=== PATIENT | female | born 1990 | race Caucasian/White ===

== ENCOUNTER 2019-08-29 15:32 | Outpatient (RCR) | payer OTHER, SELFPAY ==
[2019-08-26 15:21] VITALS: BP 113/64; PULSE 91
--- NOTE | ~2019-08-29 | US_ITS ---
US OB BPP wo non-stress DATE: 08/26/2019 15:59 INDICATION: Intrauterine growth retardation TECHNIQUE: Real time imaging and doppler analysis COMPARISON: None FINDINGS: Live diaz intrauterine gestation, fetus in longitudinal lie, vertex presentation. Feta l heart rate of 144 bpm. The placenta is fundal. Subjectively normal amount of amniotic fluid with on e pocket measuring up to 3.4 cm depth. BIOPHYSICAL PROFILE reported by crown and bridge dental lab technician: breathin out of 2 movement: 2 out of 2 tone: 2 out of 2 Amniotic fluid pocket: 2 out of 2 Total score: 8 out of 8 IMPRESSION: Normal biophysical profile of 8 out of 8 Reviewed, dictated and finalized at [facility]. Reviewed, dictated and finalized at location [facility].
[2019-08-29 15:53] VITALS: BP 111/69; PULSE 91
== END 2019-09-07 08:16 | disposition home or self-care (01) ==
LOC: ANHOBOP 15:32
PROVIDERS: Visit Provider Obstetrics & Gynecology
DX: O36.5930 Maternal care for other known or suspected poor fetal growth, third trimester, not applicable or unspecified (principal); Z3A.38 38 weeks gestation of pregnancy
CPT/HCPCS: 59025; 76819

== ENCOUNTER 2019-09-02 05:20 | Inpatient (IN) | payer OTHER, SELFPAY ==
--- NOTE | 2019-08-10 14:56 | PC.NURSE ---
VERIFIED WITH OR SCHEDULE AND PATIENT--09/04/19 AT 0730 PATIENT GIVEN REQUISITION FOR LAB DRAW ON 09/03/19
[2019-09-02] VITALS (57 sets, daily range): BP systolic 82–131; BP diastolic 41–102; PULSE 59–116; RESP 16–18; TEMP 36.2–37.3; O2SAT 99–100; BMI 22.4
[2019-09-02 06:07] LABS: Basophils Percent Auto 0.3 % (0.2-1.2); Eosinophils Percent Auto 0.6 % (0-4.4); Hemoglobin 11.9 g/dL (12.0-15.0); Immature Granulocyte Absolute 0.05 K/mm3 (0.00-0.031); Immature Granulocyte Percent A 0.8 % (0-0.5); Lymphocytes Absolute Auto 1.84 K/mm3 (0.9-3.2); Lymphocytes Percent Auto 27.9 % (18.3-44.2); Mean Corpuscular Hemoglobin 31.2 pg (26-34); Mean Corpuscular Volume 91.6 fl (80-100); Mean Platelet Volume 9.8 fl (7.4-10.4); Monocytes Absolute Auto 0.6 K/mm3 (0.1-0.6); Monocytes Percent Auto 9.7 % (2.6-8.5); Neutrophils Percent Auto 60.7 % (45.5-73.1); Platelet Count Result 186 k/mm3 (150-375); Red Blood Count 3.82 M/mm3 (4.2-5.4); Red Cell Distribution Width 12.9 % (11.5-14.5); White Blood Count 6.6 K/mm3 (4.5-10.0)
[2019-09-02] MEDS: CLINDAMYCIN 900 MG/NS 50 ML 900 MG/50 ML PIGGYBACK 50 MG IVPB (06:31)
[2019-09-02] MEDS: LACTATED RINGERS 1,000 ML 999 ML IV CONT (06:31)
--- NOTE | 2019-09-02 06:43 | LDADM ---
This patient, Janene Bishop, was admitted to Labor/Delivery/Recovery 120 on 09/02/19 at 05:20. Plans for labor, pain management and were discussed with patient. Patient/family oriented to hospital policies and general routines including ID bracelet, bed and alarms, visiting hours, pain management, procedures, bathroom and other care routines, personal items, smoking policy, room service/diet and guest tray routines, security routines, and visiting hours. Patient/Family are encouraged to report perceived risks to care and to ask questions if they do not understand what they are told or what they should do. See OBIX for further documentation.
--- NOTE | 2019-09-02 06:59 | PM.IMHP ---
H&P: HPI History of Present Illness Chief complaint: c/s Narrative: Janene Bishop is a 28 year old female presents for repeat section. She is at 39 weeks with intrauterine growth restriction. testing throughout the last month has been reassuring. records are on the chart and no significant complications or issues other than that noted above. Review of Systems Review of Systems: All systems reviewed & are unremarkable except as noted in HPI and below PMFSH Family History Family History Other Unknown family medical history Social History Social History Substance use: never Spiritual care concerns: No Meds Home Medications and Allergies Home Medications Medication Instructions Recorded Confirmed Type PNV cmb#95-ferrous fumarate-FA 1 tablet PO DAILY 08/10/19 08/10/19 History [] ferrous sulfate 325 mg PO DAILY 08/10/19 08/10/19 History Allergies Allergy/AdvReac Type Severity Reaction Status Date / Time amoxicillin Allergy Severe Respiratory Verified 08/10/19 14:37 Distress Penicillins Allergy Severe Respiratory Verified 08/10/19 14:37 Distress Exam Const: General: no acute distress Resp: Auscultation: clear to auscultation bilaterally Cardio: Rate: regular rate Rhythm: regular rhythm GI: GI Palp: Yes Soft to palpation Auscultation: normal bowel sounds Other: FH 37cm FHT 130 Extrem: General: normal exam except as noted (minimal edema) H&P: Results Labs Labs: Short CBC 09/02/19 Range/Units 05:53 WBC 6.6 (4.5-10.0) K/mm3 Hgb 11.9 L (12.0-15.0) g/dL Hct 35.0 L (37.0-47.0) % Plt Count 186 (150-375) k/mm3 Assessment and Plan Assessment and plan (1) Previous section: Code(s): Z98.891 - History of uterine scar from previous surgery Status: Acute (2) Foetal growth restriction: Status: Acute Additional Plan Repeat delivery. Have discussed tubal ligation and patient declines.
--- NOTE | 2019-09-02 07:15 | P.PNAN_ITS ---
Anes - Initial Pre Proc Eval Procedure: Operation Date: 09/02/19 07:30 Proposed Procedures p Repeat Section - Jarrett Lu MD Date/Time: 09/02/19 07:15 Surgeon: Jarrett Lu MD Pre Op Diagnosis: c/s Patient Data Age: 28 Gender: F Height: 5 ft 1 in Weight: 54 kg Allergies Allergy/AdvReac Type Severity Reaction Status Date / Time amoxicillin Allergy Severe Respiratory Verified 08/10/19 14:37 Distress Penicillins Allergy Severe Respiratory Verified 08/10/19 14:37 Distress Home Medications Medication Instructions Recorded Confirmed Type PNV cmb#95-ferrous fumarate-FA 1 tablet PO DAILY 08/10/19 08/10/19 History [] ferrous sulfate 325 mg PO DAILY 08/10/19 08/10/19 History Laboratory Tests 09/02/19 09/02/19 05:53 05:53 WBC 6.6 K/mm3 K/mm3 (4.5-10.0) RBC 3.82 M/mm3 L M/mm3 (4.2-5.4) Hgb 11.9 g/dL L g/dL (12.0-15.0) Hct 35.0 % L % (37.0-47.0) MCV 91.6 fl fl (80-100) MCH 31.2 pg pg (26-34) MCHC 34.0 g/dl g/dl (32-36) RDW 12.9 % % (11.5-14.5) Plt Count 186 k/mm3 k/mm3 (150-375) MPV 9.8 fl fl (7.4-10.4) Immature Gran % (Auto) 0.8 % H % (0-0.5) Neut % (Auto) 60.7 % % (45.5-73.1) Lymph % (Auto) 27.9 % % (18.3-44.2) [place] % (Auto) 9.7 % H % (2.6-8.5) Eos % (Auto) 0.6 % % (0-4.4) Baso % (Auto) 0.3 % % (0.2-1.2) Lymph # (Auto) 1.84 K/mm3 K/mm3 (0.9-3.2) [place] # (Auto) 0.6 K/mm3 K/mm3 (0.1-0.6) Eos # (Auto) 0.0 K/mm3 K/mm3 (0-0.3) Baso # (Auto) 0.0 K/mm3 K/mm3 (0.0-0.1) Abs Immat Gran (auto) 0.05 K/mm3 H K/mm3 (0.00-0.031) Absolute Neuts (auto) 4.0 K/mm3 K/mm3 (1.3-6.7) Absolute Nucleated RBC 0.0 K/mm3 K/mm3 (0.0-0.012) Nucleated RBC % 0.0 % % (0.0-0.2) RPR Pending Patient hx anesthesia problems: none Family hx anesthesia problems: none PMFSH Family History Family History Other Unknown family medical history Social History Social History Smoking status: Never smoker Substance use: never Spiritual care concerns: No Anes - Eval Final PreProcedure Day of Procedure 09/02/19 07:15 Patient weight: normal Heart: regular rate and rhythm Lungs: clear to auscultation Airway: Mallampati scale class 1 Neurological: alert and oriented Last oral intake: >/= 8 hours ASA classification: II Emergent: no Anesthetic plan: proceed Anesthesia type and monitoring: regional spinal and standard monitoring Informed Consent: The patient's anesthetic plan and its attendant risks and benefits were discussed with the patient/family/POA. Questions were solicited and answers provided to the satisfaction of the patient/family/POA.
--- NOTE | 2019-09-02 08:18 | P.PCNOB_ITS ---
OB - Delivery Note Procedure Delivery date: 09/02/19 Procedure: Procedures LTCS Operation Date: 09/02/19 07:30 <No data on this case meets the specified criteria> Route of delivery: Specimen: Yes (placenta) Estimated blood loss (mL): 400 Anesthesia type: Spinal Disposition: PACU Narrative: Patient was prepped and draped in the usual sterile manner for this procedure. Pfannenstiel incision was made through the prior skin incision. This was then carried down to the fascia which was also incised and extended bilaterally the length of the skin incision. Fascia was then from muscle sharply and bluntly. Midline was entered and the peritoneum was entered without difficulty. Protractor was placed. Uterine incision was then made with clear fluid noted. Vertex was delivered and the rest of the baby followed without difficulty. Placenta was manually expressed and passed off the operative field after blood specimen and blood gases were obtained. Uterus was cleared of clots and then closed using 0 Vicryl suture in a running interlocking manner with good approximation and hemostasis noted. Uterus was turned to the abdomen gutters clear serous and fluids and clots all subfascial tissue was noted be hemostatic. Fascia was approximated using Vicryl suture from left an gle midline Mic low midline with good approximation hemostasis noted. Subcuticular 4 Monocryl was then used to approximate the skin edges. Patient was sent to recovery room in stable condition. [place] Baby Weeks of gestation at delivery: 39 Infant gender: Male Weight (pounds): 7 Weight (ounces): 1 presentation: vertex Placenta delivery description: Expressed score one minute: 8 score five minutes: 9
--- NOTE | 2019-09-02 08:24 | PM.OBPRVD ---
OB - Delivery Note Procedure Delivery date: 09/02/19 Procedure: Procedures Operation Date: 09/02/19 07:30 <No data on this case meets the specified criteria> Route of delivery: Specimen: Yes (placenta) Estimated blood loss (mL): 400 Anesthesia type: Spinal Disposition: PACU Narrative: Patient was prepped and draped in usual sterile manner for this procedure. Pfannenstiel incision was made which was then carried down to the fascia which also was extended bilaterally with the skin incision. Fascia was then dissected away from rectus muscles. Muscles were and the peritoneum was readily entered. Retractor was placed. Pfannenstiel incision was made uterus clear fluid was noted baby was delivered without difficulty in vertex position cord was clamped cut samples were obtained for cord gases blood work. Placenta was then manually expressed from the uterus and the uterus was cleared of membranes and clots. Vicryl was used to approximate incision running interlocking manner with good approximation hemostasis noted retractor was then all subfascial was tissue was noted be hemostatic. Fascia was approximated Vicryl suture right to midline left eyelid good approximation hemostasis noted. Subcuticular layer was then closed using 4 Monocryl running suture. This point CO2 was considered terminated media postop condition mother labor with excellent [place] Baby Weeks of gestation at delivery: 39 Infant gender: Male Weight (pounds): 7 Weight (ounces): 1 presentation: vertex Placenta delivery description: Expressed score one minute: 8 score five minutes: 9
--- NOTE | 2019-09-02 09:03 | PC.NURSE ---
0855 BABY INTO ROOM WITH Keri NGUYEN RN. HELPED WITH LATCH FOR . PT COMFORTABLE.
[2019-09-02 09:32] LABS: Rapid Plasma Reagin Non-Reactive (NonReactive)
--- NOTE | 2019-09-02 10:06 | SUR.PHASEI ---
0835 INTO OBR VIA STRETCHER. MONITORS APPLIED. REPORT FROM Nohemi HENSLEY COUNTER ROLLER
[2019-09-02] MEDS: MEPERIDINE HCL INJ 50 MG/ML AMPUL 25 MG IV PUSH (10:55)
[2019-09-02] MEDS: DEXTROSE 5%/0.45% SOD CHL 1,000 ML 125 ML IV CONT (11:00)
--- NOTE | 2019-09-02 13:38 | SUR.PHASEI ---
1230 RECOVERY COMPLETE AT 1100, BABY IN THE NURSERY BREATHING FAST AND EVALUATED BY DR ORTIZ SOLDER LEVELER PRINTED [employer] BOARDS AND WANTED MOM TO STAY AND TRY TO BREASTFEED ONE MORE TIME BEFORE TRANSFER TO [facility].
[2019-09-02] MEDS: IBUPROFEN 600 MG TABLET PO ×2 (14:13→22:26)
--- NOTE | 2019-09-02 17:44 | OBPPTRN ---
Patient transferred to post room #277 per stretcher. Support person present. Oriented to unit, room, information board, rooming in, admission packet and security measures. Patient verbalizes understanding.
[2019-09-03 05:00] VITALS: BP 96/57; PULSE 83; RESP 16; TEMP 36.3; O2SAT 99
[2019-09-03] MEDS: SIMETHICONE 80 MG TAB.CHEW PO ×5 (05:11→19:28)
[2019-09-03] MEDS: IBUPROFEN 600 MG TABLET PO ×3 (05:11→17:10)
[2019-09-03 06:32] LABS: Basophils Percent Auto 0.3 % (0.2-1.2); Eosinophils Percent Auto 0.5 % (0-4.4); Hematocrit 28.2 % (37.0-47.0); Hemoglobin 8.9 g/dL (12.0-15.0); Immature Granulocyte Absolute 0.04 K/mm3 (0.00-0.031); Immature Granulocyte Percent A 0.5 % (0-0.5); Lymphocytes Absolute Auto 1.24 K/mm3 (0.9-3.2); Lymphocytes Percent Auto 14.2 % (18.3-44.2); Mean Corpuscular HGB Conc 31.6 g/dl (32-36); Mean Corpuscular Hemoglobin 31.1 pg (26-34); Mean Corpuscular Volume 98.6 fl (80-100); Mean Platelet Volume 10.1 fl (7.4-10.4); Monocytes Absolute Auto 0.7 K/mm3 (0.1-0.6); Monocytes Percent Auto 8.5 % (2.6-8.5); Neutrophils Absolute Auto 6.6 K/mm3 (1.3-6.7); Platelet Count Result 147 k/mm3 (150-375); Red Blood Count 2.86 M/mm3 (4.2-5.4); Red Cell Distribution Width 13.3 % (11.5-14.5); White Blood Count 8.7 K/mm3 (4.5-10.0)
[2019-09-03 07:35] VITALS: BP 92/54; PULSE 82; RESP 16; TEMP 37.2; O2SAT 99
[2019-09-03] MEDS: POLYSACCHARIDE IRON COMPLEX 150 MG CAPSULE PO ×2 (08:32→17:10)
[2019-09-03] MEDS: MULTIVIT/MIN/PREN/FOL AC/IRON TABLET 1 TAB PO (08:32)
[2019-09-03] MEDS: DOCUSATE SODIUM 100 MG CAPSULE PO ×2 (08:32→17:10)
--- NOTE | 2019-09-03 09:39 | PM.OBDSVD ---
DS: Diagnosis Admitting Diagnosis Admitting Diagnosis: History of uterine scar from previous surgery OB - DS: Summary OB Procedures : None OB Procedures Intrapartum: OB Procedures: : None Peripartum Data Procedures: Procedures Operation Date: 09/02/19 07:30 Actual Procedures Side Surgeon p Section Not Applicable Lion Acevedo DO Time Spent with Patient Time attestation: Total time spent providing and/or coordinating discharge services: DS: Data Data Completed and Pending Pending studies at discharge: Pending at discharge 09/02/19 08:02 Surgical [PTH] Routine Labs on day of discharge: Labs from last 24 hours 09/03/19 09/03/19 09/02/19 04:55 04:55 05:53 WBC 8.7 RBC 2.86 L Hgb 8.9 L D Hct 28.2 L MCV 98.6 D MCH 31.1 MCHC 31.6 L RDW 13.3 Plt Count 147 L MPV 10.1 Immature Gran % (Auto) 0.5 Neut % (Auto) 76.0 H Lymph % (Auto) 14.2 L [place] % (Auto) 8.5 Eos % (Auto) 0.5 Baso % (Auto) 0.3 Lymph # (Auto) 1.24 [place] # (Auto) 0.7 H Eos # (Auto) 0.0 Baso # (Auto) 0.0 Abs Immat Gran (auto) 0.04 H Absolute Neuts (auto) 6.6 Absolute Nucleated RBC 0.0 Nucleated RBC % 0.0 Blood Type O Negative Antibody Screen Positive Antibody Identification Passive Due to RH Imm Glob Passive Due to RH Imm Glob Antigen Identification Cancelled Cancelled AYESHA, IgG Interpret Not Performed Negative AYESHA, Poly Interpret Negative Negative AYESHA, Complement Interp Not Performed Not Performed Screen Negative Baby's Blood Type A pos Baby's AYESHA Negative Doses of RhIg Required 1 Discharge Plan Discharge Discharging Clinician: Jarrett Lu Patient Disposition: Home, Self-Care Activity: no shower Diet: as tolerated Wound Care Instructions: incision open to air Patient Instructions: Antibiotic Form Stand Alone Forms: General Discharge Information Follow-up/Referrals: Jarrett Lu MD [Physician] - 3 Weeks Discharge Medications: New hydrocodone-acetaminophen 5-325 mg Tablet 1 tab PO Q3H PRN (Reason: Moderate Pain (4-6)) Qty: 30 RF: 0 ibuprofen 600 mg Tablet 600 mg PO Q6H PRN (Reason: Cramping) Qty: 30 RF: 0 Continued ferrous sulfate 325 mg (65 mg iron) Tablet 325 mg PO DAILY RF: 0 PNV cmb#95-ferrous fumarate-FA [] 28 mg iron- 800 mcg Tablet 1 tablet PO DAILY RF: 0 Date of admission: 09/02/19 05:20 Primary Care Provider: UNKNOWN,DOCTOR Admitting Provider: Jarrett Lu Attending physician on admission: Jarrett Lu
--- NOTE | 2019-09-03 11:30 | PC.NURSE ---
Mother called out for assist with feeding. Mother reports tenderness to nipples with feeding. Both nipples are reddened with possible incorrect latch. Reviewed infant feeding cues, frequencies, duration of feedings, feeding elimination flow sheet, and signs of adequate intake. Demonstrated stimulation techniques to wake infant for feeding. Assisted with to breast. Reviewed positioning/alignment in cross cradle, holding breast in U hold and guided asymmetrical latch on. Discussed rational for each. was able to latch correctly. Mother reports she can feel infant is latched more deeply than previous. nursed eagerly, with steady draws and frequent swallowing noted. Reviewed signs of a correct latch, effective nursing and suck swallow ratio. was able to maintain latch without discomfort to mother. Suggested to stimulate to keep infant nursing effectively for increased intake and assist maintaining deep latch. Demonstrated how to adjust latch more deeply while feeding. Nipple care reviewed. Instructed mother to call out for RN assistance if she is unable to latch infant for feeding or she has discomfort with nursing. Instructed feeding should be initiated three hours from start of last feeding or if feeding cues are noted before. Mother voiced understanding of information shared.
[2019-09-03] MEDS: RHO(D) IMMUNE GLOBULIN 300 MCG SYRINGE IM (15:20)
[2019-09-03 21:00] VITALS: BP 104/61; PULSE 88; RESP 16; TEMP 36.9; O2SAT 100
[2019-09-04] MEDS: SIMETHICONE 80 MG TAB.CHEW PO ×2 (00:55→10:09)
[2019-09-04] MEDS: IBUPROFEN 600 MG TABLET PO ×2 (00:55→10:10)
[2019-09-04 08:55] VITALS: BP 96/58; PULSE 77; RESP 16; TEMP 36.6; O2SAT 99
[2019-09-04] MEDS: DOCUSATE SODIUM 100 MG CAPSULE PO (10:09)
[2019-09-04] MEDS: POLYSACCHARIDE IRON COMPLEX 150 MG CAPSULE PO (10:09)
[2019-09-04] MEDS: MULTIVIT/MIN/PREN/FOL AC/IRON TABLET 1 TAB PO (10:09)
[2019-09-04] MEDS: TETANUS,DIPHTHERIA,AC PERTUSSIS ADULT (0.5 ML) BOOSTRIX (10:10)
[2019-09-05 10:06] VITALS: BP 108/65; PULSE 93; RESP 16; TEMP 36.8
--- NOTE | 2019-09-07 20:23 | PM.OBDSVD ---
DS: Diagnosis Admitting Diagnosis Admitting Diagnosis: History of uterine scar from previous surgery OB - DS: Summary OB Procedures : None OB Procedures Intrapartum: OB Procedures: : None Peripartum Data Procedures: Procedures Operation Date: 09/02/19 07:30 Actual Procedures Side Surgeon p Section Not Applicable Lion Acevedo DO Time Spent with Patient Time attestation: Total time spent providing and/or coordinating discharge services: DS: Data Data Completed and Pending Completed studies during hospitalization: Pending at discharge 09/02/19 08:02 Surgical [PTH] Routine Discharge Plan Discharge Discharging Clinician: Jarrett Lu Patient Disposition: Home, Self-Care Activity: no shower Diet: as tolerated Wound Care Instructions: incision open to air Discharge Instructions: Education: Mom and Baby Guide Given to: Mother Follow-Up: Call your delivering provider's office for an appointment to be seen in: 1 Week Mom and baby should come to the [facility] for the follow-up appointment. Appointment Date/Time: September 05, 2019 at 10:00 am What to expect at your follow-up visit: Physical Assessment Call [phone] if you are unable to keep your appointment time. BREAST CARE: 1. Wear a snug supportive bra. 2. For engorgement discomfort: Breast Feeding: A. Apply warm moist washcloths B. Express milk as needed to relieve engorgement C. Wear loose clothing 3. For sore nipples: A. Identify correct latch-on B. Apply warm moist washcloths before and after nursing C. Air dry nipples after nursing D. May apply Lansinoh cream to nipples ABDOMINAL INCISION: 1. Allow incision to air dry 2. Do NOT use lotions for powders on your incision 3. When showering, allow soap and water to run over the incision, but do not wash incision PERINEAL CARE: 1. Until bleeding stops, use your zackery bottle after urinating 2. Change your pad frequently throughout the day 3. No tub baths until seen by your physician - You may shower ACTIVITY: 1. Rest as much as possible. 2. Do not exercise or lift anything heavier than your baby (such as laundry or other children.) 3. Avoid stairs or driving as much as possible. 4. Do not put anything into the vagina. No douching, tampons, or sexual activity until seen by physician. NOTIFY PHYSICIAN IF YOU HAVE ANY QUESTIONS OR IF ANY OF THE FOLLOWING SYMPTOMS OCCUR: 1. If your incision becomes red, swollen, or more painful than what you have experienced in the hospital. 2. If your vaginal bleeding becomes foul smelling. 3. If your vaginal bleeding becomes more heavy than a period or if your bleeding changes from pink to bright red. However, you may pass an occasional walnut-sized clot once or twice for the first week . 4. If you experience a sharp, shooting pain in you calves. 5. If you discover a hard, reddened area on your breast or if you experience flu-like symptoms. DIET: 1. Eat regular, well-balanced meals. 2. Drink plenty of fluids daily. If , drink to thirst. Patient Instructions: Antibiotic Form Stand Alone Forms: General Discharge Information Follow-up/Referrals: Jarrett Lu MD [Physician] - 3 Weeks Discharge Medications: New hydrocodone-acetaminophen 5-325 mg Tablet 1 tab PO Q3H PRN (Reason: Moderate Pain (4-6)) Qty: 30 RF: 0 ibuprofen 600 mg Tablet 600 mg PO Q6H PRN (Reason: Cramping) Qty: 30 RF: 0 Continued ferrous sulfate 325 mg (65 mg iron) Tablet 325 mg PO DAILY RF: 0 PNV cmb#95-ferrous fumarate-FA [] 28 mg iron- 800 mcg Tablet 1 tablet PO DAILY RF: 0 Date of admission: 09/02/19 05:20 Primary Care Provider: UNKNOWN,DOCTOR Admitting Provider: Jarrett Lu Discharge Date/Time: 09/04/19 11:50 Attending physician on admission: Jarrett Lu
== END 2019-09-04 11:50 | disposition home or self-care (01) | DRG 540 ==
LOC: ANHLDR 05:23 → ANHOB2 12:41
PROVIDERS: Obstetrics & Gynecology; Admitting Provider Obstetrics & Gynecology; Visit Provider Obstetrics & Gynecology
PROC: (CPT 59514; principal; 2019-09-02 07:30)
DX: O36.5930 Maternal care for other known or suspected poor fetal growth, third trimester, not applicable or unspecified (principal); Z37.0 Single live birth; Z3A.39 39 weeks gestation of pregnancy
CPT/HCPCS: 36415; 85025; 86592; 86850; 86880; 86900; 86901; 86902; 88307; 90384; 90715; A9270; J0131; J1200; J1580; J2175; J2274; J2405; J2590; J2790; J7120

== ENCOUNTER 2021-01-28 21:42 | Emergency (ER) | payer OTHER, SELFPAY ==
--- NOTE | ~2021-01-28 | XR_ITS ---
XR chest 2V DATE: 01/28/2021 22:18 INDICATION: Cough. Left-sided chest pain. TECHNIQUE: PA and lateral views COMPARISON: None FINDINGS: There are bilateral cervical ribs. Mild thoracic dextroscoliosis. Bilateral hyperinflation. No pulmonary infiltrate or consolidation, pleural effusion or pulmonary vas cular congestion or pneumothorax. Normal heart size. No hilar or mediastinal enlargement. IMPRESSION: Bilateral hyperinflation; no active cardiac pulmonary disease Reviewed, dictated and finalized at location [facility].
--- NOTE | ~2021-01-28 | CT_ITS ---
EXAMINATION: CTA chest PE protocol DATE: 01/29/2021 02:15 INDICATION: Chest pain, shortness of breath TECHNIQUE: Computed tomography angiography (CTA) of the chest was performed with 100 mL Omnipaque-350 intravenous contrast timed to evaluate the pulmonary arteries. Coronal maximum intensity projection 3D-reconstructions were created by the technologist. Automated exposure control and iterative reconst ruction technique were employed. Exam dose: 144.10 mGy-cm total exam DLP. COMPARISON: PA and lateral chest FINDINGS: No CT evidence of pulmonary embolism. Normal heart size. No pericardial or pleural effusion. No thoracic aortic aneurysm or dissection. Normal size and homogeneous enhancement of the thyroid gland. No hilar or mediastinal mass lesion or lymphadenopathy No pulmonary infiltrate or consolidation or pulmonary mass lesion.. The adrenal glands and included upper abdominal structures are unremarkable. The skeletal structures are unremarkable. IMPRESSION: No evidence of pulmonary embolism Reviewed, dictated and finalized at [facility]. Reviewed, dictated and finalized at location A.
[2021-01-28 21:49] VITALS: BP 137/89; PULSE 123; RESP 20; TEMP 36.8; O2SAT 100
[2021-01-28 21:55] VITALS: BP 137/89; PULSE 106; RESP 11
[2021-01-28 22:01] VITALS: BP 137/85; PULSE 99; RESP 20
[2021-01-28] MEDS: KETOROLAC 30 MG/ML VIAL (*BKC) IV PUSH (22:31)
[2021-01-28 23:01] LABS: Basophils Absolute Auto 0.1 K/mm3 (0.0-0.1); Basophils Percent Auto 0.7 % (0.2-1.2); Eosinophils Absolute Auto 0.1 K/mm3 (0-0.3); Eosinophils Percent Auto 1.9 % (0-4.4); Hematocrit 37.5 % (37.0-47.0); Hemoglobin 12.4 g/dL (12.0-15.0); Immature Granulocyte Absolute 0.01 K/mm3 (0.00-0.031); Immature Granulocyte Percent A 0.1 % (0-0.5); Lymphocytes Absolute Auto 2.73 K/mm3 (0.9-3.2); Lymphocytes Percent Auto 37.8 % (18.3-44.2); Mean Corpuscular HGB Conc 33.1 g/dl (32-36); Mean Corpuscular Hemoglobin 30.2 pg (26-34); Mean Corpuscular Volume 91.2 fl (80-100); Mean Platelet Volume 9.5 fl (7.4-10.4); Monocytes Absolute Auto 0.6 K/mm3 (0.1-0.6); Monocytes Percent Auto 8.7 % (2.6-8.5); Neutrophils Absolute Auto 3.7 K/mm3 (1.3-6.7); Neutrophils Percent Auto 50.8 % (45.5-73.1); Platelet Count Result 273 k/mm3 (150-375); Red Blood Count 4.11 M/mm3 (4.2-5.4); Red Cell Distribution Width 12.2 % (11.5-14.5); White Blood Count 7.2 K/mm3 (4.5-10.0)
[2021-01-28 23:26] LABS: Anion Gap 13 mmol/L (8-16); Blood Urea Nitrogen 12 mg/dL (7-17); Calcium 9.8 mg/dL (8.4-10.2); Carbon Dioxide 21 mmol/L (22-30); Chloride 102 mmol/L (98-107); Estimated CRCL calculation 89 ml/min; Estimated Glomerular Filt Rate > 60; Glucose 102 mg/dL (65-110); Potassium 3.4 mmol/L (3.4-5.0); Sodium 136 mmol/L (137-145)
[2021-01-28 23:38] LABS: Troponin I < 0.012 ng/mL (0.000-0.034)
[2021-01-29 00:09] VITALS: BP 134/84; PULSE 108; RESP 15; O2SAT 96
--- NOTE | 2021-01-29 00:34 | ED.GENADULT ---
HPI - General Adult General Chief complaint: Chest Pain Stated complaint: chest pain x 2 days, dry cough, headache Time Seen by Provider: 01/28/21 21:45 History of Present Illness HPI narrative: Patient is a 30-year-old female who presents ER with chest tightness. Ongoing for 2 days. Center of her chest. Cannot describe any aggravating or alleviating factors. Occasionally will go away. Reports some chest wall tenderness left lateral chest near the axilla and above the breast. No known trauma. Also had recent URI was swabbed for Covid which was negative. Reports her entire family had a cold. She denies productive cough of the time but does have a dry cough. No exertional component to the chest pain. Patient also reports mild headache that occasionally improves with [id number] pain medication. Patient does reports mild anxiety regarding this. Additionally patient reports that she recently passed a tonsil stone over the last couple days. No sore throat. Related Data Allergies Allergy/AdvReac Type Severity Reaction Status Date / Time amoxicillin Allergy Severe Respiratory Verified 01/28/21 21:57 Distress Penicillins Allergy Severe Respiratory Verified 01/28/21 21:57 Distress Review of Systems Review of Systems: All systems reviewed & are unremarkable except as noted in HPI and below Constitutional: Constitutional: Denies chills, Denies fever(s) and Denies weakness ENT: Denies nasal congestion and Denies sore throat Cardiovascular: Cardiovascular: Reports chest pain, Denies rapid heart rate and Denies radiating jaw, neck or arm pain Respiratory: Respiratory: Reports cough, Denies dyspnea and Denies wheezing Gastrointestinal: Gastrointestinal: Denies abdominal pain, Denies nausea and Denies vomiting Musculoskeletal: Musculoskeletal: Denies back pain and Denies muscle cramps Psychiatric: Psychiatric: Reports anxiety PMFSH Past Medical History Medical History (Updated 01/29/21 @ 03:01 by Marcio Iraheta MD) Healthy female adult Surgical History Surgical History (Updated 01/29/21 @ 00:47 by Marcio Iraheta MD) History of section Family History Family History Other Unknown family medical history Social History Social History Smoking status: Never smoker Substance use: never Spiritual care concerns: No Exam Narrative: GENERAL: Well-appearing, well-nourished, and in no acute distress. HEAD: Normocephalic, atraumatic. ENT: Mucous membranes moist. Normal posterior oropharynx without tonsillar hypertrophy or exudate. Uvula midline nonedematous. NECK: Supple. CHEST: Clear to auscultation. No respiratory distress. HEART: Regular rate and rhythm. Normal peripheral pulses. ABDOMEN: Soft, nontender, nondistended. EXTREMITIES: Normal range of motion. No edema. SKIN: Warm, dry, no rash. NEURO: Alert and oriented x3. PSYCH: Normal mood and affect. Course Course Emergency Course: Patient with occasional tachycardia. She reports that she is anxious. S1Q3T3, negative CTA. Informed results and gave reassurance. She does not have a PCP so we will give her the name of the on-call primary. Discussed return precautions and patient verbalized understanding. Vital Signs Vital signs: Vital Signs Temperature 98.3 F 01/28/21 21:49 Pulse Rate 123 H 01/28/21 21:49 Respiratory Rate 20 01/28/21 21:49 Blood Pressure 137/89 01/28/21 21:49 Pulse Oximetry 100 01/28/21 21:49 Temperature 98.3 F 01/28/21 21:49 Pulse Rate 95 01/29/21 01:51 Respiratory Rate 18 01/29/21 01:51 Blood Pressure 124/75 01/29/21 01:51 Pulse Oximetry 98 01/29/21 01:51 Medical Decision Making Vital Signs Vital Signs: Vital Signs Temperature 98.3 F 01/28/21 21:49 Pulse Rate 123 H 01/28/21 21:49 Respiratory Rate 20 01/28/21 21:49 Blood Pressure
--- NOTE | 2021-01-29 00:48 | ECG_ITS ---
Measurements Intervals [place] Rate: 97 P: 56 AL: 137 QRS: 83 QRSD: 88 T: 14 QT: 323 QTc: 412 Interpretive Statements SINUS RHYTHM BASELINE ARTIFACT- II, V3-V6 NORMAL ECG Electronically Signed On 01-29-2021 6:39:41 CDT by Floyd Diehl D.O.
[2021-01-29 01:51] VITALS: BP 124/75; PULSE 95; RESP 18; O2SAT 98
[2021-01-29 03:15] VITALS: BP 128/76; PULSE 88; RESP 16; O2SAT 100
== END 2021-01-29 03:35 | disposition home or self-care (01) ==
PROVIDERS: Emergency Provider Emergency Medicine
DX: R07.89 Other chest pain (principal)
CPT/HCPCS: 36415; 71046; 71275; 80048; 84484; 85025; 93005; 96374; 99284; J1885; Q9967

== ENCOUNTER 2021-02-06 12:37 | Emergency (ER) | payer OTHER, SELFPAY ==
[2021-02-06 12:59] VITALS: BP 153/94; PULSE 108; RESP 18; TEMP 37.1; O2SAT 100
[2021-02-06 15:09] VITALS: BP 131/79; PULSE 92; RESP 16; TEMP 36.9; O2SAT 100
[2021-02-06 16:08] VITALS: BP 138/99; PULSE 98; RESP 18; O2SAT 100
--- NOTE | 2021-02-06 16:22 | ED.GENADULT ---
HPI - General Adult General Chief complaint: Unspecified Stated complaint: WEAK Time Seen by Provider: 02/06/21 16:10 Source: patient Mode of arrival: ambulatory Limitations: no limitations History of Present Illness HPI narrative: Patient is a 30-year-old female complaining of fatigue, generalized weakness, cough nonproductive and body aches that started 1 week ago. Patient wants to be tested for Covid. Patient states that she has not been vaccinated. Patient denies any chest pain, shortness of breath, abdominal pain, nausea, vomiting, diarrhea, fever or chills. Related Data Home Medications Medication Instructions Recorded Confirmed No Home Medications 02/06/21 02/06/21 Allergies Allergy/AdvReac Type Severity Reaction Status Date / Time amoxicillin Allergy Severe Respiratory Verified 02/06/21 16:11 Distress Penicillins Allergy Severe Respiratory Verified 02/06/21 16:11 Distress Review of Systems Review of Systems: All systems reviewed & are unremarkable except as noted in HPI and below Constitutional: Constitutional: Denies chills, Denies excessive sweating, Denies fever(s), Denies headache(s), Denies lethargy, Denies malaise and Denies weight loss Eyes: Eyes: Denies blurry vision, Denies change in vision and Denies loss of vision ENT: Denies dizziness, Denies ear discharge, Denies headache(s), Denies lip swelling, Denies epistaxis, Denies nasal congestion, Denies neck pain, Denies throat swelling and Denies tongue swelling Cardiovascular: Cardiovascular: Denies chest pain, Denies chest pain at rest, Denies chest pain with activity, Denies diaphoresis, Denies rapid heart rate, Denies edema, Denies irregular heart rhythm, Denies lightheadedness, Denies palpitations, Denies dyspnea and Denies dyspnea on exertion Respiratory: Respiratory: Denies chest congestion, Denies hemoptysis, Denies dyspnea and Denies dyspnea on exertion Gastrointestinal: Gastrointestinal: Denies abdominal pain, Denies melena, Denies hematochezia, Denies diarrhea, Denies nausea, Denies vomiting and Denies hematemesis Musculoskeletal: Musculoskeletal: Denies abnormal gait, Denies deformity, Denies joint swelling, Denies limited range of motion, Denies neck pain and Denies numbness Neurologic: Denies Abnormal speech present, Denies abnormal gait, Denies confusion, Denies dizziness, Denies headache(s), Denies focal weakness, Denies loss of vision, Denies numbness, Denies Other visual disturbances, Denies Sensory deficit (Neuro) and Denies weakness Psychiatric: Psychiatric: Denies confusion, Denies depression, Denies auditory hallucinations, Denies homicidal ideation and Denies suicidal ideation Endocrine: Endocrine: Denies cold intolerance, Denies excessive sweating, Denies fatigue, Denies heat intolerance and Denies palpitations Hematologic/Lymphatic: Hematologic/Lymphatic: Denies easy bleeding and Denies easy bruising Allergic/Immunologic: Allergic/Immunologic: Denies lip swelling, Denies throat swelling and Denies tongue swelling PMFSH Past Medical History Medical History (Updated 02/06/21 @ 18:09 by Nomi aJnsen MD) Healthy female adult Surgical History Surgical History (Updated 01/29/21 @ 00:47 by Marcio Iraheta MD) History of section Family History Family History Other Unknown family medical history Social History Social History Smoking status: Never smoker Substance use: never Spiritual care concerns: No Comments Past medical history: None Family history: None Social history: Non-smoker no EtOH or drug use Exam Const: General: cooperative, healthy appearing, comfortable, no acute distress, well developed, alert and awake; No confusion Orientation/consciousness: oriented to person, oriented to place, oriented to time, patient oriented x3 and No confusion Limitations: n
[2021-02-06 18:45] VITALS: BP 129/85; PULSE 79; RESP 16; TEMP 36.4; O2SAT 97
[2021-02-07 19:54] LABS: SARS-CoV-2 RNA PCR Negative
== END 2021-02-06 18:47 | disposition home or self-care (01) ==
PROVIDERS: Emergency Provider Emergency Medicine; PCP Nurse Practitioner Family
DX: B34.9 Viral infection, unspecified (principal); Z20.822 Contact with and (suspected) exposure to COVID-19
CPT/HCPCS: 99283; C9803; U0003; U0005

== ENCOUNTER 2022-04-22 19:00 | Emergency (ER) | payer OTHER, SELFPAY ==
--- NOTE | ~2022-04-22 | XR_ITS ---
XR ankle RT min 3V DATE: 04/22/2022 19:20 INDICATION: Right ankle swelling and pain after missing a step TECHNIQUE: 3 views of right ankle COMPARISON: None FINDINGS: There is a transverse fracture at the lateral malleolus inferiorly with up to 3 mm inferior separation of the distal fracture fragment laterally but otherwise no significant displacement.. The re is overlying lateral soft tissue swelling. The medial malleolus and posterior malleolus are intact. The ankle mortise is preserved. IMPRESSION: Mildly inferiorly displaced lateral malleolar fracture with overlying soft tissue swellin g Reviewed, dictated and finalized at location A. NDER WIND UP TENDER IMPRESSION: Mildly inferiorly displaced lateral malleolar fracture with overlyi ng soft tissue swelling
[2022-04-22 19:23] VITALS: BP 132/72; PULSE 111; RESP 18; TEMP 37.7; O2SAT 100
--- NOTE | 2022-04-22 20:15 | ED.LOWEXIN ---
HPI - Extremity Injury (Lower) General Chief Complaint: Extremity Injury, Lower Stated Complaint: right ankle injury, missed step Time Seen by Provider: 04/22/22 20:12 History of Present Illness HPI Narrative: Patient is a 31-year-old female who presents ER with right ankle pain. Patient was stepping down a step when she twisted her ankle and felt a pop. She had sudden onset pain. She has swelling over lateral malleolus. No numbness or tingling. No additional injury. Related Data Allergies Allergy/AdvReac Type Severity Reaction Status Date / Time amoxicillin Allergy Severe Respiratory Verified 02/06/21 16:11 Distress Penicillins Allergy Severe Respiratory Verified 02/06/21 16:11 Distress Review of Systems Review of Systems: All systems reviewed & are unremarkable except as noted in HPI and below Musculoskeletal: Musculoskeletal: Reports arthralgias, Reports joint swelling and Denies muscle cramps Neurologic: Denies syncope, Denies focal weakness and Denies numbness PMFSH Past Medical History Medical History (Updated 04/22/22 @ 20:16 by Marcio Iraheta MD) Healthy female adult Surgical History Surgical History (Updated 01/29/21 @ 00:47 by Marcio Iraheta MD) History of section Family History Family History Other Unknown family medical history Social History Social History Smoking status: Never smoker Substance use: never Spiritual care concerns: No Exam Narrative: GENERAL: Well-appearing, well-nourished, and in no acute distress. HEAD: Normocephalic, atraumatic. HEART: Regular rate and rhythm. Normal peripheral pulses. ABDOMEN: Soft, nontender, nondistended. EXTREMITIES: Swelling and tenderness over the lateral malleolus of the right ankle. Limited range of motion due to pain. Neurovascular intact. SKIN: Warm, dry, no rash. NEURO: Alert and oriented x3. PSYCH: Normal mood and affect. Course Vital Signs Vital signs: Vital Signs Temperature 99.8 F H 04/22/22 19:23 Pulse Rate 111 H 04/22/22 19:23 Respiratory Rate 18 04/22/22 19:23 Blood Pressure 132/72 04/22/22 19:23 Pulse Oximetry 100 04/22/22 19:23 Oxygen Delivery Room Air 04/22/22 19:23 Temperature 99.8 F H 04/22/22 19:23 Pulse Rate 111 H 04/22/22 19:23 Respiratory Rate 18 04/22/22 19:23 Blood Pressure 132/72 04/22/22 19:23 Pulse Oximetry 100 04/22/22 19:23 Oxygen Delivery Room Air 04/22/22 19:23 Procedures Orthopedic Splinting/Casting Injury #1: Splinting/Casting Date: 04/22/22 Splinting/Casting Time: 20:28 Side: right Lower Extremity Injury Location: ankle Lower Extremity Immobilizer: stirrup splint Splint: customized in ED OCL: stirrup Pre-Procedure Neuro Vascular Exam: normal Post-Procedure Neuro Vascular Exam: normal Other Orthopedic Equipment: crutches MDM - Extremity Injury (Lower) Imaging Data Radiologist's impression: ITS Impressions Ankle X-Ray 04/22/22 19:21 IMPRESSION: Mildly inferiorly displaced lateral malleolar fracture with overlying soft tissue swelling Discharge Plan Discharge Clinical Impression: Ankle fracture Patient Disposition: Home, Self-Care Condition: Stable Instructions: Ankle Fracture (ED), Crutch Instructions (ED) Additional Instructions: Return the ER if you suffer recurrent injury, you have cold blue foot, you have chest pain or shortness of breath, you have additional concerns. Do not bear weight on the affected extremity. Follow-up with orthopedic surgery. Prescriptions: New hydrocodone-acetaminophen 5-325 mg tablet 1 tablet PO Q6H PRN (Reason: pain) Qty: 14 0RF Follow-up/Referrals: Mecca,Jen Iverson APRN [Primary Care Provider] - Hany Dias MD [Physician] - 1 Week
[2022-04-22] MEDS: HYDROcodone/acetaminophen (*CRX) 5-325 MG TABLET 1 TAB PO (20:44)
--- NOTE | 2022-04-22 20:48 | PC.NURSE ---
Pt refused [place] after scanning. Unable to undo administration in AUG. Wasted per protocol.
[2022-04-22] MEDS: ACETAMINOPHEN 325 MG TABLET 650 MG PO (20:54)
== END 2022-04-22 21:03 | disposition home or self-care (01) ==
LOC: ANHED 20:38
PROVIDERS: Emergency Provider Emergency Medicine; PCP Nurse Practitioner Family
DX: S82.61XA Displaced fracture of lateral malleolus of right fibula, initial encounter for closed fracture (principal); X50.9XXA Other and unspecified overexertion or strenuous movements or postures, initial encounter
CPT/HCPCS: 29515; 73610; 99284; A9270

== ENCOUNTER 2022-05-09 15:39 | Observation (INO) | payer OTHER, SELFPAY ==
[2022-05-09] VITALS (11 sets, daily range): BP systolic 114–138; BP diastolic 61–86; PULSE 116–145; RESP 12–21; TEMP 36.8; O2SAT 98–100
--- NOTE | ~2022-05-09 | US_ITS ---
EXAMINATION: US thyroid DATE: 05/10/2022 16:21 INDICATION: Hyperthyroidism. TECHNIQUE: Multiple ultrasound images of the thyroid were obtained. COMPARISON: None. FINDINGS: The right thyroid lobe measures 5.1 x 1.3 x 1.8 cm. The left thyroid lobe measures 4.2 x 1.2 x 1.4 c m. The thyroid is diffusely heterogeneous and hypoechoic with increased vascularity. No discrete nod ule. IMPRESSION: 1. Heterogeneous, hypervascular thyroid, consistent with chronic lymphocytic (Alex) thyroiditis versus Graves' disease. Reviewed, dictated and finalized at location A. SCAPE DRAFTER IMPRESSION: 1. Heterogeneous, hypervascular thyroid, consistent with chronic lymphocytic (H ashimoto) thyroiditis versus Graves' disease.
--- NOTE | ~2022-05-09 | XR_ITS ---
EXAMINATION: XR chest 1V portable Exam Date/Time: 05/09/2022 16:15 ONSITE CASE MANAGER HISTORY: sob x 2 days; tachycardia Comparison: 01/28/2021. RESULT: Lines, tubes, and devices: None. Lungs and pleura: Clear. Cardiomediastinal silhouette: Stable. Other: No acute osseous or upper abdominal finding. IMPRESSION: No acute cardiopulmonary process. Reviewed, dictated and finalized at location K. TE CASE MANAGER
--- NOTE | 2022-05-09 15:45 | ECG_ITS ---
Measurements Intervals [place] Rate: 140 P: 75 NV: 134 QRS: 86 QRSD: 79 T: 27 QT: 294 QTc: 449 Interpretive Statements SINUS TACHYCARDIA MINIMAL Q WAVES- INFERIOR LEADS NONSPECIFIC ST & T-WAVE ABNORMALITY- INFERIOR LEADS ABNORMAL ECG COMPARED TO ECG 01/29/2021 00:58:44 [address]ARDIA NOW PRESENT ST-T-WAVE ABNORMALITY NOW PRESENT Electronically Signed On 05-09-2022 16:13:24 MULTIGRAPHER by Floyd Diehl D.O.
[2022-05-09 15:57] LABS: Basophils Percent Auto 0.2 % (0.2-1.2); Eosinophils Percent Auto 0.1 % (0-4.4); Hematocrit 38.1 % (37.0-47.0); Hemoglobin 12.8 g/dL (12.0-15.0); Immature Granulocyte Absolute 0.05 K/mm3 (0.00-0.031); Immature Granulocyte Percent A 0.4 % (0-0.5); Lymphocytes Absolute Auto 1.44 K/mm3 (0.9-3.2); Lymphocytes Percent Auto 11.4 % (18.3-44.2); Mean Corpuscular HGB Conc 33.6 g/dl (32-36); Mean Corpuscular Hemoglobin 29.8 pg (26-34); Mean Corpuscular Volume 88.6 fl (80-100); Mean Platelet Volume 9.2 fl (7.4-10.4); Monocytes Absolute Auto 0.6 K/mm3 (0.1-0.6); Neutrophils Absolute Auto 10.5 K/mm3 (1.3-6.7); Neutrophils Percent Auto 82.9 % (45.5-73.1); Platelet Count Result 316 k/mm3 (150-375); Red Cell Distribution Width 11.4 % (11.5-14.5); White Blood Count 12.7 K/mm3 (4.5-10.0)
[2022-05-09 16:08] LABS: Alanine Aminotransferase 18 U/L (6-35); Albumin Level 4.7 g/dL (3.5-5.1); Alkaline Phosphatase 58 U/L (38-126); Anion Gap 11 mmol/L (8-16); Aspartate Amino Transferase 21 U/L (14-36); Bilirubin,Total 0.5 mg/dL (0.2-1.3); Blood Urea Nitrogen 11 mg/dL (7-17); Calcium 9.5 mg/dL (8.4-10.2); Carbon Dioxide 18 mmol/L (22-30); Chloride 105 mmol/L (98-107); Estimated CRCL calculation 104 ml/min; Estimated Glomerular Filt Rate > 60; Glucose 111 mg/dL (65-110); Potassium 3.6 mmol/L (3.4-5.0); Sodium 134 mmol/L (137-145)
--- NOTE | 2022-05-09 16:12 | ED.ARRPALP ---
HPI - Arrhythmia/Palpitations General Chief Complaint: Arrhythmia/Palpitations Stated Complaint: tachycardic Time Seen by Provider: 05/09/22 16:00 History of Present Illness HPI narrative: Patient is a 31-year-old female presenting with tachycardia. Patient states that she first noticed her heart was racing approximately 6 days ago. States that she has an apple watch and her heart rate was in the 180s. States that she sat down and her heart rate improved but states that she remained in the 120s to 130s over the next several days. Today she went into see her PCP and was noted to be again tachycardic in the 180s to 200. Patient states that she does feel short of breath but she denies lightheadedness. States that sometimes she has pain in her chest that she attributes to musculoskeletal pain. States that her heart rate is always fast but it is usually in the 110s. She denies recent fevers, headache, cough, abdominal pain, nausea or vomiting, diarrhea, leg swelling. Patient states that she is approximately 4 weeks . Related Data Home Medications Medication Instructions Recorded Confirmed buspirone 10 mg tablet 10 mg PO BID 04/26/22 05/10/22 Allergies Allergy/AdvReac Type Severity Reaction Status Date / Time Penicillins Allergy Severe Hives Verified 05/10/22 00:43 amoxicillin Allergy Intermediate Hives Verified 05/10/22 00:44 Review of Systems Review of Systems: All systems reviewed & are unremarkable except as noted in HPI and below PMFSH Past Medical History Medical History Healthy female adult Surgical History Surgical History History of section Family History Family History Sibling Graves disease Alex's disease Grandparent Heart disease Hypertension Father Asthma Mother Hypertension Other Unknown family medical history Social History Social History Smoking status: Never smoker Second hand tobacco smoke exposure: Yes Alcohol intake: never Substance use: never Substance use type: does not use Lack of Transportation: No Lack of Food: Never True Current Housing: I Have Housing Concerned About Future Housing: No Difficulty Paying Gas/Electric Bills: No Difficulty Paying for Meds: No Currently Unemployed: No Education: Grade School Difficulty w/ Childcare or Family Care: No 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 HEAD: Normocephalic, atraumatic. EYES: PERRLA and EOMI. ENT: Nares clear, no rhinorrhea or epistaxis. Mucous membranes moist. NECK: Supple. CHEST: Clear to auscultation. No respiratory distress. HEART: Tachycardic, regular rhythm. No murmur heard. Normal peripheral pulses. ABDOMEN: Soft, nontender, nondistended, normal active bowel sounds. EXTREMITIES: Normal range of motion. No edema. SKIN: Warm, dry, no rash. NEURO: No focal deficits. Alert and oriented x3. PSYCH: Normal mood and affect. Course Vital Signs Vital signs: Vital Signs Temperature 98.2 F 05/09/22 15:43 Pulse Rate 145 H 05/09/22 15:43 Respiratory Rate 18 05/09/22 15:43 Blood Pressure 138/76 05/09/22 15:43 Pulse Oximetry 100 05/09/22 15:43 Temperature 98.7 F 05/10/22 13:48 Pulse Rate 114 H 05/10/22 16:00 Respiratory Rate 18 05/10/22 13:48 Blood Pressure 122/83 05/10/22 13:48 Pulse Oximetry 100 05/10/22 13:48 Oxygen Delivery Room Air 05/10/22 09:30 MDM - Arrhythmia/Palpitations MDM Narrative Medical decision making narrative: Patient is a 31-year-old female presenting with tachycardia. Patient is tachycardic in the 140s. Normotensive and saturating 100% on room ai
[2022-05-09] MEDS: SODIUM CHLORIDE 0.9% IV 1,000 ML 999 ML IV CONT (16:34)
[2022-05-09 16:58] LABS: Troponin I < 0.012 ng/mL (0.000-0.034)
[2022-05-09 17:02] LABS: Beta HCG Quantitative 620.65 mIU/ML
[2022-05-09 17:18] LABS: Appearance Urine Slightly Cloudy (Clear); Bilirubin Urine 1+ (Negative); Blood Urine Trace-lysed (Negative); Color Urine Yellow (Yellow); Glucose Urine UA Negative (Negative); Ketones Urine 4+ mg/dL (Negative); Leukocyte Esterase Ur Negative LEU/UL (Negative); Nitrate Urine Negative (Negative); Protein Urine Negative (Negative); Specific Grav Ur >= 1.030 (1.001-1.035); Urobilinogen Urine 0.2 mg/dL (<2.0)
[2022-05-09 17:21] LABS: Mucus Urine Heavy /lpf; RBC Urine 0-2 /hpf (0-2); Squamous Epithelial Cell Urine Few /hpf (Few); WBC Urine 0-3 /hpf
[2022-05-09 17:28] LABS: Add Urine Microscopic? YES
[2022-05-09 17:29] LABS: Thyroid Stimulating Hormone Reflex < 0.015 uIU/mL (0.465-4.68)
[2022-05-09 18:03] LABS: D Dimer 0.48 ug/mL (<0.48)
[2022-05-09 18:27] LABS: Free T4 Free Thyroxine Reflex 3.94 ng/dL (0.78-2.19)
--- NOTE | 2022-05-09 20:08 | PM.IMHP ---
H&P: HPI History of Present Illness Date/Time: 05/09/22 20:08 Chief Complaint: Palpitations Narrative: This is a 31-year-old female with no significant past medical history, patient presents to the emergency room after she was sent out from her primary care physician's office after obtaining lab work that was consistent with hyperthyroidism patient had been in to see his primary care physician due to palpitations her Apple watch showed a heart rate in the 180's. patient also has had shortness of breath with it feeling very fatigue and tired at times. patient is currently 4 weeks as well. Patient denies any leg swelling, PND, orthopnea. patient is been admitted for further evaluation management and treatment. Review of Systems Review of Systems: Palpitations, shortness of breath, fatigue. Constitutional: Constitutional: Denies chills, Reports fatigue, Denies fever(s), Denies malaise, Denies night sweats, Denies poor appetite and Denies weakness Eyes: Eyes: Denies change in vision ENT: Denies dysphagia, Denies vertigo, Denies dizziness and Denies odynophagia Cardiovascular: Cardiovascular: Denies chest pain, Denies leg edema, Reports palpitations and Reports dyspnea on exertion Respiratory: Respiratory: Denies chest congestion, Denies cough, Denies excessive phlegm production, Denies pain on inspiration and Denies wheezing Gastrointestinal: Gastrointestinal: Denies abdominal pain, Denies dyspepsia, Denies heartburn, Denies diarrhea, Denies nausea and Denies vomiting Genitourinary: Genitourinary: Denies dysuria Musculoskeletal: Musculoskeletal: Denies back pain, Denies myalgias, Denies joint swelling and Denies muscle weakness Integumentary/Breasts: Skin/Breast: Denies rash Neurologic: Denies vertigo, Denies dizziness, Denies focal weakness and Denies Sensory deficit (Neuro) Psychiatric: Psychiatric: Reports no additional psychiatric complaints and Reports as per HPI Endocrine: Endocrine: Denies cold intolerance, Reports fatigue, Denies flushing, Denies heat intolerance, Denies polyphagia, Denies polydipsia and Reports palpitations Hematologic/Lymphatic: Hematologic/Lymphatic: Reports no additional hematologic/lymphatic complaints and Reports as per HPI Allergic/Immunologic: Allergic/Immunologic: Reports no additional allergic/immunologic complaints and Reports as per HPI [facility] Past Medical History Medical History Healthy female adult Surgical History Surgical History History of section Family History Family History Sibling Graves disease Alex's disease Grandparent Heart disease Hypertension Father Asthma Mother Hypertension Other Unknown family medical history Social History Social History Smoking status: Never smoker Alcohol intake: never Substance use: never 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 Spiritual care concerns: No Meds Home Medications and Allergies Home Medications Medication Instructions Recorded Confirmed Type hydrocodone 5 mg-acetaminophen 325 1 tablet PO Q6H PRN pain #14 tabs 04/22/22 05/02/22 Rx mg tablet buspirone 10 mg tablet 10 mg PO BID 04/26/22 05/02/22 History buspirone 10 mg tablet 10 mg PO BID 05/09/22 05/09/22 History Allergies Allergy/AdvReac Type Severity Reaction Status Date / Time amoxicillin Allergy Severe Respiratory Verified 05/02/22 07:55 Distress Penicillins Allergy Severe Respiratory Verified 05/02/22 07:55 Distress Vital Signs Vital Signs - 24 hr 05/09/22 15:43 05/09/22 17:00 05/09/22 18:09 Temperature 98.2 F Pulse Rate 145 H 138 H 128 H Respiratory Rate 18 18 Blood Pressure 138/76 126/77 Pulse Oximetry 100 99 05/09/22 18:09 05/09/22 19
[2022-05-09] MEDS: methylPREDNISolone SOD SUCC 125 MG VIAL IV PUSH (20:22)
[2022-05-09 21:59] LABS: Influenza A QL RT-PCR Negative (Negative); Influenza B QL RT-PCR Negative (Negative); SARS-CoV-2 RNA PCR Negative
[2022-05-10] VITALS (12 sets, daily range): BP systolic 111–123; BP diastolic 53–83; PULSE 97–138; RESP 16–21; TEMP 35.9–37.1; O2SAT 99–100; BMI 18.8
--- NOTE | 2022-05-10 | ECHO_ITS ---
Patient Info Name: Janene Bihsop Age: 31 years : 1990 Gender: Female Ht: 61 in Wt: 105 lbs BSA: 1.43 m2 HR: 107 bpm BP: 123 / 53 mmHg Technical Quality: Good Exam Date: 05/10/2022 10:35 AM Exam Location: [facility] Exam Room: [facility] Patient Status: Inpatient Admit Date: 05/09/2022 Staff Ordering Physician: Jose Gomez MD Pot Press Operator: Shoshana Palacios RCS Attending Provider: Agustin Alas MD Referring Physician: Jason GARCÍA; Exam Type: CA echo doppler color flow Study Info Indications - tachycardia hyperthyroid Complete two-dimensional, color flow and Doppler transthoracic echocardiogram is performed. Summary 1. Complete two-dimensional, color flow and Doppler transthoracic echocardiogram is performed. 2. Left ventricular chamber dimension is normal. 3. Left ventricular systolic function is normal, estimated at 65-70%. 4. The left ventricular diastolic function is normal. 5. E/e' 7 is not elevated. 6. No pulmonary hypertension, estimated pulmonary arterial systolic pressure is 14 mmHg. Left Ventricle E/e' 7 is not elevated. Left ventricular chamber dimension is normal. Left ventricular systolic function is normal, estimated at 65-70%. The left ventricular diastolic function is normal. Right Ventricle Right ventricular chamber dimension is normal. Right ventricular systolic function is normal. Left Atria Left atrial chamber dimension is normal. Right Atria Right atrial chamber dimension is normal. Aortic Valve The aortic valve is trileaflet. There is no aortic valve stenosis. There is no aortic valve regurgitation. Pulmonic Valve There is no pulmonic regurgitation. Mitral Valve There is no mitral valve stenosis. There is no mitral valve regurgitation. Tricuspid Valve There is no tricuspid valve regurgitation. No pulmonary hypertension, estimated pulmonary arterial systolic pressure is 14 mmHg. Pericardium/Pleural There is no pericardial effusion. Inferior Vena Cava Normal inferior vena cava with >50% collapse upon inspiration consistent with normal right atrial pressure, 5 mmHg. Aorta The aortic root size at the sinus of Valsalva is normal. Left Ventricular Outflow Tract Name Value Normal LVOT 2D LVOT Diameter 2.0 cm LVOT Doppler LVOT Peak Gradient 8 mmHg LVOT Mean Gradient 5 mmHg LVOT VTI 25 cm LVOT VTI/AV VTI Ratio 1.0 LVOT Stroke Volume 75 ml LVOT CO 19.1 l/min LVOT CI 13.3 l/min/m2 Pulmonic Valve Name Value Normal PV Doppler PV Peak Gradient 5 mmHg Mitral Valve
[2022-05-10] MEDS: PROPRANOLOL HCL 40 MG TABLET PO ×3 (00:20→22:02)
--- NOTE | 2022-05-10 00:46 | ADMGEN ---
This patient, Janene Bishop, was admitted to 3 [facility] Surg Room 315-01. Patient/family oriented to hospital policies and general routines including ID bracelet, bed and alarms, visiting hours, pain management, procedures, bathroom and other care routines, personal items, smoking policy, room service/diet, and visiting hours. Information on how to activate the Rapid Response Team has been discussed. Patient/Family are encouraged to report perceived risks to care and to ask questions if they do not understand what they are told or what they should do.
[2022-05-10] MEDS: methylPREDNISolone SOD SUCC 40 MG VIAL IV PUSH ×3 (06:41→17:31)
--- NOTE | 2022-05-10 09:43 | PC.NURSE ---
Addendum entered by Angelina Singleton RN 05/10/22 10:23: stated to hold medication for now, will look into it when he arrives at the hospital. Original Note: Spoke with Dr Alas about the medication Tapazole ordered for patient and warning states to not give in .
--- NOTE | 2022-05-10 15:31 | PM.IMPN ---
Progress Note: A&P Assessment and Plan (1) Thyrotoxicosis due to Graves' disease: Code(s): E05.00 - Thyrotoxicosis with diffuse goiter without thyrotoxic crisis or storm Status: Acute Assessment and Plan: Will start on propylthiouracil. Methimazole is contraindicated in started on propranolol systemic steroids follow-up with endocrinology in outpatient setting Will get thyroid ultrasound (2) : Code(s): Z34.90 - Encounter for supervision of normal , unspecified, unspecified trimester Status: Acute Assessment and Plan: patient is currently 4 weeks Subjective Date/time seen: 05/10/22 15:31 Patient appears anxious. No other issues at this time Review of Systems Review of Systems: Palpitations, shortness of breath, fatigue. Constitutional: Constitutional: Denies chills, Reports fatigue, Denies fever(s), Denies malaise, Denies night sweats, Denies poor appetite and Denies weakness Eyes: Eyes: Denies change in vision ENT: Denies dysphagia, Denies vertigo, Denies dizziness and Denies odynophagia Cardiovascular: Cardiovascular: Denies chest pain, Denies leg edema, Reports palpitations and Reports dyspnea on exertion Respiratory: Respiratory: Denies chest congestion, Denies cough, Denies excessive phlegm production, Denies pain on inspiration and Denies wheezing Gastrointestinal: Gastrointestinal: Denies abdominal pain, Denies dyspepsia, Denies heartburn, Denies diarrhea, Denies nausea and Denies vomiting Genitourinary: Genitourinary: Denies dysuria Musculoskeletal: Musculoskeletal: Denies back pain, Denies myalgias, Denies joint swelling and Denies muscle weakness Integumentary/Breasts: Skin/Breast: Denies rash Neurologic: Denies vertigo, Denies dizziness, Denies focal weakness and Denies Sensory deficit (Neuro) Psychiatric: Psychiatric: Reports no additional psychiatric complaints and Reports as per HPI Endocrine: Endocrine: Denies cold intolerance, Reports fatigue, Denies flushing, Denies heat intolerance, Denies polyphagia, Denies polydipsia and Reports palpitations Hematologic/Lymphatic: Hematologic/Lymphatic: Reports no additional hematologic/lymphatic complaints and Reports as per HPI Allergic/Immunologic: Allergic/Immunologic: Reports no additional allergic/immunologic complaints and Reports as per HPI Exam Narrative: patient is laying in a stretcher Const: General: comfortable, no acute distress, well developed, alert, awake and average body habitus Nutritional Appearance: thin Orientation/consciousness: patient oriented x3 HENMT: Head: normal to inspection, normocephalic and atraumatic Ears: hearing grossly normal bilaterally Face/Nose/Sinus: normal facial exam Face and sinus: normal facial exam Eyes: General: appearance normal, both eyes and all related structures Pupils: Equal, round and reactive pupils present EOM: EOMs intact bilaterally Neck: Neck: full ROM, no lymphadenopathy and no JVD Thyroid: thyroid normal Lymphatic: no lymphadenopathy noted Resp: Effort & Inspection: normal respiratory effort and able to speak in complete sentences Auscultation: clear to auscultation bilaterally Cardio: Jugular venous distension: no JVD Rate: tachycardic Rhythm: regular rhythm Heart sounds: S1 normal heart sound present and S2 normal heart sound present GI: Inspection: normal to inspection GI Palp: Yes Soft to palpation and Yes No hepatosplenomegaly present : General: Yes deferred Skin: Rashes: no rashes Wounds: no wounds Neuro: General: patient oriented x3 and CN's II-XI intact bilaterally Cranial nerves: Yes CN's II-XII intact bilaterally and Yes Equal, round and reactive pupils present Cognition (Neuro): normal cognition Speech: normal speech Gait exam (Neuro): Unable to assess gait Motor exam (neuro): 5/5 motor strength present throughout Extrem: General: normal to inspection, full ROM, no joint enlargement a
[2022-05-10] MEDS: propylthiouraciL 50 MG TABLET 300 MG PO ×2 (17:31→22:02)
[2022-05-11] MEDS: methylPREDNISolone SOD SUCC 40 MG VIAL IV PUSH ×2 (00:17→06:31)
[2022-05-11] MEDS: busPIRone HCL 10 MG TABLET PO ×2 (00:18→08:14)
[2022-05-11 05:29] VITALS: BP 103/61; PULSE 85; RESP 16; TEMP 36.1; O2SAT 98
[2022-05-11] MEDS: propylthiouraciL 50 MG TABLET 300 MG PO (06:31)
[2022-05-11 08:00] VITALS: PULSE 102
[2022-05-11 08:14] VITALS: PULSE 112
[2022-05-11] MEDS: PROPRANOLOL HCL 40 MG TABLET PO (08:14)
--- NOTE | 2022-05-11 10:04 | PM.DS ---
DS: Admitting Diagnosis Discharge Date 05/11/2022 Admitting Diagnosis Hyperthyroidism DS: Discharge Diagnosis Discharge Diagnosis (1) Thyrotoxicosis: Code(s): E05.90 - Thyrotoxicosis, unspecified without thyrotoxic crisis or storm Status: Acute (2) : Code(s): Z34.90 - Encounter for supervision of normal , unspecified, unspecified trimester Status: Acute DS: Summary Hospital Course Hospital Course: This is a 31-year-old female with no significant past medical history, patient presents to the emergency room after she was sent out from her primary care physician's office after obtaining lab work that was consistent with hyperthyroidism patient had been in to see his primary care physician due to palpitations her Apple watch showed a heart rate in the 180's.? patient also has had shortness of breath with it feeling very fatigue and tired at times. patient is currently 4 weeks as well.? Patient was started on Ultmann open wound along with IV steroids. She was started on propylthiouracil. She cannot get methimazole because she is . Patient's heart rate has been well controlled here. She is currently stable. Thyroid ultrasound showed . Heterogeneous, hypervascular thyroid, consistent with chronic lymphocytic (Alex) thyroiditis versus Graves' disease. Patient is clinically stable and has been discharged home. Patient advised to follow-up with endocrinology as outpatient Time Spent with Patient Time attestation: Total time spent providing and/or coordinating discharge services: Exam Const: General: comfortable, no acute distress, well developed, alert, awake and average body habitus Nutritional Appearance: thin Orientation/consciousness: patient oriented x3 HENMT: Head: normal to inspection, normocephalic and atraumatic Ears: hearing grossly normal bilaterally Face/Nose/Sinus: normal facial exam Face and sinus: normal facial exam Eyes: General: appearance normal, both eyes and all related structures Pupils: Equal, round and reactive pupils present EOM: EOMs intact bilaterally Neck: Neck: full ROM, no lymphadenopathy and no JVD Thyroid: thyroid normal Lymphatic: no lymphadenopathy noted Resp: Effort & Inspection: normal respiratory effort and able to speak in complete sentences Auscultation: clear to auscultation bilaterally Cardio: Jugular venous distension: no JVD Rate: tachycardic Rhythm: regular rhythm Heart sounds: S1 normal heart sound present and S2 normal heart sound present GI: Inspection: normal to inspection GI Palp: Yes Soft to palpation and Yes No hepatosplenomegaly present : General: Yes deferred Skin: Rashes: no rashes Wounds: no wounds Neuro: General: patient oriented x3 and CN's II-XI intact bilaterally Cranial nerves: Yes CN's II-XII intact bilaterally and Yes Equal, round and reactive pupils present Cognition (Neuro): normal cognition Speech: normal speech Gait exam (Neuro): Unable to assess gait Motor exam (neuro): 5/5 motor strength present throughout Extrem: General: normal to inspection, full ROM, no joint enlargement and no pedal edema Other: right ankle fracture brace in place Discharge Plan Discharge Discharging Clinician: Agustin Alas Anticipated Discharge Date/Time: 05/11/22 09:38 Patient Disposition: Home, Self-Care Activity: october shower Diet: regular Patient Instructions: Antibiotic Form Stand Alone Forms: General Discharge Information Follow-up/Referrals: Mecca,Jen Iverson, [place] [Primary Care Provider] - Discharge Medications: New propranolol 40 mg Tablet 40 mg PO Q12HR Qty: 30 0RF propylthiouracil 50 mg Tablet 300 mg PO Q8HR 30 Days Qty: 540 0RF Continued buspirone 10 mg tablet 10 mg PO BID Date of admission: 05/09/22 19:41 Primary Care Provider: MeccaJen Admitting Provider: Jose Gomez V. Attending physician on admission: Agustin Alas
[2022-05-11 12:00] VITALS: PULSE 87
== END 2022-05-11 12:50 | disposition home or self-care (01) ==
LOC: ANHED 16:12 → ANH3MEDSUR 22:07
PROVIDERS: Emergency Medicine; Admitting Provider Internal Medicine; Emergency Provider Emergency Medicine; PCP Nurse Practitioner Family; Visit Provider Hospitalist
DX: O26.891 Other specified pregnancy related conditions, first trimester (principal); E05.90 Thyrotoxicosis, unspecified without thyrotoxic crisis or storm; R06.02 Shortness of breath; R94.31 Abnormal electrocardiogram [ECG] [EKG]; Z3A.01 Less than 8 weeks gestation of pregnancy; Z82.49 Family history of ischemic heart disease and other diseases of the circulatory system; Z82.5 Family history of asthma and other chronic lower respiratory diseases; Z79.891 Long term (current) use of opiate analgesic; Z79.899 Other long term (current) drug therapy; Z20.822 Contact with and (suspected) exposure to COVID-19
CPT/HCPCS: 36415; 71045; 76536; 80053; 81001; 84439; 84443; 84484; 84702; 85025; 85380; 86900; 86901; 87636; 93005; 93306; 96361; 96374; 96376; 99285; A9270; G0378; G0379; J2920; J2930; J7030

== ENCOUNTER 2022-05-20 13:14 | Emergency (ER) | payer OTHER, SELFPAY ==
[2022-05-20 13:29] VITALS: BP 124/62; PULSE 90; RESP 18; TEMP 36.9; O2SAT 100
--- NOTE | 2022-05-20 14:29 | ED.ALLEREA ---
HPI - Allergic Reaction General Chief complaint: Allergic Reaction Stated complaint: rash, Propylthiouracil new med Time Seen by Provider: 05/20/22 13:24 History of Present Illness HPI narrative: 31-year-old female recently diagnosed with hyperthyroidism/Graves' disease presents to the emergency room for evaluation of a pruritic rash body aches. Patient states she recently started taking PTU and propranolol. Noticed that she developed a rash in her chest and back yesterday and that is pruritic. Took Benadryl once. Denies any shortness of breath occultly breathing. Also complaining of generalized fatigue and body aches. Denies any shortness of breath, difficulty breathing swallowing. Denies chest pain. States that she has appointment with her biologist aide on Saturday. Related Data Home Medications Medication Instructions Recorded Confirmed buspirone 10 mg tablet 10 mg PO BID 04/26/22 05/10/22 Allergies Allergy/AdvReac Type Severity Reaction Status Date / Time Penicillins Allergy Severe Hives Verified 05/20/22 13:18 amoxicillin Allergy Intermediate Hives Verified 05/20/22 13:18 Review of Systems Review of Systems: CONSTITUTIONAL: Denies fever, chills, or sweats. EYES: Denies visual changes, redness, or discharge. ENT: Denies rhinorrhea, congestion, sore throat, or otalgia. CARDIOVASCULAR: Denies chest pain, palpitations, or edema. RESPIRATORY: Denies cough or dyspnea. GASTROINTESTINAL: Denies abdominal pain, nausea, vomiting, or diarrhea. GENITOURINARY: Denies dysuria or hematuria. SKIN: Reports rash MUSCULOSKELETAL: Reports body aches NEUROLOGIC: Denies headache, numbness, dizziness, or weakness. PSYCHIATRIC: Denies anxiety or depression. [facility] Past Medical History Medical History Healthy female adult Surgical History Surgical History History of section Family History Family History Sibling Graves disease Alex's disease Grandparent Heart disease Hypertension Father Asthma Mother Hypertension Other Unknown family medical history Social History Social History Smoking status: Never smoker Second hand tobacco smoke exposure: Yes Alcohol intake: never Substance use: never Substance use type: does not use Lack of Transportation: No Lack of Food: Never True Current Housing: I Have Housing Concerned About Future Housing: No Difficulty Paying Gas/Electric Bills: No Difficulty Paying for Meds: No Currently Unemployed: No Education: Grade School Difficulty w/ Childcare or Family Care: No 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 HEAD: Normocephalic, atraumatic. EYES: Conjunctivae normal, PERRLA and EOMI. NECK: Supple.No carotid bruits or JVD CHEST: Clear to auscultation. No respiratory distress. No wheezes rales or rhonchi. HEART: Regular rate and rhythm. No murmur heard. Normal peripheral pulses. EXTREMITIES: Normal range of motion. No edema. No clubbing or cyanosis SKIN: Fine, diffuse, pruritic erythematous maculopapular rash distributed over the anterior posterior torso and face NEURO: No focal deficits. Alert and oriented x3. MAEW. CN's II-XI intact bilaterally, normal gait PSYCH: Cooperative. Normal mood and affect. Course Vital Signs Vital signs: Vital Signs Temperature 36.9 C 05/20/22 13:29 Pulse Rate 90 05/20/22 13:29 Respiratory Rate 18 05/20/22 13:29 Blood Pressure 124/62 05/20/22 13:29 Pulse Oximetry 100 05/20/22 13:29 Oxygen Delivery Room Air 05/20/22 13:29 Temperature 36.9 C 05/20/22 13:29 Pulse Rate 90 05/20/22 13:29 Respiratory R
[2022-05-20 14:40] LABS: Basophils Percent Auto 0.2 % (0.2-1.2); Eosinophils Absolute Auto 0.2 K/mm3 (0-0.3); Eosinophils Percent Auto 4.5 % (0-4.4); Hematocrit 39.9 % (37.0-47.0); Hemoglobin 13.1 g/dL (12.0-15.0); Immature Granulocyte Absolute 0.03 K/mm3 (0.00-0.031); Immature Granulocyte Percent A 0.7 % (0-0.5); Lymphocytes Absolute Auto 0.57 K/mm3 (0.9-3.2); Lymphocytes Percent Auto 13.4 % (18.3-44.2); Mean Corpuscular HGB Conc 32.8 g/dl (32-36); Mean Corpuscular Hemoglobin 29.6 pg (26-34); Mean Corpuscular Volume 90.1 fl (80-100); Mean Platelet Volume 10.1 fl (7.4-10.4); Monocytes Absolute Auto 0.4 K/mm3 (0.1-0.6); Monocytes Percent Auto 9.6 % (2.6-8.5); Neutrophils Absolute Auto 3.1 K/mm3 (1.3-6.7); Neutrophils Percent Auto 71.6 % (45.5-73.1); Platelet Count Result 201 k/mm3 (150-375); Red Blood Count 4.43 M/mm3 (4.2-5.4); Red Cell Distribution Width 11.8 % (11.5-14.5); White Blood Count 4.3 K/mm3 (4.5-10.0)
[2022-05-20 14:53] LABS: Alanine Aminotransferase 20 U/L (6-35); Albumin Level 4.5 g/dL (3.5-5.1); Alkaline Phosphatase 44 U/L (38-126); Anion Gap 10 mmol/L (8-16); Aspartate Amino Transferase 29 U/L (14-36); Bilirubin,Total 0.8 mg/dL (0.2-1.3); Blood Urea Nitrogen 11 mg/dL (7-17); Calcium 9.3 mg/dL (8.4-10.2); Carbon Dioxide 21 mmol/L (22-30); Chloride 106 mmol/L (98-107); Estimated CRCL calculation 97 ml/min; Estimated Glomerular Filt Rate > 60; Glucose 97 mg/dL (65-110); Potassium 4.2 mmol/L (3.4-5.0); Sodium 137 mmol/L (137-145)
== END 2022-05-20 15:38 | disposition home or self-care (01) ==
PROVIDERS: Emergency Provider Nurse Practitioner Family; PCP Nurse Practitioner Family
DX: L27.0 Generalized skin eruption due to drugs and medicaments taken internally (principal); T50.905A Adverse effect of unspecified drugs, medicaments and biological substances, initial encounter; E05.00 Thyrotoxicosis with diffuse goiter without thyrotoxic crisis or storm
CPT/HCPCS: 36415; 80053; 85025; 96372; 99283; J1100

== ENCOUNTER 2022-10-27 08:59 | Outpatient (RCR) | payer OTHER, SELFPAY ==
[2022-10-24 15:26] LABS: Basophils Percent Auto 0.4 % (0.2-1.2); Eosinophils Absolute Auto 0.2 K/mm3 (0-0.3); Eosinophils Percent Auto 1.8 % (0-4.4); Hematocrit 28.4 % (37.0-47.0); Hemoglobin 9.8 g/dL (12.0-15.0); Immature Granulocyte Absolute 0.07 K/mm3 (0.00-0.031); Immature Granulocyte Percent A 0.9 % (0-0.5); Lymphocytes Absolute Auto 1.27 K/mm3 (0.9-3.2); Lymphocytes Percent Auto 15.5 % (18.3-44.2); Mean Corpuscular HGB Conc 34.5 g/dl (32-36); Mean Corpuscular Hemoglobin 33.7 pg (26-34); Mean Corpuscular Volume 97.6 fl (80-100); Mean Platelet Volume 9.5 fl (7.4-10.4); Monocytes Absolute Auto 0.6 K/mm3 (0.1-0.6); Monocytes Percent Auto 7.1 % (2.6-8.5); Neutrophils Absolute Auto 6.1 K/mm3 (1.3-6.7); Neutrophils Percent Auto 74.3 % (45.5-73.1); Platelet Count Result 193 k/mm3 (150-375); Red Blood Count 2.91 M/mm3 (4.2-5.4); Red Cell Distribution Width 13.2 % (11.5-14.5); White Blood Count 8.2 K/mm3 (4.5-10.0)
[2022-10-24 15:42] LABS: Glucose 1 Hour PP 50gm Dose 70 mg/dL
[2022-10-24 16:19] LABS: HIV 1/2 Ab P24 Ag Result Negative (Negative)
[2022-10-27] MEDS: RHO(D) IMMUNE GLOBULIN 300 MCG/2 ML SYRINGE IM (10:47)
== END 2022-10-27 09:00 | disposition home or self-care (01) ==
LOC: ANHLAB 08:59
PROVIDERS: PCP Nurse Practitioner Family; Visit Provider Obstetrics & Gynecology
DX: Z11.4 Encounter for screening for human immunodeficiency virus [HIV] (principal); Z29.13 Encounter for prophylactic Rho(D) immune globulin; O36.0190 Maternal care for anti-D [Rh] antibodies, unspecified trimester, not applicable or unspecified; Z3A.00 Weeks of gestation of pregnancy not specified
CPT/HCPCS: 36415; 82947; 85025; 85461; 86703; 86850; 86900; 86901; 90384; 96372; G0432; J2790

== ENCOUNTER 2022-11-10 14:19 | Observation (INO) | payer OTHER, SELFPAY ==
[2022-11-10 14:45] VITALS: BP 106/66; PULSE 90
[2022-11-10 15:00] VITALS: BP 112/62; PULSE 83
[2022-11-10 15:15] VITALS: BP 106/60; PULSE 84
[2022-11-10 15:31] LABS: Appearance Urine Clear (Clear); Bilirubin Urine Negative (Negative); Blood Urine Negative (Negative); Color Urine Yellow (Yellow); Glucose Urine UA Negative (Negative); Ketones Urine Trace mg/dL (Negative); Leukocyte Esterase Ur Negative LEU/UL (NEGATIVE); Nitrate Urine Negative (Negative); Protein Urine Negative (Negative); Urobilinogen Urine 0.2 mg/dL (<2.0); pH Urine 5.5 (5.0-9.0)
[2022-11-10 15:39] LABS: Add Urine Microscopic? NO
--- NOTE | 2022-11-10 16:30 | PC.NURSE ---
Patient taking PO fluids, tolerating well. States that she is feeling a little better. No vomiting noted.
--- NOTE | 2022-11-10 16:38 | PC.NURSE ---
Dr Snyder notified of adm c/o, no contractions noted or palpated and UA results. Ok to dc home and encourage PO fluids as tolerated.
--- NOTE | 2022-11-13 07:26 | PM.OBTRLD ---
OB - Triage/Final Diagnosis Visit Information Reason for evaluation: other ( nausea with vomiting; cramping) Comments/Additional reasons for admission: I have assessed the risk for this patient, Janenekristopher Bishop, and determined that she would benefit from observation care. Evaluation Laboratory results: Laboratory Tests 11/10/22 15:03 Urine Color Yellow Urine Appearance Clear Urine pH 5.5 Ur Specific Theodore 1.020 Urine Protein Negative Urine Glucose (UA) Negative Urine Ketones Trace H Ur Blood (Man) Negative Urine Nitrate Negative Urine Bilirubin Negative Urine Urobilinogen 0.2 Ur Leukocyte Esterase Negative
== END 2022-11-10 16:56 | disposition home or self-care (01) ==
PROVIDERS: Admitting Provider Obstetrics & Gynecology Gynecology; PCP Nurse Practitioner Family; Visit Provider Obstetrics & Gynecology Gynecology
DX: O21.2 Late vomiting of pregnancy (principal); O26.893 Other specified pregnancy related conditions, third trimester; R10.9 Unspecified abdominal pain; Z3A.31 31 weeks gestation of pregnancy
CPT/HCPCS: 81003; 87086; G0378; G0379

== ENCOUNTER 2022-11-12 04:05 | Observation (INO) | payer OTHER, SELFPAY ==
[2022-11-12] VITALS (82 sets, daily range): BP systolic 74–128; BP diastolic 53–72; PULSE 28–151; TEMP 36.6; O2SAT 73–100; BMI 23.3
--- NOTE | ~2022-11-12 | US_ITS ---
EXAMINATION: US OB limited w BPP DATE: 11/12/2022 09:42 INDICATION: Vaginal bleeding. Third trimester. TECHNIQUE: Real-time pelvic ultrasound was performed. COMPARISON: Ultrasound 06/22/2022 FINDINGS: There is a single living fetus in vertex presentation. The placenta is posterior and covers the inte rnal cervical os. heart rate is 135 beats per minute (bpm). Biophysical profile performed by the technologist: breathing (30 sec sustained breathing in 30 minutes): 2 out of 2 movement (3 gross body movements in 30 minutes): 2 out of 2 tone (one episode of fqegqpo-qbqjzzkbe-kglpbsi limb movement): 2 out of 2 Amniotic fluid pocket (2 cm): 2 out of 2 Total score: 8 out of 8 IMPRESSION: 1. Single living fetus in vertex presentation. 2. Biophysical profile 8 out of 8. 3. Placenta previa. Reviewed, dictated and finalized at location A.
--- NOTE | 2022-11-12 04:20 | OBADM ---
This patient, Janene Bishop, admitted to the OB room OB Post 117 for observation. Patient/family oriented to hospital policies and general routines including ID bracelet, bed and alarms, visiting hours, pain management, procedures, bathroom and other care routines, personal items, smoking policy, room service/diet, and visiting hours. Patient/Family are encouraged to report perceived risks to care and to ask questions if they do not understand what they are told or what they should do.
--- NOTE | 2022-11-12 04:46 | PM.IMHP ---
H&P: HPI History of Present Illness Date/Time: 11/12/22 04:46 Chief Complaint: Bleeding Narrative: She is a at 30 weeks with known posterior placenta previa. Presented today with bleeding at 3pm. She has been on pelvic rest. Occasional BH. On L and D uterine irritability, initially, then improved, reassuring heart rate tracing. She also has been nauseous. She has been on pelvic rest. PNC significant for the previa and graves dz and two prior sections. [facility] Past Medical History Medical History Anxiety Healthy female adult Hyperlipidemia Suppression of menses Thyroid disease Surgical History Surgical History History of section Family History Family History Sibling Graves disease Alex's disease Grandparent Heart disease Hypertension Father Asthma Mother Hypertension Other Unknown family medical history Social History Social History Smoking status: Never smoker Second hand tobacco smoke exposure: Yes Alcohol intake: never Substance use: never Substance use type: does not use Lack of Transportation: No Lack of Food: Never True Current Housing: I Have Housing Concerned About Future Housing: No Difficulty Paying Gas/Electric Bills: No Difficulty Paying for Meds: No Currently Unemployed: No Education: High School Diploma/GED Difficulty w/ Childcare or Family Care: No Living arrangements: other Additional living arrangements comments: Occupation/Education: 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 Gender identity (if verbalized by the patient): Female Sexual Orientation (if Verbalized by the Patient): Straight or Heterosexual Spiritual care concerns: No Meds Home Medications and Allergies Home Medications Medication Instructions Recorded Confirmed Type buspirone 10 mg tablet 10 mg PO BID 04/26/22 11/07/22 History labetalol 100 mg tablet 100 mg PO Q12H 05/29/22 11/07/22 History propylthiouracil 50 mg tablet 50 mg PO Q8HR 07/24/22 11/07/22 History Allergies Allergy/AdvReac Type Severity Reaction Status Date / Time Penicillins Allergy Severe Hives Verified 11/07/22 09:56 amoxicillin Allergy Intermediate Hives Verified 11/07/22 09:56 Vital Signs Vital Signs - 24 hr 11/12/22 04:14 11/12/22 04:17 11/12/22 04:22 Pulse Rate 102 H Blood Pressure 127/64 Pulse Oximetry 99 100 11/12/22 04:27 11/12/22 04:30 11/12/22 04:32 Pulse Rate 102 H Blood Pressure 112/56 L Pulse Oximetry 98 99 11/12/22 04:37 11/12/22 04:42 11/12/22 04:45 Pulse Rate 109 H Blood Pressure 128/72 Pulse Oximetry 99 99 Exam Const: General: comfortable and no acute distress Eyes: General: appearance normal, both eyes and all related structures Resp: Effort & Inspection: normal respiratory effort Auscultation: clear to auscultation bilaterally Cardio: Rate: tachycardic Rhythm: regular rhythm GI: Inspection: normal to inspection Other: gravid nontender : External Female Exam: normal external appearance Other: sterile speculum performed, large clot posterior vagina, speculum was removed and clot came out, speculum reinserted and cervix visualized no active bleeding or visual dilation of cervix Neuro: General: oriented to person, oriented to place and oriented to time Assessment and Plan Assessment and plan (1) Antepartum bleeding, third trimester: Code(s): O46.93 - Antepartum hemorrhage, unspecified, third trimester Status: Acute Assessment and Plan: Admit for observation. labs Betamethasone (2) Placenta previa: Code(s): O44.00 - Complete placenta previa NOS or without hemorrhage, unspecified trimester St
--- NOTE | 2022-11-12 04:50 | PC.NURSE ---
Dr. Aaron here. Exam done. Speculum exam done. Bleeding noted and approx 4cm clot expelled. Cervix closed per Dr. Aaron. Tolerated well.
[2022-11-12 05:20] LABS: Basophils Percent Auto 0.2 % (0.2-1.2); Eosinophils Absolute Auto 0.2 K/mm3 (0-0.3); Eosinophils Percent Auto 1.6 % (0-4.4); Hematocrit 32.6 % (37.0-47.0); Immature Granulocyte Absolute 0.09 K/mm3 (0.00-0.031); Immature Granulocyte Percent A 0.7 % (0-0.5); Lymphocytes Absolute Auto 0.97 K/mm3 (0.9-3.2); Mean Corpuscular HGB Conc 33.7 g/dl (32-36); Mean Corpuscular Hemoglobin 31.9 pg (26-34); Mean Corpuscular Volume 94.5 fl (80-100); Mean Platelet Volume 9.2 fl (7.4-10.4); Monocytes Absolute Auto 0.8 K/mm3 (0.1-0.6); Monocytes Percent Auto 6.4 % (2.6-8.5); Neutrophils Absolute Auto 10.1 K/mm3 (1.3-6.7); Neutrophils Percent Auto 83.1 % (45.5-73.1); Platelet Count Result 218 k/mm3 (150-375); Red Blood Count 3.45 M/mm3 (4.2-5.4); Red Cell Distribution Width 13.4 % (11.5-14.5); White Blood Count 12.2 K/mm3 (4.5-10.0)
[2022-11-12 05:30] LABS: Prothrombin Time 13.3 Seconds (11.1-14.7)
[2022-11-12 05:31] LABS: Partial Thromboplastin Time 26.7 SECONDS (22.3-36.8)
[2022-11-12 05:36] LABS: Alanine Aminotransferase 15 U/L (6-35); Alkaline Phosphatase 88 U/L (38-126); Anion Gap 7 mmol/L (8-16); Aspartate Amino Transferase 19 U/L (14-36); Bilirubin,Total 0.5 mg/dL (0.2-1.3); Blood Urea Nitrogen 10 mg/dL (7-17); Calcium 8.8 mg/dL (8.4-10.2); Carbon Dioxide 20 mmol/L (22-30); Chloride 108 mmol/L (98-107); Estimated Glomerular Filt Rate > 60; Glucose 100 mg/dL (65-110); Potassium 3.7 mmol/L (3.4-5.0); Sodium 135 mmol/L (137-145)
[2022-11-12] MEDS: DEXTROSE 5%/LACTATED RINGERS 1,000 ML 999 ML IV CONT (05:40)
[2022-11-12] MEDS: DEXTROSE 5%/LACTATED RINGERS 1,000 ML 999 ML (05:40)
[2022-11-12] MEDS: ONDANSETRON INJ 4 MG/2 ML VIAL IV PUSH (05:47)
[2022-11-12] MEDS: BETAMETHASONE SOD PHOS/ACETATE 30 MG/5 ML VIAL 12 MG IM (05:55)
[2022-11-12] MEDS: DEXTROSE 5%/LACTATED RINGERS 1,000 ML 125 ML IV CONT ×2 (06:20→11:03)
[2022-11-12] MEDS: FAMOTIDINE 20 MG/2 ML VIAL IV PUSH (07:52)
--- NOTE | 2022-11-12 13:35 | PC.NURSE ---
Dr Siddiqui notified of Lab results, BP and tracing. Orders for repeat labs tomorrow, 24 hour urine and monitoring q shift.
[2022-11-12] MEDS: ACETAMINOPHEN 500 MG TABLET 1000 MG PO (16:57)
--- NOTE | 2022-11-12 22:30 | PC.NURSE ---
RN noted scant amount of brown blood on pad, pad has been on for 6hrs per PT.
[2022-11-12] MEDS: LABETALOL HCL 50 MG TABLET PO (22:34)
[2022-11-12] MEDS: busPIRone HCL 10 MG TABLET PO (22:34)
[2022-11-12] MEDS: ASPIRIN 81 MG CHEWABLE TABLET PO (22:43)
[2022-11-12] MEDS: propylthiouraciL 50 MG TABLET PO (22:43)
[2022-11-13] VITALS (23 sets, daily range): BP systolic 102–120; BP diastolic 39–57; PULSE 52–179; O2SAT 80–100
--- NOTE | 2022-11-13 02:20 | PC.NURSE ---
PT reports no bleeding on pad at this time.
--- NOTE | 2022-11-13 06:30 | PC.NURSE ---
Report given to Jessica Sequeira RN
[2022-11-13] MEDS: BETAMETHASONE SOD PHOS/ACETATE 30 MG/5 ML VIAL 12 MG IM (06:38)
--- NOTE | 2022-11-13 08:33 | PM.DS ---
DS: Admitting Diagnosis Discharge Date 11/13/2022 Admitting Diagnosis 1. Thirty-one week intrauterine 2. Placenta previa with bleeding DS: Discharge Diagnosis Discharge Diagnosis Plan 1. Discharge home on bedrest 2. Keep follow-up appointments as scheduled 3. Parameters are discussed for which she should return to the hospital DS: Summary Hospital Course Reason for hospitalization: Vaginal bleeding Hospital Course: 31-year-old female at 31 weeks gestation with known placenta previa presented with vaginal bleeding. No pain or contractions. Was admitted and monitored with decreasing bleeding, ultrasound without abnormality other than placenta previa, steroids also were given empirically. Time Spent with Patient Time attestation: Total time spent providing and/or coordinating discharge services: DS: Data Data Completed and Pending Labs on day of discharge: Labs from last 24 hours 11/12/22 05:13 Antibody Identification Passive Due to RH Imm Glob Antigen Identification Not Reportable AYESHA, IgG Interpret Not Performed AYESHA, Complement Interp Not Performed Discharge Plan Discharge Discharging Clinician: Jarrett Lu Patient Disposition: Home, Self-Care Activity: may shower, no straining and pelvic rest Diet: as tolerated Patient Instructions: Antibiotic Form Stand Alone Forms: General Discharge Information Follow-up/Referrals: Jarrett Lu MD [Physician] - 1 Week Discharge Medications: Continued labetalol 100 mg tablet 100 mg PO Q12H buspirone 10 mg tablet 10 mg PO BID propylthiouracil 50 mg tablet 50 mg PO Q8HR Date of admission: 11/12/22 04:05 Primary Care Provider: Mecca,Jen Iverson Admitting Provider: Jarrett Lu Attending physician on admission: Jarrett Lu Condition: Stable
[2022-11-13] MEDS: LABETALOL HCL 50 MG TABLET PO (09:38)
[2022-11-13] MEDS: ACETAMINOPHEN 500 MG TABLET 1000 MG PO (09:39)
[2022-11-13] MEDS: busPIRone HCL 10 MG TABLET PO (09:39)
[2022-11-13] MEDS: FERROUS SULFATE 324 MG TABLET PO (09:39)
--- NOTE | 2022-11-13 10:00 | PC.NURSE ---
0700--No bleeding noted on peripad that pt has worn all night.
--- NOTE | 2022-11-13 12:26 | PC.NURSE ---
1220--IV DC'd, tip intact, IV site WNL. DC instructions reviewed with pt., pt. verbalizes understanding. She is waiting for her ride to get here, and states she will let us know when she is leaving the unit.
== END 2022-11-13 12:44 | disposition home or self-care (01) ==
PROVIDERS: Admitting Provider Obstetrics & Gynecology; PCP Nurse Practitioner Family; Visit Provider Obstetrics & Gynecology
DX: O44.13 Complete placenta previa with hemorrhage, third trimester (principal); O99.013 Anemia complicating pregnancy, third trimester; D64.9 Anemia, unspecified; O36.8330 Maternal care for abnormalities of the fetal heart rate or rhythm, third trimester, not applicable or unspecified; Z79.899 Other long term (current) drug therapy; Z3A.31 31 weeks gestation of pregnancy
CPT/HCPCS: 36415; 59025; 76815; 76819; 80053; 85025; 85610; 85730; 86850; 86880; 86900; 86901; 86902; 96361; 96372; 96374; 96375; A9270; G0378; G0379; J0702; J2405; J3105; J7121

== ENCOUNTER 2022-11-13 22:12 | Observation (INO) | payer OTHER, SELFPAY ==
[2022-11-13] VITALS (19 sets, daily range): BP systolic 110–120; BP diastolic 63–69; PULSE 80–123; O2SAT 97–100
[2022-11-13] MEDS: TERBUTALINE SULFATE 1 MG/ML VIAL 0.25 MG SUB-Q (23:06)
[2022-11-13] MEDS: NIFEdipine 30 MG TAB.ER.24 PO (23:09)
[2022-11-14] VITALS: PULSE 109; O2SAT 100
[2022-11-14 00:05] VITALS: PULSE 84; O2SAT 100
[2022-11-14 00:10] VITALS: PULSE 92; O2SAT 100
[2022-11-14 00:15] VITALS: PULSE 87; O2SAT 100
[2022-11-14 00:20] VITALS: PULSE 112; O2SAT 100
[2022-11-14 00:24] VITALS: BMI 23.4
--- NOTE | 2022-11-15 15:23 | PM.OBTRLD ---
OB - Triage/Final Diagnosis Visit Information Reason for evaluation: threatened labor Comments/Additional reasons for admission: I have assessed the risk for this patient, Janene Bishop, and determined that she would benefit from observation care.
== END 2022-11-14 00:30 | disposition home or self-care (01) ==
PROVIDERS: Admitting Provider Obstetrics & Gynecology; PCP Nurse Practitioner Family; Visit Provider Obstetrics & Gynecology
DX: O47.03 False labor before 37 completed weeks of gestation, third trimester (principal); Z3A.31 31 weeks gestation of pregnancy
CPT/HCPCS: 96372; A9270; G0378; G0379; J3105

== ENCOUNTER 2022-11-24 23:56 | Observation (INO) | payer OTHER, SELFPAY ==
[2022-11-25] VITALS (38 sets, daily range): PULSE 79–108; O2SAT 97–100; BMI 22.6
[2022-11-25] MEDS: LACTATED RINGERS 1,000 ML 999 ML IV CONT (00:54)
--- NOTE | 2022-11-25 00:57 | OBADM ---
This patient, Janene Bishop, admitted to the OB room OB Post 116 for observation. Patient/family oriented to hospital policies and general routines including ID bracelet, bed and alarms, visiting hours, pain management, procedures, bathroom and other care routines, personal items, smoking policy, room service/diet, and visiting hours. Patient/Family are encouraged to report perceived risks to care and to ask questions if they do not understand what they are told or what they should do.
--- NOTE | 2022-11-25 01:54 | PC.NURSE ---
0150- Pt denies feeling contractions at this time. Pt states I don't feel them . RN explained to pt the administration of terb, pt verbalizes that she would prefer to not take the terb as it made her feel like crap last time . RN explained benefits of terb as well as risks of not taking it. Pt still declines medication at this time.
--- NOTE | 2022-11-25 01:56 | PC.NURSE ---
Discussed terbutaline administration with patient. Patient agrees to monitor for an hour after completion of fluids and will continue with terb if contractions do not dissipate.
[2022-11-25] MEDS: TERBUTALINE SULFATE 1 MG/ML VIAL 0.25 MG SUB-Q (02:59)
--- NOTE | 2022-11-25 03:06 | PC.NURSE ---
0258- Discussed administration of terbutaline with patient. Pt consents administration of terbutaline at this time. HR of 85 at time of administration.
--- NOTE | 2022-11-25 03:37 | PC.NURSE ---
Pt states that she does not feel contractions at this time and much better since administration of terb.
--- NOTE | 2022-11-25 04:00 | PC.NURSE ---
After being on the monitor for one hour post terb administration, contractions have stopped. Pt denies feeling any contractions at this time. RN provided patient with discharge instructions and patient verbalizes understanding.
--- NOTE | 2022-11-27 13:24 | PM.OBTRLD ---
OB - Triage/Final Diagnosis Visit Information Comments/Additional reasons for admission: I have assessed the risk for this patient, Janene Bishop, and determined that she would benefit from observation care. Final Diagnosis (1) Uterine contractions: Code(s): O47.9 - False labor, unspecified Status: Acute
== END 2022-11-25 04:16 | disposition home or self-care (01) ==
PROVIDERS: Admitting Provider Obstetrics & Gynecology; PCP Nurse Practitioner Family; Visit Provider Obstetrics & Gynecology
DX: O47.9 False labor, unspecified (principal); Z3A.00 Weeks of gestation of pregnancy not specified
CPT/HCPCS: 96372; G0378; G0379; J3105; J7120

== ENCOUNTER 2022-12-02 17:25 | Observation (INO) | payer OTHER, SELFPAY ==
[2022-12-02] VITALS (11 sets, daily range): PULSE 96–111; RESP 16; TEMP 36.8; O2SAT 97–100; BMI 22.4
[2022-12-02] MEDS: TERBUTALINE SULFATE 1 MG/ML VIAL 0.25 MG SUB-Q (17:57)
[2022-12-02] MEDS: LACTATED RINGERS 1,000 ML 999 ML IV CONT (18:18)
--- NOTE | 2022-12-02 19:00 | PC.NURSE ---
Updated Dr. Lu on maternal and assessment. Patient resting comfortable without contractions. Patient denies cramping/tightening/pressure/contractions. FHT reactive. VSS. Discharge orders received.
--- NOTE | 2022-12-02 19:17 | PC.NURSE ---
Discharge instructions reviewed with patient, labor precautions reviewed. Patient instructed to maintain pelvic rest. Patient instructed to follow-up at regular OB appointment. Patient states understanding of discharge instructions and denies questions. Patient left ambulating at 1917.
== END 2022-12-02 19:17 | disposition home or self-care (01) ==
PROVIDERS: Admitting Provider Obstetrics & Gynecology; PCP Nurse Practitioner Family; Visit Provider Obstetrics & Gynecology
DX: O47.03 False labor before 37 completed weeks of gestation, third trimester (principal); Z3A.34 34 weeks gestation of pregnancy
CPT/HCPCS: 96360; 96372; G0378; G0379; J3105; J7120

== ENCOUNTER 2022-12-13 13:43 | Observation (INO) | payer OTHER, SELFPAY ==
[2022-12-13 14:00] VITALS: BP 116/65; PULSE 101
[2022-12-13 14:15] VITALS: BP 116/64; PULSE 101
[2022-12-13] MEDS: TERBUTALINE SULFATE 1 MG/ML VIAL 0.25 MG SUB-Q (14:25)
[2022-12-13 14:30] VITALS: BP 115/56; PULSE 99
[2022-12-13 15:00] VITALS: BP 102/76; PULSE 105
[2022-12-13 15:10] VITALS: BMI 23.4
--- NOTE | 2022-12-13 15:11 | OBADM ---
This patient, Janene Bishop, admitted to the OB room OB Post 116 for observation. Patient/family oriented to hospital policies and general routines including ID bracelet, bed and alarms, visiting hours, pain management, procedures, bathroom and other care routines, personal items, smoking policy, room service/diet, and visiting hours. Patient/Family are encouraged to report perceived risks to care and to ask questions if they do not understand what they are told or what they should do. Pt. presents with reports of abdominal and pelvic pain. States she has a complete previa and will has R c/s scheduled in 3 weeks. She reports good movement and denies vaginal bleeding and LOF.
[2022-12-13 15:15] VITALS: BP 114/60; PULSE 106
[2022-12-13 15:30] VITALS: BP 115/57; PULSE 107
--- NOTE | 2022-12-14 12:11 | PM.OBTRLD ---
OB - Triage/Final Diagnosis Visit Information Reason for evaluation: threatened labor Comments/Additional reasons for admission: I have assessed the risk for this patient, Janene Bishop, and determined that she would benefit from observation care. Evaluation Vital signs: Vital Signs - 24 hr 12/13/22 14:00 12/13/22 14:15 12/13/22 14:30 Pulse Rate 101 H 101 H 99 Blood Pressure 116/65 116/64 115/56 L 12/13/22 15:00 12/13/22 15:15 12/13/22 15:30 Pulse Rate 105 H 106 H 107 H Blood Pressure 102/76 114/60 115/57 L
== END 2022-12-13 15:45 | disposition home or self-care (01) ==
PROVIDERS: Admitting Provider Obstetrics & Gynecology; PCP Nurse Practitioner Family; Visit Provider Obstetrics & Gynecology
DX: O47.03 False labor before 37 completed weeks of gestation, third trimester (principal); Z3A.35 35 weeks gestation of pregnancy
CPT/HCPCS: 96372; G0379; J3105

== ENCOUNTER 2022-12-23 19:19 | Observation (INO) | payer OTHER, SELFPAY ==
--- NOTE | 2022-12-23 19:19 | OBADM ---
This patient, Janene Bishop, admitted to the OB room Labor/Delivery/Recovery 120 for observation. Patient/family oriented to hospital policies and general routines including ID bracelet, bed and alarms, visiting hours, pain management, procedures, bathroom and other care routines, personal items, smoking policy, room service/diet, and visiting hours. Patient/Family are encouraged to report perceived risks to care and to ask questions if they do not understand what they are told or what they should do.
[2022-12-23 19:30] VITALS: RESP 17; TEMP 36.8
--- NOTE | 2022-12-23 20:36 | PC.NURSE ---
2035- Updated Dr. Lu on maternal and assessments. Patient reports contractions throughout the day and states she became more uncomfortable during dinner and wanted to come be evaluated. Patient denies any LOF or vaginal bleeding. Patient abdomen palpates soft. Patient juan carlos 5-6 times per hour, patient states she is now resting comfortably and no longer feeling contractions. Patient reports active movement. VSS. Discharge orders received.
--- NOTE | 2022-12-23 21:05 | PC.NURSE ---
Discharge instructions were reviewed with patient. Labor precautions and placenta previa precautions reviewed with patient. Patient states understanding fo all discharge instructions and education. Patient instructed to follow-up as scheduled. Patient agreeable to discharge and left ambulating at 2105.
== END 2022-12-23 21:05 | disposition home or self-care (01) ==
PROVIDERS: Admitting Provider Obstetrics & Gynecology; PCP Nurse Practitioner Family; Visit Provider Obstetrics & Gynecology
DX: O47.1 False labor at or after 37 completed weeks of gestation (principal); Z3A.37 37 weeks gestation of pregnancy
CPT/HCPCS: G0378; G0379

== ENCOUNTER 2022-12-26 11:37 | Outpatient (CLI) | payer OTHER, SELFPAY ==
[2022-12-26 12:12] LABS: Hematocrit 31.1 % (37.0-47.0); Hemoglobin 10.3 g/dL (12.0-15.0); Mean Corpuscular HGB Conc 33.1 g/dl (32-36); Mean Corpuscular Hemoglobin 30.9 pg (26-34); Mean Corpuscular Volume 93.4 fl (80-100); Mean Platelet Volume 9.3 fl (7.4-10.4); Platelet Count Result 161 k/mm3 (150-375); Red Blood Count 3.33 M/mm3 (4.2-5.4); Red Cell Distribution Width 13.2 % (11.5-14.5); White Blood Count 9.1 K/mm3 (4.5-10.0)
[2022-12-26 12:45] LABS: Rapid Plasma Reagin Non-Reactive (NonReactive)
== END 2022-12-26 11:38 | disposition home or self-care (01) ==
LOC: ANHLAB 11:38
PROVIDERS: PCP Nurse Practitioner Family; Visit Provider Obstetrics & Gynecology
DX: Z34.93 Encounter for supervision of normal pregnancy, unspecified, third trimester (principal); Z3A.00 Weeks of gestation of pregnancy not specified
CPT/HCPCS: 36415; 85027; 86592; 86850; 86880; 86900; 86901; 86902

== ENCOUNTER 2022-12-27 09:28 | Inpatient (IN) | payer OTHER, SELFPAY ==
[2022-12-27] VITALS (67 sets, daily range): BP systolic 88–122; BP diastolic 43–75; PULSE 73–297; RESP 16–18; TEMP 36–37.3; O2SAT 91–100; BMI 23.3
--- NOTE | 2022-12-27 09:12 | PM.IMHP ---
H&P: HPI History of Present Illness Date/Time: 12/27/22 09:12 [age] old female at 37 weeks gestation presents for repeat delivery. also has been complicated by placenta previa though she has not had any significant bleeding episodes. records are chart for review. Chief Complaint: Review of Systems Review of Systems: All systems reviewed & are unremarkable except as noted in HPI and below PMFSH Past Medical History Medical History Anxiety Healthy female adult Hyperlipidemia Suppression of menses Thyroid disease Surgical History Surgical History History of section Family History Family History Sibling Graves disease Alex's disease Grandparent Heart disease Hypertension Father Asthma Mother Hypertension Other Unknown family medical history Social History Social History Smoking status: Never smoker Second hand tobacco smoke exposure: Yes Alcohol intake: never Substance use: never Substance use type: does not use Lack of Transportation: No Lack of Food: Never True Current Housing: I Have Housing Concerned About Future Housing: No Difficulty Paying Gas/Electric Bills: No Difficulty Paying for Meds: No Currently Unemployed: No Education: Grade School Difficulty w/ Childcare or Family Care: No Living arrangements: other Additional living arrangements comments: Occupation/Education: 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 Gender identity (if verbalized by the patient): Female Sexual Orientation (if Verbalized by the Patient): Straight or Heterosexual Spiritual care concerns: No Meds Home Medications and Allergies Home Medications Medication Instructions Recorded Confirmed Type buspirone 10 mg tablet 10 mg PO BID 04/26/22 12/19/22 History propylthiouracil 50 mg tablet 50 mg PO DAILY 07/24/22 12/19/22 History nifedipine 30 mg tablet,extended 30 mg PO DAILY #30 tabs 11/13/22 12/19/22 Rx release 24 hr (Procardia XL) Allergies Allergy/AdvReac Type Severity Reaction Status Date / Time Penicillins Allergy Severe Hives Verified 12/25/22 10:09 amoxicillin Allergy Intermediate Hives Verified 12/25/22 10:09 Exam Const: General: cooperative, healthy appearing and comfortable Resp: Effort & Inspection: normal respiratory effort Auscultation: clear to auscultation bilaterally Cardio: Rate: regular rate Rhythm: regular rhythm GI: Inspection: normal to inspection and incision Auscultation: normal bowel sounds : Bimanual exam- vagina & uterus: enlarged (Fundal height 36cm heart tones 130-140) Assessment and Plan Assessment and plan (1) 37 weeks gestation of : Code(s): Z3A.37 - 37 weeks gestation of Status: Acute (2) Previous section: Code(s): Z98.891 - History of uterine scar from previous surgery Status: Acute (3) Placenta previa affecting delivery: Code(s): O44.00 - Complete placenta previa NOS or without hemorrhage, unspecified trimester Status: Acute Plan Proceed with repeat low-transverse section
--- NOTE | 2022-12-27 09:15 | WPDHPUPDATE1 ---
History and Physical Update Update Date/Time: 12/27/22 09:15 History and Physical has been reviewed, including an updated exam of the patient. There are NO changes in the patient's condition. Risks, benefits, and alternatives have been discussed and questions answered. Patient agrees to proceed with procedure.
--- NOTE | 2022-12-27 10:30 | WPDANESEPPF ---
Anes - Initial Pre Proc Eval Procedure: Operation Date: 12/27/22 13:30 Proposed Procedures p Repeat Section - Jarrett Lu MD Date/Time: 12/27/22 10:30 Surgeon: Jarrett Lu MD Pre Op Diagnosis: R C/S Patient Data Age: 32 Gender: F Height: 1.55 m Weight: 56 kg Last Vital Signs Pulse 90 12/27/22 10:12 BP 122/62 12/27/22 10:12 Allergies Allergy/AdvReac Type Severity Reaction Status Date / Time Penicillins Allergy Severe Hives Verified 12/25/22 10:09 amoxicillin Allergy Intermediate Hives Verified 12/25/22 10:09 Home Medications Medication Instructions Recorded Confirmed Type buspirone 10 mg tablet 10 mg PO BID 04/26/22 12/19/22 History propylthiouracil 50 mg tablet 50 mg PO DAILY 07/24/22 12/19/22 History nifedipine 30 mg tablet,extended 30 mg PO DAILY #30 tabs 11/13/22 12/19/22 Rx release 24 hr (Procardia XL) Patient hx anesthesia problems: none and other (difficult 1st spinal) Family hx anesthesia problems: none Results Review: All pre-operative results and documents have been reviewed as part of the pre-operative evaluation. [facility] Past Medical History Medical History Anxiety Healthy female adult Hyperlipidemia Suppression of menses Thyroid disease Surgical History Surgical History History of section Family History Family History Sibling Graves disease Alex's disease Grandparent Heart disease Hypertension Father Asthma Mother Hypertension Other Unknown family medical history Social History Social History Smoking status: Never smoker Second hand tobacco smoke exposure: Yes Alcohol intake: never Substance use: never Substance use type: does not use Lack of Transportation: No Lack of Food: Never True Current Housing: I Have Housing Concerned About Future Housing: No Difficulty Paying Gas/Electric Bills: No Difficulty Paying for Meds: No Currently Unemployed: No Education: Grade School Difficulty w/ Childcare or Family Care: No Living arrangements: other Additional living arrangements comments: Occupation/Education: 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 Gender identity (if verbalized by the patient): Female Sexual Orientation (if Verbalized by the Patient): Straight or Heterosexual Spiritual care concerns: No Anes - Eval Final PreProcedure Day of Procedure 12/27/22 10:30 Patient weight: normal Heart: regular rate and rhythm Lungs: clear to auscultation Airway: Mallampati scale Neurological: alert and oriented Last oral intake: >/= 8 hours ASA classification: III Emergent: no Anesthetic plan: proceed Anesthesia type and monitoring: regional spinal and standard monitoring Results Review: All pre-operative results and documents have been reviewed as part of the pre-operative evaluation. Informed Consent: The patient's anesthetic plan and its attendant risks and benefits were discussed with the patient/family/POA. Questions were solicited and answers provided to the satisfaction of the patient/family/POA.
[2022-12-27] MEDS: LACTATED RINGERS 1,000 ML 125 ML IV CONT ×2 (10:35→15:00)
[2022-12-27] MEDS: CLINDAMYCIN 900 MG/D5W 50 ML 900 MG/50 ML PIGGYBACK 50 MG IVPB (10:40)
[2022-12-27] MEDS: MORPHINE SULFATE INJ (*CRX) 10 MG/ML AMP 3 MG IV PUSH ×2 (12:00→13:06)
[2022-12-27] MEDS: ONDANSETRON INJ 4 MG/2 ML VIAL IV PUSH (12:00)
[2022-12-27] MEDS: OXYTOCIN 30 UNITS/NS 500 ML 30 UNITS/500 ML BAG 125 UNITS IV CONT (12:00)
--- NOTE | 2022-12-27 12:20 | PM.OBPRVD ---
OB - Delivery Note Procedure Procedure: Procedures Operation Date: 12/27/22 13:30 <No data on this case meets the specified criteria> Events: Placenta Previa and Previous Delivery Delivery monitor: External FHT and External Uterine Route of delivery: Specimen: Yes Quantitative Blood Loss (ml): 1,325 Anesthesia type: Spinal Disposition: Floor Complications: None Narrative: Patient prepped and draped usual manner for this procedure. Pfannenstiel incision was made which was then carried down to the fascia and extended bilaterally the length of the skin incision. Superiorly and inferiorly rectus muscle was then dissected away from the fascia. Peritoneum was readily entered and bladder flap was delivered fell apart. Uterus scored in low transverse manner and lower segment incised after fluid was noted to be clear. Vertex was delivered, nuchal cord was readily reduced, and the wrist baby was delivered without difficulty. Cord clamped and cut and placenta was removed. Lower segment was bleeding and pressure was placed with ultimately hemostasis/normal amount of bleeding noted. The rest of the uterus was well contracted with minimal bleeding. Uterus was then closed using 0 Monocryl in running interlocking manner good approximation hemostasis noted with good closure of the uterine incision. There was a defect in the anterior abdominal wall which rendered hemostatic using a 0 Monocryl in a running interlocking manner. [place] term and Gelfoam were placed on the defect with good hemostasis continued to be noticed. Uterus turned to the abdomen gutters were cleared of serosanguineous fluid and clots and the fascia was then approximated 0 Vicryl from left angle midline and the right angle to midline with good approximation noted. [place] were then used to approximate the skin edges and the immediate postoperative condition of patient was excellent. Baby Weeks of gestation at delivery: 37 gender: Female Weight (pounds): 5 Weight (ounces): 10 presentation: vertex Cord Vessel Description: 3 Vessels, Nuchal Cord and Reduced score one minute: 7 score five minutes: 8 AMG Delivery Billing Delivery Delivery: Delivery Charge
[2022-12-27] MEDS: miSOPROStol 200 MCG TABLET 1000 MCG (13:05)
[2022-12-27] MEDS: TRANEXAMIC ACID 1,000MG/ISO100 1,000 MG/100 ML BAG 200 MG IVPB (13:36)
[2022-12-27] MEDS: METHYLERGONOVINE MALEATE 0.2 MG/ML VIAL (14:05)
[2022-12-27 14:22] LABS: Hematocrit 25.7 % (37.0-47.0); Hemoglobin 8.3 g/dL (12.0-15.0); Mean Corpuscular HGB Conc 32.3 g/dl (32-36); Mean Corpuscular Hemoglobin 30.4 pg (26-34); Mean Corpuscular Volume 94.1 fl (80-100); Mean Platelet Volume 9.4 fl (7.4-10.4); Platelet Count Result 195 k/mm3 (150-375); Red Blood Count 2.73 M/mm3 (4.2-5.4); Red Cell Distribution Width 13.2 % (11.5-14.5); White Blood Count 14.8 K/mm3 (4.5-10.0)
--- NOTE | 2022-12-27 15:58 | PC.NURSE ---
1303: Dr. Lu notified of excessive bleeding. Orders to give cytotec 1000 mg 1325: Per Dr. Lu if cytotec not working, give TXA 1400: Dr. Lu notified of continued excessive bleeding. Orders for methergine and CBC 1455: Dr. Lu notified of bleeding subsiding. Per Dr. Lu patient to stay on 1st floor for a couple of hours.
[2022-12-27] MEDS: KETOROLAC 30 MG/ML VIAL (*BKC) IV PUSH ×2 (16:50→22:52)
[2022-12-27] MEDS: DEXTROSE 5%/0.45% SOD CHL 1,000 ML 125 ML IV CONT (18:02)
--- NOTE | 2022-12-27 18:31 | OBPPTRN ---
1735-Patient transferred to post room #284 via sretcher. Support person present. Oriented to unit, room, information board, rooming in, admission packet and security measures. Patient verbalizes understanding.
[2022-12-27] MEDS: ACETAMINOPHEN 325 MG TABLET 650 MG PO (22:53)
[2022-12-28] VITALS (12 sets, daily range): BP systolic 94–107; BP diastolic 52–64; PULSE 92–124; RESP 16–18; TEMP 36.4–37.4; O2SAT 96–100
[2022-12-28] MEDS: DEXTROSE 5%/0.45% SOD CHL 1,000 ML 125 ML IV CONT (00:04)
[2022-12-28] MEDS: HYDROcodone/acetaminophen (*CRX) 5-325 MG TABLET 1 TAB PO ×3 (02:42→10:04)
[2022-12-28] MEDS: KETOROLAC 30 MG/ML VIAL (*BKC) IV PUSH (05:00)
[2022-12-28] MEDS: ACETAMINOPHEN 325 MG TABLET 650 MG PO (05:00)
[2022-12-28 08:47] LABS: Basophils Percent Auto 0.1 % (0.2-1.2); Eosinophils Absolute Auto 0.1 K/mm3 (0-0.3); Eosinophils Percent Auto 0.5 % (0-4.4); Immature Granulocyte Absolute 0.06 K/mm3 (0.00-0.031); Immature Granulocyte Percent A 0.6 % (0-0.5); Lymphocytes Absolute Auto 1.31 K/mm3 (0.9-3.2); Lymphocytes Percent Auto 14.1 % (18.3-44.2); Mean Corpuscular Hemoglobin 30.7 pg (26-34); Mean Corpuscular Volume 96.1 fl (80-100); Mean Platelet Volume 9.4 fl (7.4-10.4); Monocytes Absolute Auto 1.1 K/mm3 (0.1-0.6); Monocytes Percent Auto 11.6 % (2.6-8.5); Neutrophils Absolute Auto 6.8 K/mm3 (1.3-6.7); Neutrophils Percent Auto 73.1 % (45.5-73.1); Platelet Count Result 123 k/mm3 (150-375); Red Blood Count 1.79 M/mm3 (4.2-5.4); Red Cell Distribution Width 13.2 % (11.5-14.5); White Blood Count 9.3 K/mm3 (4.5-10.0)
--- NOTE | 2022-12-28 08:52 | PM.OBPNVD ---
OB - PN: Subj Subjective Date/time seen: 12/28/22 08:52 Interval history: patient resting comfortably in bed this morning. Patient states she is fatigued. She has not tried ambulating out of bed yet. She denies any pain or bleeding issues overnight. Patient states her pain is well controlled. Patient comments: no complaints, pain well controlled, tolerating diet and flatus present OB - PN: Obj Data Labs 12/27/22 14:15 Labs: Laboratory Results - last 24 hr 12/27/22 14:15 WBC 14.8 H RBC 2.73 L Hgb 8.3 L Hct 25.7 L MCV 94.1 MCH 30.4 MCHC 32.3 RDW 13.2 Plt Count 195 MPV 9.4 OB - PN A/P Plan day: 1 Plan: routine care Comments: patient doing well Hemoglobin dropped to 5.5. Patient had large volume blood loss at the time of delivery. Patient consented for blood transfusion today. Will administer 3 units PRBCs. afebrile, VSS incision C/D/I atkins removed, voiding spontaneously continue routine post op care Time Spent With Patient Time: Total time spent is greater than 50% in coordination of care (as documented) at patient's floor/unit and/or counseling patient: Time with patient: less than 15 minutes Review of Systems Constitutional: Constitutional: Reports no additional constitutional complaints Cardiovascular: Cardiovascular: Reports no additional cardiovascular complaints Respiratory: Respiratory: Reports no additional respiratory complaints Gastrointestinal: Gastrointestinal: Reports no additional gastrointestinal complaints Genitourinary: Genitourinary: Reports no additional female genitourinary complaints Exam Const: General: comfortable and no acute distress Resp: Effort & Inspection: normal respiratory effort Auscultation: clear to auscultation bilaterally Cardio: Rate: regular rate GI: GI Palp: Yes Soft to palpation, Yes Tenderness to palpation present (GI) (around incision ) and No Guarding due to palpation present (GI) Auscultation: normal bowel sounds Other: incision C/D/I, covered with Dermabond Psych: Appearance: grossly normal Mental Status: mental status grossly normal Affect: normal affect
[2022-12-28 08:58] LABS: Hematocrit 17.2 % (37.0-47.0); Hemoglobin 5.5 g/dL (12.0-15.0)
[2022-12-28] MEDS: busPIRone HCL 10 MG TABLET PO ×2 (09:06→22:51)
[2022-12-28] MEDS: SODIUM CHLORIDE 0.9% IV 250 ML 30 ML IV CONT (09:07)
[2022-12-28] MEDS: DOCUSATE SODIUM 100 MG CAPSULE PO ×2 (09:07→16:03)
[2022-12-28] MEDS: MULTIVIT/MIN/PREN/FOL AC/IRON TABLET 1 TAB PO (09:07)
[2022-12-28] MEDS: POLYSACCHARIDE IRON COMPLEX 150 MG CAPSULE PO ×2 (09:07→16:03)
[2022-12-28] MEDS: propylthiouraciL 50 MG TABLET PO (10:03)
[2022-12-28] MEDS: SIMETHICONE 80 MG TAB.CHEW PO ×4 (10:04→18:18)
[2022-12-28] MEDS: IBUPROFEN 600 MG TABLET PO ×2 (11:54→18:18)
[2022-12-28] MEDS: HYDROcodone/acetaminophen (*CRX) 10-325 MG TABLET 1 TAB PO ×4 (12:56→22:51)
--- NOTE | 2022-12-28 14:24 | WPDANLDPN2 ---
Anes-Prog Note L&D Date/Time: 12/28/22 14:24 Neuro status: Neuro function grossly intact. Vital Signs: Last Vital Signs Temp 37.1 C 12/28/22 12:57 Pulse 107 H 12/28/22 12:57 Resp 16 12/28/22 12:57 BP 94/52 L 12/28/22 12:57 Pulse Ox 96 12/28/22 12:57 O2 Del Method Room Air 12/28/22 02:42 Pain score (VAS): 0 I/O: Intake & Output 12/27/22 12/28/22 12/28/22 23:59 07:59 15:59 Intake Total 1000 653 Output Total 1513 1150 Balance -1513 1000 -497 Patient feedback: Patient satisfied with anesthetic care.
--- NOTE | 2022-12-28 14:25 | WPDANLDNPN2 ---
Anes-Prog Note L&D-Neuraxial Date/Time: 12/28/22 14:25 Patient feedback: Patient satisfied with post-operative pain management.
[2022-12-29] MEDS: IBUPROFEN 600 MG TABLET PO ×2 (00:45→14:52)
[2022-12-29] MEDS: HYDROcodone/acetaminophen (*CRX) 10-325 MG TABLET 1 TAB PO (01:38)
[2022-12-29 04:23] LABS: Basophils Percent Auto 0.2 % (0.2-1.2); Eosinophils Absolute Auto 0.2 K/mm3 (0-0.3); Eosinophils Percent Auto 1.3 % (0-4.4); Hematocrit 25.2 % (37.0-47.0); Hemoglobin 8.5 g/dL (12.0-15.0); Immature Granulocyte Absolute 0.17 K/mm3 (0.00-0.031); Immature Granulocyte Percent A 1.3 % (0-0.5); Lymphocytes Absolute Auto 1.55 K/mm3 (0.9-3.2); Lymphocytes Percent Auto 11.4 % (18.3-44.2); Mean Corpuscular HGB Conc 33.7 g/dl (32-36); Mean Corpuscular Hemoglobin 30.9 pg (26-34); Mean Corpuscular Volume 91.6 fl (80-100); Mean Platelet Volume 9.5 fl (7.4-10.4); Monocytes Absolute Auto 1.3 K/mm3 (0.1-0.6); Monocytes Percent Auto 9.2 % (2.6-8.5); Neutrophils Absolute Auto 10.4 K/mm3 (1.3-6.7); Neutrophils Percent Auto 76.6 % (45.5-73.1); Platelet Count Result 122 k/mm3 (150-375); Red Blood Count 2.75 M/mm3 (4.2-5.4); Red Cell Distribution Width 14.8 % (11.5-14.5); White Blood Count 13.5 K/mm3 (4.5-10.0)
[2022-12-29] MEDS: HYDROcodone/acetaminophen (*CRX) 5-325 MG TABLET 1 TAB PO ×6 (05:43→21:28)
[2022-12-29 08:00] VITALS: BP 98/55; PULSE 87; RESP 16; TEMP 36.6; O2SAT 99
[2022-12-29] MEDS: DOCUSATE SODIUM 100 MG CAPSULE PO ×2 (09:30→17:22)
[2022-12-29] MEDS: POLYSACCHARIDE IRON COMPLEX 150 MG CAPSULE PO ×2 (09:30→17:22)
[2022-12-29] MEDS: busPIRone HCL 10 MG TABLET PO ×2 (09:30→21:28)
[2022-12-29] MEDS: propylthiouraciL 50 MG TABLET PO (09:31)
[2022-12-29] MEDS: MULTIVIT/MIN/PREN/FOL AC/IRON TABLET 1 TAB PO (09:31)
--- NOTE | 2022-12-29 09:46 | P.PNOB_ITS ---
OB - PN: Subj Subjective Date/time seen: 12/29/22 09:46 Interval history: Patient doing well this morning. Feels much better after transfusion. pain is controlled by PO medications. Pt is ambulating. She is tolerating PO. OB - PN: Obj Data Labs 12/29/22 04:17 Labs: Laboratory Results - last 24 hr 12/28/22 12/29/22 10:17 04:17 WBC 13.5 H RBC 2.75 L Hgb 8.5 L D Hct 25.2 L MCV 91.6 MCH 30.9 MCHC 33.7 RDW 14.8 H Plt Count 122 L MPV 9.5 Immature Gran % (Auto) 1.3 H Neut % (Auto) 76.6 H Lymph % (Auto) 11.4 L [place] % (Auto) 9.2 H Eos % (Auto) 1.3 Baso % (Auto) 0.2 Lymph # (Auto) 1.55 [place] # (Auto) 1.3 H Eos # (Auto) 0.2 Baso # (Auto) 0.0 Abs Immat Gran (auto) 0.17 H Absolute Neuts (auto) 10.4 H Absolute Nucleated RBC 0.0 Nucleated RBC % 0.0 Blood Type O Negative Antibody Screen TNP Screen Negative Baby's Blood Type O pos Baby's AYESHA Positive Doses of RhIg Required 1 Crossmatch See Detail OB - PN A/P Plan day: 2 Plan: routine care Comments: patient doing well H/H increased to 8.5. pt asymptomatic. Will continue iron continue to monitor bleeding afebrile, VSS incision C/D/I Pt requesting to be discharged tomorrow morning continue routine post op care Time Spent With Patient Time: Total time spent is greater than 50% in coordination of care (as documented) at patient's floor/unit and/or counseling patient: Time with patient: less than 15 minutes
--- NOTE | 2022-12-29 09:48 | PM.OBDSVD ---
DS: Admitting Diagnosis Discharge Date 12/30/22 Admitting Diagnosis intrauterine at term placenta previa DS: Discharge Diagnosis Discharge Diagnosis (1) Placenta previa: Code(s): O44.00 - Complete placenta previa NOS or without hemorrhage, unspecified trimester Status: Acute (2) Anemia affecting : Code(s): O99.019 - Anemia complicating , unspecified trimester Status: Acute (3) 37 weeks gestation of : Code(s): Z3A.37 - 37 weeks gestation of Status: Acute OB - DS: Summary OB Procedures : None OB Procedures Intrapartum: OB Procedures: : None and Transfusion Peripartum Data Delivery Method: Section Procedures: Procedures Operation Date: 12/27/22 11:00 Actual Procedure Side Surgeon p Repeat Section Not Applicable Jarrett Lu MD complications: none and transfusion Status at Discharge Functional status at discharge: independent ambulation Overall status at discharge: patient is progressing back to baseline Time Spent with Patient Time attestation: Total time spent providing and/or coordinating discharge services: Time spent: Less than 30 minutes Exam Const: General: comfortable and no acute distress Resp: Effort & Inspection: normal respiratory effort Auscultation: clear to auscultation bilaterally Cardio: Rate: regular rate GI: Inspection: non-distended GI Palp: Yes Soft to palpation, No Firmness to palpation present (GI), Yes Tenderness to palpation present (GI) (mild tenderness over incision ) and No Guarding due to palpation present (GI) Auscultation: normal bowel sounds Psych: Appearance: grossly normal Mental Status: mental status grossly normal DS: Data Data Completed and Pending Pending studies at discharge: Pending at discharge 12/27/22 19:20 Surgical [PTH] Routine Labs on day of discharge: Labs from last 24 hours 12/29/22 12/28/22 04:17 10:17 WBC 13.5 H RBC 2.75 L Hgb 8.5 L D Hct 25.2 L MCV 91.6 MCH 30.9 MCHC 33.7 RDW 14.8 H Plt Count 122 L MPV 9.5 Immature Gran % (Auto) 1.3 H Neut % (Auto) 76.6 H Lymph % (Auto) 11.4 L [place] % (Auto) 9.2 H Eos % (Auto) 1.3 Baso % (Auto) 0.2 Lymph # (Auto) 1.55 [place] # (Auto) 1.3 H Eos # (Auto) 0.2 Baso # (Auto) 0.0 Abs Immat Gran (auto) 0.17 H Absolute Neuts (auto) 10.4 H Absolute Nucleated RBC 0.0 Nucleated RBC % 0.0 Blood Type O Negative Antibody Screen TNP Screen Negative Baby's Blood Type O pos Baby's AYESHA Positive Doses of RhIg Required 1 Crossmatch See Detail Discharge Plan Discharge Discharging Clinician: Quintin Mejias Anticipated Discharge Date/Time: 12/30/22 09:49 Patient Disposition: Home, Self-Care Activity: as tolerated and pelvic rest Diet: regular Patient Instructions: Antibiotic Form Stand Alone Forms: General Discharge Information Follow-up/Referrals: Jarrett Lu MD [Physician] - Discharge Medications: New oxycodone-acetaminophen 5-325 mg tablet 1 tablet PO Q6H PRN (Reason: pain) Qty: 28 0RF polysaccharide iron complex 150 mg iron Capsule 150 mg PO BIDWM Qty: 60 0RF ibuprofen 600 mg tablet 600 mg PO Q6H PRN (Reason: pain) Qty: 30 0RF Continued buspirone 10 mg tablet 10 mg PO BID propylthiouracil 50 mg tablet 50 mg PO DAILY Date of admission: 12/27/22 09:28 Primary Care Provider: Mecca,Jen Iverson Admitting Provider: Jarrett Lu Attending physician on admission: Jarrett Lu Condition: Stable
[2022-12-29] MEDS: RHO(D) IMMUNE GLOBULIN 300 MCG/2 ML SYRINGE IM (15:31)
[2022-12-29] MEDS: SIMETHICONE 80 MG TAB.CHEW PO ×2 (18:30→23:20)
[2022-12-29 19:06] VITALS: BP 115/65; PULSE 96; RESP 18; TEMP 36.8; O2SAT 100
[2022-12-30] MEDS: HYDROcodone/acetaminophen (*CRX) 5-325 MG TABLET 1 TAB PO ×3 (00:38→07:35)
[2022-12-30] MEDS: SIMETHICONE 80 MG TAB.CHEW PO ×2 (00:38→07:29)
[2022-12-30] MEDS: IBUPROFEN 600 MG TABLET PO ×2 (00:38→07:35)
[2022-12-30] MEDS: CALCIUM CARBONATE (TUMS) 500 MG (200 MG ELEMENTAL) PO (07:28)
[2022-12-30 07:40] VITALS: BP 127/75; PULSE 72; RESP 16; TEMP 36.6
[2022-12-30] MEDS: propylthiouraciL 50 MG TABLET PO (09:58)
[2022-12-30] MEDS: busPIRone HCL 10 MG TABLET PO (09:58)
[2022-12-30] MEDS: POLYSACCHARIDE IRON COMPLEX 150 MG CAPSULE PO (09:58)
[2022-12-30] MEDS: MULTIVIT/MIN/PREN/FOL AC/IRON TABLET 1 TAB PO (09:58)
[2022-12-30] MEDS: DOCUSATE SODIUM 100 MG CAPSULE PO (09:58)
[2022-12-31 09:12] VITALS: BP 115/76; PULSE 92; RESP 18; TEMP 36.7; O2SAT 100
== END 2022-12-30 10:19 | disposition home or self-care (01) | DRG 540 ==
LOC: ANHOB2 12-30 07:57 → ANHLDR 01-01 12:34 → ANHOB2 01-01 12:34
PROVIDERS: Absent Provider Obstetrics & Gynecology; Admitting Provider Obstetrics & Gynecology; PCP Nurse Practitioner Family; Visit Provider Student in an Organized Health Care Education/Training Program
PROC: 10D00Z1 Extraction of Products of Conception, Low, Open Approach (ICD-10-PCS; CPT 59514; principal; 2022-12-27 13:30)
DX: O34.211 Maternal care for low transverse scar from previous cesarean delivery (principal); O44.13 Complete placenta previa with hemorrhage, third trimester; Z37.0 Single live birth; Z3A.37 37 weeks gestation of pregnancy; O69.81X0 Labor and delivery complicated by cord around neck, without compression, not applicable or unspecified; O90.81 Anemia of the puerperium
CPT/HCPCS: 36415; 36430; 85025; 85027; 85461; 86850; 86900; 86901; 86920; 88307; 90384; A9270; J1580; J1885; J2210; J2250; J2270; J2274; J2405; J2590; J2790; J7050; J7120; P9016

== ENCOUNTER 2024-03-11 16:04 | Outpatient (CLI) | payer BC, SELFPAY ==
--- NOTE | ~2024-03-11 | US_ITS ---
EXAMINATION: US thyroid DATE: 03/11/2024 16:44 INDICATION: Thyrotoxicosis with diffuse goiter. TECHNIQUE: Multiple ultrasound images of the thyroid were obtained. COMPARISON: Ultrasound 05/10/2022 FINDINGS: The right thyroid lobe measures 1.6 x 1.7 x 5.5 cm. The left thyroid lobe measures 4.9 x 1.4 x 1.5 c m. In the left thyroid lobe, there is a 5 mm cystic nodule (TI-RADS TR1). IMPRESSION: 1. Small benign thyroid nodule. No follow-up is needed. Reviewed, dictated and finalized at location A.
== END 2024-03-11 16:05 | disposition home or self-care (01) ==
PROVIDERS: PCP Nurse Practitioner Family; Visit Provider Internal Medicine
DX: E05.00 Thyrotoxicosis with diffuse goiter without thyrotoxic crisis or storm (principal); E04.1 Nontoxic single thyroid nodule
CPT/HCPCS: 76536

== ENCOUNTER 2025-04-13 18:41 | Observation (INO) | payer BC, SELFPAY ==
[2025-04-13] VITALS (12 sets, daily range): BP systolic 98–113; BP diastolic 53–81; PULSE 77–104; TEMP 36.8; O2SAT 99–100; BMI 29.1
--- OUTSIDE RECORDS SUMMARY | 2025-04-13 18:50 | XMS_ITS | Clinical Summary ---
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 This disclosure is being madepursuant to the Care Everywhere program and may not contain all information available regarding this patient. Last updated 18.[facility] Allergies Active Allergy Reactions Criticality Noted Date Comments Amoxicillin Shortness of Breath,Rash High 07/03/2022 Penicillins Urticaria,Shortness of Breath High 07/03 Medications * Be aware that medications may not be up to date on this document. Alwaysverify current medications with the patient. propylthiouraci l 50 MG tablet Take 2 (two) tablets by mouth every 8 hours Active busPIRone (Buspar) 10 MG tablet Take 1 (one) tablet by mouth 2 times daily Active labetalol (Normodyne; Trandate) 100 MG tablet Take 1 (one) tablet by mouth every 12 hours Active Vit-DSS-Fe Fum-FA ( vitamin with iron) tablet Take 1 (one) tablet by mouth once daily Active aspirin EC (Ecotrin) 81 MG tabletIndicatio ns:Preeclampsia Take 1 (one) tablet by mouth once daily Reasons: Increased Blood Pressure and Edema During Active Active Problems Problem Noted Date Diagnosed Date History of delivery 07/18/2022 Graves disease 07/03/2022 Overview (08/01/2022): New Diagnosis approx 1 month ago. Well controlled on PTU and labetolol. Cardiac records: EK02/2021: sinus tachycardia, right atrial enlargement, decreasing R wave progression, may be secondary to left ventricular hypertrophy, ST depression + non-specific T abnormality, seen with left ventricular hypertrophy, abnormal Echo not received: requested again 08/01/22 Holter monitor: sinus tachycardia, no ectopics were documented, minimum heart trate 73, maximum heart rate 136, 02/20/21 Estimated Date of Delivery Comme nts Yes 06/27/2025 Based on last me nstrual period of 09/20/2024 Resolved Problems Problem Noted Date Diagnosed Date Resolved Date 14 weeks gestation of 07/18/2022 07/18/2022 Family History Medical History Relation Name Comments Diabetes - Type 2 Father Hypertension Father Hypertension Mother Thyroid Disease Sister Relation Name Status Comments Father Alive Mother Alive Sister Alive Social History Tobacco Use Types Packs/Day Years Used Date Smoking Tobacco: Never Smokeless Tobacco: Never Alcohol Use Standard Drinks/Week Comments Never 0 (1 standard drink = 0.6 oz pur e alcohol) [place] Depression Scale Answer Date Recorded [place] Depression Scale Total 9 07/18/2022 The thought of harming myself has occurred to me . Never 07/18/2022 Education Answer Date Recorded What is the highest level of school you have completed or the highest degree you have received? 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 Not on file Not on file Not on file Last Filed Vital Signs Vital Sign Reading Time Taken Comments Blood Pressure 104/60 12/30/2024 11:33 AM CDT Pulse 86 12/30/2024 11:33 AM CDT Temperature - - Respiratory Rate - - Oxygen Saturation 100% 11/26/2022 9:52 AM CDT Inhaled Oxygen Concentration - - Weight 53.1 kg (117 lb) 12/30/2024 11:33 AM CDT Height 154.9 cm (5' 1) 12/30/2024 11:33 AM CDT Body Mass Index 22.11 12/30/2024 11:33 AM CDT Plan of Treatment Health Maintenance Due Date Last Done Comments HIV SCREENING 12/18/2006 HEPATITIS C SCREENING 12/14/2009 DTAP/TDAP/TD VACCINES (1 - Tdap) 12/18/2010 HEPATITIS B VACCINE (1 of 3 - 19+ 3-dose series) 12/18/2010 PAP SMEAR 12/18/2012 HPV VACCINE (1 - 3-dose SCDM series) 12/18/2018 DEPRESSION SCREENING 06/10/2024 COVID-19 VACCINE (1 - 2023-2 5 season) 2025 INFLUENZA VACCINE (#1) 2025 04/24/2018 OB-ONE HOUR GLUCOSE 03/21/2025 OB-TDAP CURRENT 03/28/20252019, 04/08/2018 OB-RHOGAM INJECTION 04/04/2025 04/08/2018, 02/03/2018 Respiratory Syncytial Virus (RSV) Vaccine Pt: or over 60 yrs (1 - Risk 1-dose series) 05/02/2025 ZOSTER VACCINE (1 of 2) 12/18/2041 HIB VACCINE Aged Out No longer eligi ble based on patient's age to complete this topic MENINGOCOCCAL (Group B) VACCINE SHARED DECISION-MAKING Aged Out No longer eligible based on patient's age to complete this topic MENINGOCOCCAL GROUPS A/C/Y/W VACCINE Aged Out No longer eligible b ased on patient's age to complete this topic PNEUMOCOCCAL VACCINE Aged Out No long er eligible based on patient's age to complete this topic Insurance ANTH * Guarantor: [employer] Account Type Relation to Patient Date of Phone Billing Address Personal/Family Spouse
--- OUTSIDE RECORDS SUMMARY | 2025-04-13 18:50 | XMS_ITS | Clinical Summary ---
Author Organization [address] Address [address] [address] Care Team Providers Care Mend Worker Name Role Phone Cecil Dowling MD Primary Care Provider [phone] No, Physician Unavailable Allergies Active Allergy Reactions Criticality Noted Date Comments Amoxicillin Hives,Itching Medium 08/24/2019 Penicillins Hives,Itching Medium 08/24/2019 Medications labetaloL (NORMODYNE,TRA NDATE) 100 mg tablet Take 0.5 tablets (50 mg total) by mouth 2 (two) times a day Active methIMAzole (TAPAZOLE) 5 mg tablet Take 1 tablet (5 mg total) by mouth daily Active fluticasone propionate (FLONASE) 50 mcg/actuation nasal sprayIndicatio ns:Acute effusion of both middle ears Administer 2 sprays into each nostril daily 1 each 5 Active Additional Information Patient not taking.Reported on 03/15/2025 acetaminophen ER (TYLENOL) 650 mg 8 hr tablet Take 1 tablet (650 mg total) by mouth 2 (two) times a day as needed for pain 60 tablet 5 Active Additional Information Patient not taking.Reported on 03/15/2025 diphenhydrAMIN E (BENADRYL) 12.5 mg chewable tablet Take 1 tablet (12.5 mg total) by mouth every 6 (six) hours as needed for allergies 30 tablet 5 Active Additional Information Patient not taking.Reported on 03/15/2025 tobramycin (TOBREX) 0.3 % ophthalmic ointment Apply to left eye 3 (three) times a day 3.5 g 5 Active tobramycin (TOBREX) 0.3 % ophthalmic ointmentIndica tions:Abrasion of left cornea, initial encounter Apply to left eye 3 (three) times a day 3.5 g 5 03/15/20 25 Discontin ued(Error ) Active Problems Estimated Date of Delivery Comme nts Yes 06/27/2025 No known active problems Encounters Date Type Department Care Team Description 03/15/2025 8:30 AM CDT Office Visit [facility] [place] [address] [place] [address] Justine Moreno, ADEBAYO Abrasion of left cornea, initial encounter (Primary Dx) from Last 3 Months Immunizations Immunization Administration Dates Next Due Influenza, Unspecified 06/10/2020(Deferr ed: Patient Refused),06/10/2019(Deferred: Patient Refused) Surgical History Surgery Date Site/Laterality Comments SECTION 06/10/2017 - 06/09/2018 Social History Tobacco Use Types Packs/Day Years Used Date Smoking Tobacco: Never Smokeless Tobacco: Never Tobacco Cessation:Counseling Given: Not Answered Alcohol Use Standard Drinks/Week Comments Not Currently 0 (1 standard drink = 0.6 oz pur e alcohol) Estimated Date of Delivery Comme nts Yes 06/27/2025 Sex and Gender Information Value Date Recorded Sex Assigned at Not on file Legal Sex Female 4:11 PM CDT Gender Identity Not on file Sexual Orientation Not on file Obstetrics History Para Term AB IAB SAB Ectopic Multiple Livin g Live Births 1 Date Outcome GA Total Labor Labor/2nd/3rd Weight Sex Type Anes PTL Kelly A1 A5 Name Clin Current Last Filed Vital Signs Vital Sign Reading Time Taken Comments Blood Pressure 130/74 03/15/2025 8:17 AM CDT Pulse 99 03/15/2025 8:17 AM CDT Temperature 36.1 C (97 F) 03/15/2025 8:17 AM CDT Respiratory Rate 17 03/15/2025 8:17 AM CDT Oxygen Saturation 98% 03/15/2025 8:17 AM CDT Inhaled Oxygen Concentration - - Weight 56.7 kg (125 lb) 03/15/2025 8:17 AM CDT Height 154.9 cm (5' 1) 03/15/2025 8:17 AM CDT Body Mass Index 23.62 03/15/2025 8:17 AM CDT Plan of Treatment Health Maintenance Due Date Last Done Comments Cervical Cancer Screening 1991 Depression Screening 1991 Hepatitis C Screening 1991 Varicella Vaccines (1 of 2 - 13+ 2-dose series) 12/18/2004 Hepatitis B Screening 12/18/2009 Regular Well Visit/Exam 18-64 12/18/2009 HPV Vaccines (1 - 3-dose SCD M series) 12/18/2018 Influenza Vaccine (#1) 2025 04/24/2018 DTaP/Tdap/Td Vaccine (3 - Td or Tdap) 09/03/2029 09/04/2019, 04/08/2018 Pneumococcal vaccine <65 Aged Out No longer eligible based on patient's age to complete this topic Insurance [facility] [place] PPO [place] Care Teams Mend Worker Relationship Specialty Start Date End Date Cecil Dowling MD [address] [place] [address] PCP - General Family Medicine 11/23/20 No, Physician 11/23/20
[2025-04-13 19:46] LABS: Add Urine Microscopic? YES; Appearance Urine Clear (Clear); Glucose Urine UA Negative (Negative); Leukocyte Esterase Ur Trace LEU/UL (Negative); Need Manual Microscopic Reviewed; Nitrate Urine Negative (Negative); Non Pathogenic Casts 0-2; Specific Grav Ur 1.027 (1.001-1.035)
--- NOTE | 2025-04-13 19:47 | PC.NURSE ---
Patient arrives to OB unit with complaints of contractions. Patient states that she felt like she had some here and there yesterday, but today around noon, they started getting to be about one contraction an hour, and then soon after, they became very close together. Patient denies any vaginal bleeding or leaking of fluid. Patient states she is a repeat c-sectionx3 and has a placenta previa this . Patient states she was sick the past couple weeks, but is no longer sick, but still has a lingering cough that has been going on. Patient states that every time she coughs, see feels like her stomach tightens and stays tight. Patient states because she has been sick, she has not been drinking much water and that she has been trying to rest as much as possible. Patient states she has had some white creamy vaginal discharge, but that has been going on for a while. Patient is a . Patient's abdomen is soft to palpation. Patient states she has great movement.
--- NOTE | 2025-04-13 19:58 | PC.NURSE ---
RN notified Dr. Albrecht of patient arrival and patient complaints. RN notified MD of FHT tracing as well as uterine activity. RN notified MD of the two contractions in an hour that the patient has had. RN also notified MD of urine results, as well as the patient's cough. MD gave orders to d/c patient with medication (see D/C instructions), as well as recommending the patient a belly band. MD also gave instructions to discharge the patient.
--- NOTE | 2025-04-14 13:34 | P.PNOB_ITS ---
OB - Triage/Final Diagnosis Visit Information Comments/Additional reasons for admission: I have assessed the risk for this patient, Janene Bishop, and determined that she would benefit from observation care. Evaluation Laboratory results: Laboratory Tests 04/13/25 19:07 Urine Color Yellow Urine Appearance Clear Urine pH 7.0 Ur Specific [place] 1.027 Urine Protein Trace Urine Glucose (UA) Negative Urine Ketones Trace H Ur Blood (Man) Negative Urine Nitrate Negative Urine Bilirubin Negative Urine Urobilinogen 2.0 H Add Ur Microanalysis Reviewed Leukocyte Esterase Rfl Trace H Urine RBC 0-2 Urine WBC 0-5 Ur Squamous Epith Cells None seen Calcium Oxalate Crystal Present Urine Bacteria None seen Urine Casts 0-2 Vital signs: Vital Signs - 24 hr 04/13/25 18:54 04/13/25 18:55 04/13/25 19:00 Temperature 98.3 F Pulse Rate 89 Blood Pressure 100/53 L Pulse Oximetry 100 99 04/13/25 19:05 04/13/25 19:10 04/13/25 19:15 Temperature Pulse Rate 98 Blood Pressure 112/64 Pulse Oximetry 99 100 99 04/13/25 19:20 04/13/25 19:25 04/13/25 19:30 Temperature Pulse Rate 93 Blood Pressure 113/59 L Pulse Oximetry 100 99 100 04/13/25 19:35 04/13/25 20:04 04/13/25 20:05 Temperature Pulse Rate 83 Blood Pressure 98/81 L Pulse Oximetry 100 99 100 Final Diagnosis (1) Abdominal pain affecting : Code(s): O26.899 - Other specified related conditions, unspecified trimester; R10.9 - Unspecified abdominal pain Status: Acute
== END 2025-04-13 20:27 | disposition home or self-care (01) ==
PROVIDERS: Admitting Provider Obstetrics & Gynecology; Visit Provider Obstetrics & Gynecology
DX: O26.899 Other specified pregnancy related conditions, unspecified trimester (principal); Z3A.29 29 weeks gestation of pregnancy
CPT/HCPCS: 36415; 81001; 85025; 85461; 86593; 86703; 86850; 86900; 86901; G0378; G0379; G0432

== ENCOUNTER 2025-05-04 09:02 | Observation (INO) | payer BC, SELFPAY ==
[2025-05-04] VITALS (60 sets, daily range): BP systolic 99–148; BP diastolic 56–90; PULSE 78–137; RESP 18; TEMP 36.8–36.9; O2SAT 97–100; BMI 23.7
--- NOTE | ~2025-05-04 | US_ITS ---
US OB limited 05/04/2025 11:18 Indication: Cervical length Procedure: High-resolution Limited obstetrical ultrasound Comparison: No prior studies for comparison. Findings: There is a single living intrauterine in vertex presentation. heart rate 145 BPM. Placenta is posterior and covers the internal os, consistent with previa. Amniotic fluid index is normal measuring 12.4 cm. Cervical length is 4 cm. Impression: 1: Single living intrauterine in vertex presentation. 2: Posterior placenta with previa. Cervical length 4 cm. 3: ARIADNA normal measuring 12.4 cm. Reviewed, dictated and finalized at location [facility] Impression: 1: Single living intrauterine in vertex presentation. 2: Posterior placenta with previa. Cervical length 4 cm. 3: ARIADNA normal measuring 12.4 cm.
--- OUTSIDE RECORDS SUMMARY | 2025-05-04 09:38 | XMS_ITS | Clinical Summary ---
Author Organization [facility] Address [address] [place] [address] Care Team Providers Care Adult Nurse Practitioner Name Role Phone Unavailable Primary Care Provider Unavailabl e Source Comments [facility],non-owned Affiliates and Associated Physician Practices is amultiple site organization consisting of ambulatory clinics and hospital sitesin [place], [place], [place] and [place]. This disclosure is being madepursuant to the Care Everywhere program and may not contain all information available regarding this patient. Last updated 18.[facility] Allergies Active Allergy Reactions Criticality Noted Date [...] drink = 0.6 oz pur e alcohol) [place] Depression Scale Answer Date Recorded [place] Depression Scale Total 9 07/18/2022 The thought [...] of 3 - 19+ 3-dose series) 12/18/2010 Cervical Cancer Screening 12/18/2012 PAP SMEAR 12/18/2012 HPV VACCINE (1 - 3-dose SCDM series) 12/18/2018 PAP with HPV 12/18/2021 DEPRESSION SCREENING 06/10/2024 COVID-19 VACCINE (1 - 2024-2 6 season) 2025 INFLUENZA VACCINE (#1) 2025 04/24/2018 [...] patient's age to complete this topic Insurance KARLEE * Guarantor: [employer] Account Type Relation to Patient Date of Phone Billing Address Personal/Family Spouse
--- OUTSIDE RECORDS SUMMARY | 2025-05-04 09:38 | XMS_ITS | Clinical Summary ---
Author Organization [address] Address [address] [place] [address] Care Team Providers Care Derrick Worker Well Service Name Role Phone Cecil Dowling MD Primary Care Provider [phone] No, Physician Unavailable Allergies Active Allergy Reactions Criticality Noted Date Comments Amoxicillin Hives,Itching Medium 08/24/2019 Penicillins Hives,Itching Medium 08/24/2019 Medications labetaloL (NORMODYNE,HUBER DATE) 100 mg tablet Take 0.5 tablets (50 mg total) by mouth 2 (two) times a day Active methIMAzole (TAPAZOLE) 5 mg tablet Take 1 tablet (5 mg total) by mouth daily Active fluticasone propionate (FLONASE) 50 mcg/actuation nasal sprayIndication s:Acute effusion of both middle ears Administer 2 sprays into each nostril daily 1 each 5 Active Additional Information Patient not taking.Reported on 03/15/2025 acetaminophen ER (TYLENOL) 650 mg 8 hr tablet Take 1 tablet (650 mg total) by mouth 2 (two) times a day as needed for pain 60 tablet 5 Active Additional Information Patient not taking.Reported on 03/15/2025 diphenhydrAMINE (BENADRYL) 12.5 mg chewable tablet Take 1 tablet (12.5 mg total) by mouth every 6 (six) hours as needed for allergies 30 tablet 5 Active Additional Information Patient not taking.Reported on 03/15/2025 tobramycin (TOBREX) 0.3 % ophthalmic ointment Apply to left eye 3 (three) times a day 3.5 g 10/06/202 5 Active Active Problems Estimated Date of Delivery Comme nts Yes 06/27/2025 No known active problems Encounters Date Type Department Care Team Description 03/15/2025 8:30 AM CDT Office Visit [facility] [place] [address] [place] [address] Justine Moreno, ADEBAYO Abrasion of left cornea, [...] patient's age to complete this topic Insurance [facility] BL CHOICE PRF PPO [place] Care Teams Derrick Worker Well Service Relationship Specialty Start Date End Date Cecil Dowling MD [address] [place] [address] PCP - General Family Medicine 11/23/20 No, Physician 11/23/20
--- NOTE | 2025-05-04 09:50 | OBADM ---
This patient, Janene Bishop, admitted to the OB room 116 for observation. Patient/family oriented to hospital policies and general routines including ID bracelet, bed and alarms, visiting hours, pain management, procedures, bathroom and other care routines, personal items, smoking policy, room service/diet, and visiting hours. Patient/Family are encouraged to report perceived risks to care and to ask questions if they do not understand what they are told or what they should do.
--- NOTE | 2025-05-04 11:45 | PM.OBTRLD ---
OB - Triage/Final Diagnosis Visit Information Date of evaluation: 05/04/25 Reason for evaluation: other (bleeding) Comments/Additional reasons for admission: I have assessed the risk for this patient, Janene Bishop, and determined that she would benefit from observation care. Evaluation Vital signs: Vital Signs - 24 hr 05/04/25 09:20 05/04/25 09:25 05/04/25 09:30 Temperature 98.3 F Pulse Rate 82 82 Respiratory Rate 18 Blood Pressure 114/63 110/56 L Pulse Oximetry 100 100 100 Oxygen Delivery 05/04/25 09:35 05/04/25 09:36 05/04/25 09:37 Temperature Pulse Rate Respiratory Rate Blood Pressure Pulse Oximetry 100 99 98 Oxygen Delivery 05/04/25 09:42 05/04/25 09:44 05/04/25 09:47 Temperature Pulse Rate Respiratory Rate Blood Pressure Pulse Oximetry 100 100 Oxygen Delivery Room Air 05/04/25 09:52 05/04/25 09:57 05/04/25 10:00 Temperature Pulse Rate 85 Respiratory Rate Blood Pressure 112/67 Pulse Oximetry 100 100 Oxygen Delivery 05/04/25 10:02 05/04/25 10:07 05/04/25 10:10 Temperature Pulse Rate Respiratory Rate 18 Blood Pressure Pulse Oximetry 100 100 Oxygen Delivery 05/04/25 10:12 05/04/25 10:17 05/04/25 10:22 Temperature Pulse Rate Respiratory Rate Blood Pressure Pulse Oximetry 100 99 99 Oxygen Delivery 05/04/25 10:27 05/04/25 11:14 05/04/25 11:16 Temperature Pulse Rate 80 Respiratory Rate Blood Pressure 106/69 Pulse Oximetry 100 100 Oxygen Delivery 05/04/25 11:19 05/04/25 11:24 05/04/25 11:29 Temperature Pulse Rate Respiratory Rate Blood Pressure Pulse Oximetry 100 100 100 Oxygen Delivery 05/04/25 11:34 05/04/25 11:37 05/04/25 11:42 Temperature Pulse Rate Respiratory Rate Blood Pressure Pulse Oximetry 100 100 100 Oxygen Delivery
[2025-05-04] MEDS: TERBUTALINE SULFATE 1 MG/ML VIAL 0.25 MG SUB-Q (13:21)
--- NOTE | 2025-05-04 13:25 | PM.IMHP ---
H&P: HPI History of Present Illness Date/Time: 05/04/25 13:25 Chief Complaint: vaginal bleeding with placenta previa intrauterine Narrative: 34-year-old who presents at 32 weeks with complaint of vaginal bleeding. Patient has known posterior placenta previa. Patient states this morning she noticed passing a blood clot in the toilet. She has continued to have spotting. Patient was noted to have contractions on tocometer. Patient reports feeling them as mild tightening. also complicated by 3 prior C-sections. She also has history of hyperthyroidism. She is not on any medications. Thyroid studies have been monitored monthly. Review of Systems Cardiovascular: Cardiovascular: Denies chest pain, Denies leg edema, Denies palpitations, Denies dyspnea and Denies dyspnea on exertion Respiratory: Respiratory: Denies cough, Denies dyspnea and Denies dyspnea on exertion Gastrointestinal: Gastrointestinal: Denies abdominal pain, Denies constipation, Denies diarrhea, Denies nausea and Denies vomiting Genitourinary: Genitourinary: Denies hematuria, Denies urinary frequency, Denies dysuria, Denies pelvic pain, Denies urinary incontinence and Denies vaginal discharge Neurologic: Reports system reviewed and no additional complaints, except as documented Psychiatric: Psychiatric: Reports no additional psychiatric complaints Endocrine: Endocrine: Denies palpitations PMFSH Past Medical History Medical History Suppression of menses Thyroid disease Hyperlipidemia Anxiety Healthy female adult Surgical History Surgical History Delivery by section (12/27/22) Delivery by section (09/02/19) Delivery by section (04/07/18) Family History Family History Sibling Graves disease Alex's disease Grandparent Heart disease Hypertension Father Asthma Mother Hypertension Other Unknown family medical history Social History Social History Smoking status: Never smoker Second hand tobacco smoke exposure: Yes Alcohol intake: never Substance use: never Substance use type: does not use Do You Feel Safe in your Home?: Yes Lack of Transportation: No Lack of Food: Never True Current Housing: I Have Housing Concerned About Future Housing: No Difficulty Paying Gas/Electric Bills: No Difficulty Paying for Meds: No Currently Unemployed: No Education: High School Diploma/GED Difficulty w/ Childcare or Family Care: No Living arrangements: with family Additional living arrangements comments: Occupation/Education: 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 Gender identity (if verbalized by the patient): Female Sexual Orientation (if Verbalized by the Patient): Straight or Heterosexual Spiritual care concerns: No Meds Home Medications and Allergies Home Medications ?Medication ?Instructions ?Recorded ?Confirmed ?Type vits no.126-ferrous fum 1 tablet PO DAILY 01/06/25 05/04/25 History 28 mg iron-folic acid 800 mcg tablet (Classic ) ondansetron 4 mg disintegrating 4 mg PO Q6H PRN nausea and 04/09/25 05/04/25 Rx tablet vomiting #20 tabs famotidine 20 mg tablet (Acid 20 mg PO DAILY PRN heartburn 05/04/25 05/04/25 History Controller) Allergies Allergy/AdvReac Type Severity Reaction Status Date / Time Penicillins Allergy Severe Hives Verified 05/04/25 09:46 amoxicillin Allergy Intermediate Hives Verified 05/04/25 09:46 Vital Signs Vital Signs - 24 hr 05/04/25 09:20 05/04/25 09:25 05/04/25 09:30 Temperature 98.3 F Pulse Rate 82 82 Respiratory Rate 18 Blood Pressure 114/63 110/56 L Pulse Oximetry 100 100 100 Oxygen Delivery 05/04/25 09:35 05/04/25 09:36 05/04/25 09:37 Temperature Pulse Rate Respiratory Rate Blood Pressure Pulse Oximetry 100 99 98 Oxygen Delivery 05/04/25 09:42 05/04/25 09:44 05/04/25 09:47 Temperature Pulse Rate Respiratory Rate Blood Pressure Pulse Oximetry 100 100 Oxygen Delivery Room Air 05/04/25 09:52 05/04/25 09:57 05/04/25 10:00 Temperature Pulse Rate 85 Respiratory Rate Blood Pressure 112/67 Pulse Oximetry 100 100 Oxygen Delivery 05/04/25 10:02 05/04/25 10:07 05/04/25 10:10 Temperature Pulse Rate Respiratory Rate 18 Blood Pressure Pulse Oximetry 100 100 Oxygen Delivery 05/04/25 10:12 05/04/25 10:17 05/04/25 10:22 Temperature Pulse Rate Respiratory Rate Blood Pressure Pulse Oximetry 100 99 99 Oxygen Delivery 05/04/25 10:27 05/04/25 11:14 05/04/25 11:16 Temperature Pulse Rate 80 Respiratory Rate Blood Pressure 106/69 Pulse Oximetry 100 100 Oxygen Delivery 05/04/25 11:19 05/04/25 11:24 05/04/25 11:29 Temperature Pulse Rate Respiratory Rate Blood Pressure Pulse Oximetry 100 100 100 Oxygen Delivery 05/04/25 11:34 05/04/25 11:37 05/04/25 11:42 Temperature Pulse Rate Respiratory Rate Blood Pressure Pulse Oximetry 100 100 100 Oxygen Delivery 05/04/25 11:46 05/04/25 11:48 05/04/25 11:53 Temperature Pulse Rate Respiratory Rate Blood Pressure Pulse Oximetry 100 100 100 Oxygen Delivery 05/04/25 11:55 05/04/25 12:00 05/04/25 12:05 Temperature Pulse Rate Respiratory Rate Blood Pressure Pulse Oximetry 100 100 100 Oxygen Delivery 05/04/25 12:10 05/04/25 12:15 05/04/25 12:16 Temperature Pulse Rate Respiratory Rate Blood Pressure Pulse Oximetry 100 98 98 Oxygen Delivery 05/04/25 12:21 05/04/25 12:24 05/04/25 12:26 Temperature Pulse Rate 96 Respiratory Rate Blood Pressure 148/86 H Pulse Oximetry 99 100 Oxygen Delivery 05/04/25 13:18 05/04/25 13:23 Temperature Pulse Rate 129 H Respiratory Rate Blood Pressure 128/90 Pulse Oximetry 100 100 Oxygen Delivery Exam Const: General: no acute distress Eyes: EOM: EOMs intact bilaterally Neck: Neck: supple Thyroid: thyroid normal Chest: Breast/axilla inspection: normal inspection of the breasts Breast/axilla palpation: normal palpation of the breasts, normal palpation of the axillae and no axillary lymphadenopathy Resp: Effort & Inspection: normal respiratory effort Auscultation: clear to auscultation bilaterally Cardio: Rate: regular rate Rhythm: regular rhythm GI: Inspection: non-distended and other (Gravid) GI Palp: Yes Soft to palpation, No Tenderness to palpation present (GI) and No Guarding due to palpation present (GI) Auscultation: normal bowel sounds : Speculum Exam - Vagina: No vaginal bleeding OB/external & speculum: external exam normal; No vaginal bleeding Skin: General skin exam: normal color and no rashes or lesions noted Neuro: Cognition (Neuro): normal cognition Speech: normal speech Extrem: General: normal to inspection Psych: Mental Status: mental status grossly normal Affect: normal affect Assessment and Plan Assessment and plan (1) Placenta previa affecting delivery: Code(s): O44.00 - Complete placenta previa NOS or without hemorrhage, unspecified trimester Status: Acute Assessment and Plan: 34-year-old who presents at 32 weeks with vaginal bleeding Presented with complaints of vaginal bleeding starting this morning Patient has had light spotting while on Labor and delivery Ultrasound confirmed posterior placenta previa Cervical length measured 4 cm heart tones reassuring Patient received terbutaline for contractions Given vaginal bleeding in the setting of placenta previa at 32 weeks, recommended transfer to [facility] for observation Discussed plan of care with [facility] who accepts the transfer (2) Previous section: Code(s): Z98.891 - History of uterine scar from previous surgery Status: Acute Assessment and Plan: Prior x3 (3) Supervision of high risk , unspecified, third trimester: Code(s): O09.93 - Supervision of high risk , unspecified, third trimester Status: Acute (4) Uterine contractions: Code(s): O47.9 - False labor, unspecified Status: Acute
[2025-05-04] MEDS: BETAMETHASONE SOD PHOS/ACETATE 30 MG/5 ML VIAL 12 MG IM (13:30)
--- NOTE | 2025-05-05 09:55 | PM.TDS ---
Transfer Discharge Sum: Prov Provider Date of admission: 05/04/25 09:02 Primary care physician: [facility] Admitting clinician: Quintin Mejias MD Attending physician on admission: Quintin Mejias Consults: [facility] Discharging clinician: Quintin Mejias Anticipated date of transfer: 05/04/25 DS: Admitting Diagnosis Discharge Date 05/04/25 Admitting Diagnosis vaginal bleeding placenta previa DS: Discharge Diagnosis Discharge Diagnosis (1) Uterine contractions: Code(s): O47.9 - False labor, unspecified Status: Acute (2) Placenta previa: Code(s): O44.00 - Complete placenta previa NOS or without hemorrhage, unspecified trimester Status: Acute (3) Supervision of high risk , unspecified, third trimester: Code(s): O09.93 - Supervision of high risk , unspecified, third trimester Status: Acute Transfer Discharge Sum: Med Medications Active and Home Medications: Home Medications vits no.126-ferrous fum 28 mg iron-folic acid 800 mcg tablet (Classic ) 1 tablet PO DAILY 01/06/25 [History Confirmed 05/04/25] ondansetron 4 mg disintegrating tablet 4 mg PO Q6H PRN nausea and vomiting #20 tabs 04/09/25 [Rx Confirmed 05/04/25] famotidine 20 mg tablet (Acid Controller) 20 mg PO DAILY PRN heartburn 05/04/25 [History Confirmed 05/04/25] Transfer Discharge Sum: Hosp Hospital Course Hospital course: Janene Bishop is a 34 year old female who presented with vaginal bleeding in the setting of placenta previa at 32 weeks. She developed contractions while on Labor and delivery. She was transferred to [facility] for observation at a higher acuity hospital. Patient Condition: Stable Time Spent with Patient Time attestation: Total time spent providing and/or coordinating transfer services: Total time spent: Greater than 30 minutes Exam Const: General: comfortable and no acute distress Resp: Effort & Inspection: normal respiratory effort Cardio: Rate: regular rate GI: GI Palp: Yes Soft to palpation and No Tenderness to palpation present (GI) Psych: Mental Status: mental status grossly normal
== END 2025-05-04 15:46 | disposition short-term general hospital (02) ==
LOC: ANHOBPP 05-05 07:48
PROVIDERS: Admitting Provider Student in an Organized Health Care Education/Training Program; Visit Provider Student in an Organized Health Care Education/Training Program
DX: O44.13 Complete placenta previa with hemorrhage, third trimester (principal); O47.03 False labor before 37 completed weeks of gestation, third trimester; Z3A.32 32 weeks gestation of pregnancy; Z98.891 History of uterine scar from previous surgery
CPT/HCPCS: 76815; 96372; G0378; G0379; J0702; J3105

== ENCOUNTER 2025-06-04 11:40 | Observation (INO) | payer BC, SELFPAY ==
[2025-06-04] VITALS (31 sets, daily range): BP systolic 99–150; BP diastolic 54–85; PULSE 54–92; RESP 14–19; TEMP 36.3–36.6; O2SAT 97–100
--- NOTE | ~2025-06-04 | US_ITS ---
EXAMINATION: US pelvic complete INDICATION: Bleeding. 4 weeks post . Placenta previa. Comparison:No prior studies for comparison. TECHNIQUE: Multiple transabdominal sonographic images of the pelvis performed. FINDINGS: The uterus measures 10.6 x 4.9 x 6.4 cm. The endometrial complex is thickened and heterogeneous measuring up to 3.4 cm with internal vascularity, consistent with retained products of conception. The right ovary measures 2.2 x 2.7 x 1.8 cm and the left ovary measures 2.7 cm. There are small follicles in each ovary. Normal doppler signal in both ovaries. There is no free fluid in the pelvis. There are no abnormal masses seen on either side. IMPRESSION: 1. Thickened heterogeneous endometrium with increased vascularity, consistent with retained products of conception. Reviewed, dictated and finalized at location O. [employer] IMPRESSION: 1. Thickened heterogeneous endometrium with increased vascularity, consistent w ith retained products of conception.
--- OUTSIDE RECORDS SUMMARY | 2025-06-04 11:43 | XMS_ITS | Clinical Summary ---
Author Organization [facility] Address [address] [place] [address] Care Team Providers Care Legislative Director Name Role Phone Unavailable Primary Care Provider Unavailabl e Source Comments [facility],non-owned Affiliates and Associated Physician Practices is amultiple site organization consisting of ambulatory clinics and hospital sitesin [place], [place], [place] and [place]. This disclosure is being madepursuant to the Care Everywhere program and may not contain all information available regarding this patient. Last updated 18.[facility] Allergies Active Allergy Reactions Criticality Noted Date Comments Amoxicillin Shortness of Breath,Rash High 07/03/2022 Penicillins Urticaria,Shortness of Breath High 07/03 Medications * Be aware that medications may not be up to date on this document. Alwaysverify current medications with the patient. Vit-DSS-Fe Fum-FA ( vitamin with iron) tablet Take 1 (one) tablet by mouth once daily Active ferrous sulfate 325 (65 FE) MG tablet Take 1 (one) tablet by mouth once daily 60 tablet 2 5 Active polyethylene glycol 3350 (Miralax) 17 GM/SCOOP powder Take 17 (seventeen) g by mouth once daily 119 g 5 Active ibuprofen (Motrin) 600 MG tablet Take 1 (one) tablet by mouth every 6 hours as needed for pain 56 tablet 1 5 Active naloxone HCl (Narcan) 4 MG/0.1ML nasal spray [place] 1 (one) spray into the nose as needed (May repeat every 2 min in alternating nostrils until emergency medical help arrives for overdose) 2 Each 5 Active plus iron (Natatab) 29-1 MG tablet Take 1 (one) tablet by mouth once daily 100 tablet 1 5 Active oxyCODONE, immediate release, (Roxicodone) 5 MG tabletIndicati ons:Post-opera tive state Take 1 (one) tablet by mouth every 4 hours as needed for pain 12 tablet 5 Active Additional Information Patient not taking.Reported on 05/17/2025 acetaminophen (Tylenol) 500 MG capsule Take 2 (two) capsules by mouth every 6 hours as needed for fever or pain 60 capsule 1 5 Active propylthiourac il 50 MG tablet Take 2 (two) tablets by mouth every 8 hours 05/09/20 25 Discontin ued(Tx Complete) busPIRone (Buspar) 10 MG tablet Take 1 (one) tablet by mouth 2 times daily 05/09/20 25 Discontin ued(List Clean-Up) labetalol (Normodyne; Trandate) 100 MG tablet Take 1 (one) tablet by mouth every 12 hours 05/09/20 25 Discontin ued(Tx Complete) aspirin EC (Ecotrin) 81 MG tabletIndicati ons:Preeclamps ia Take 1 (one) tablet by mouth once daily Reasons: Increased Blood Pressure and Edema During 05/09/20 25 Discontin ued(List Clean-Up) Active Problems Problem Noted Date Diagnosed Date Vaginal bleeding in 05/04/2025 History of delivery 07/18/2022 Graves disease 07/03/2022 [...] trate 73, maximum heart rate 136, 02/20/21 Resolved Problems Problem Noted Date Diagnosed Date Resolved Date 14 weeks gestation of 07/18/2022 07/18/2022 Encounters Date Type Department Care Team Description 05/17/2025 9:03 AM TEMPORARY OFFICE ASSISTANT - 05/17/2025 11:59 PM TEMPORARY OFFICE ASSISTANT Hospital Encounter [facility]/ EVALUATION UNIT [address] [place] [address] Lora Reece APRN-PORTFOLIO ANALYST Discharge Disposition: Home or Self Care 05/17/2025 Travel 05/10/2025 Telephone [facility]ATION UNIT [address] [facility] [place] [id number] Codie Amezquita RN Hospitalization; Hospital Follow-up 05/05/2025 4:46 PM TEMPORARY OFFICE ASSISTANT Anesthesia Event [facility] [address] [place], [place] [id number] Russell Mejias MD McGee, Daniel, APRN-UNDERPRESSER HAND 05/05/2025 Parent/Baby Shared Documentation [facility] - NICU [address] [place] [address] 05/05/2025 Surgery [facility] [address] [place] [id number] Samina Glasgow MD SECTION (EMERGENCY) 05/04/2025 4:33 PM TEMPORARY OFFICE ASSISTANT - 05/09/2025 1:30 PM TEMPORARY OFFICE ASSISTANT Hospital Encounter [facility] 6W MOTHER/BABY [address] [place] [id number] Samina Glasgow MD Maternal Medicine Discharge Disposition: Home or Self Care 05/04/2025 Travel from Last 3 Months Immunizations Immunization Administration Dates Next Due MMR 05/07/2025() Rho D Immune Globulin 05/08/2025(Deferre d: Patient Refused - pt educated, residents aware),05/04/2025 TDAP (7yrs+) 05/07/2025(Deferred: Patient Ref used) Family History Medical History Relation Name Comments Diabetes - Type 2 Father Hypertension Father Hypertension Mother Thyroid Disease Sister Relation Name Status Comments Father Alive Mother Alive Sister Alive Social History Tobacco Use Types Packs/Day Years Used Date Smoking Tobacco: Never Passive Smoke Exposure: Never Smokeless Tobacco: Never Tobacco Cessation:Counseling Given: Not Answered Alcohol Use Standard Drinks/Week Comments Never 0 (1 standard drink = 0.6 oz pur e alcohol) Tippo Depression Scale Answer Date Recorded Tippo Depression Scale Total 7 05/17/2025 The thought of harming myself has occurred to me . Never 05/17/2025 Overall Financial Resource Strain (CARDIA) Answe r Date Recorded How hard is it for you to pa y for the very basics like food, housing, medical care, and heating? Not very hard 05/04/2025 [facility] Occupational Stress Questionnaire Answer Date Recorded Do you feel stress - tense, restless, nervous, or anxious, or unable to sleep at night because your mind is troubled all the time - these days? Not at all 05/04/2025 Hunger Vital Sign Answer Date Recorded Within the past 12 months, y ou worried that your food would run out before you got the money to buy more. Never true 05/04/20 25 Within the past 12 months, t he food you bought just didn't last and you didn't have money to get more. Never true 05/04/2025 PRAPARE - Transportation Answer Date Re corded In the past 12 months, has l ack of transportation kept you from medical appointments or from getting medications? No 04/11 In the past 12 months, has l ack of transportation kept you from meetings, work, or from getting things needed for daily living? No 05/04/2025 Housing Stability Vital Sign Answer Lauro e Recorded In the last 12 months, was t here a time when you were not able to pay the mortgage or rent on time? No 05/04/2025 In the past 12 months, how m any times have you moved where you were living? 1 05/04/2025 At any time in the past 12 m [facility], were you homeless or living in a retirement (including now)? No 05/04/2025 Education Answer Date Recorded What is the highest level of school you have completed or the highest degree you have received? 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 Not on file Not on file Not on file Last Filed Vital Signs Vital Sign Reading Time Taken Comments Blood Pressure 126/71 05/17/2025 9:10 AM TEMPORARY OFFICE ASSISTANT Pulse 88 05/17/2025 9:10 AM TEMPORARY OFFICE ASSISTANT Temperature 36.8 C (98.2 F) 05/09/2025 8:25 AM TEMPORARY OFFICE ASSISTANT Respiratory Rate 16 05/09/2025 8:25 AM TEMPORARY OFFICE ASSISTANT Oxygen Saturation 100% 05/09/2025 8:25 AM TEMPORARY OFFICE ASSISTANT Inhaled Oxygen Concentration - - Weight 52 kg (114 lb 9.6 oz) 05/17/2025 9:05 AM TEMPORARY OFFICE ASSISTANT Height 154.9 cm (5' 1) 05/04/2025 4:51 PM TEMPORARY OFFICE ASSISTANT Body Mass Index 21.65 05/04/2025 4:51 PM TEMPORARY OFFICE ASSISTANT Plan of Treatment Health Maintenance Due Date Last Done Comments HIV SCREENING 12/18/2006 HEPATITIS C SCREENING 12/14/2009 DTAP/TDAP/TD VACCINES (1 - Tdap) 12/18/2010 HEPATITIS B VACCINE (1 of 3 - 19+ 3-dose series) 12/18/2010 PAP SMEAR 12/18/2012 HPV VACCINE (1 - 3-dose SCDM series) 12/18/2018 DEPRESSION SCREENING 06/10/2024 COVID-19 VACCINE (1 - 2024-2 6 season) 2025 INFLUENZA VACCINE (#1) 2025 04/24/2018 ZOSTER VACCINE (1 of 2) 12/18/2041 HIB VACCINE Aged Out No longer eligi ble based on patient's age to complete this topic MENINGOCOCCAL (Group B) VACC INE SHARED DECISION-MAKING Aged Out No longer eligibl e based on patient's age to complete this topic MENINGOCOCCAL GROUPS A/C/Y/W VACCINE Aged Out No longer eligible b ased on patient's age to complete this topic PNEUMOCOCCAL VACCINE Aged Out No long er eligible based on patient's age to complete this topic Procedures Procedure Name Priority Date/Time Associated Diagnosis Comments SLIDE SCAN HEMATOLOGY Routine 05/06/2025 4:48 PM TEMPORARY OFFICE ASSISTANT CBC W AUTO DIFFERENTIAL Routine 05/06/20 4:48 PM TEMPORARY OFFICE ASSISTANT TRANSFUSE RED BLOOD CELL LEUKOREDUCED UNIT(S) Routine 05/06/2025 10:49 AM TEMPORARY OFFICE ASSISTANT TRANSFUSE RED BLOOD CELL LEUKOREDUCED UNIT(S) Routine 05/06/2025 6:27 AM TEMPORARY OFFICE ASSISTANT SCREEN Routine 05/06/2025 4:31 AM TEMPORARY OFFICE ASSISTANT CBC W/O DIFFERENTIAL AM Draw 05/06/2025 4:31 AM TEMPORARY OFFICE ASSISTANT BLOOD GASES CORD ANA (ISTAT) Routine 05/05/2025 6:09 PM TEMPORARY OFFICE ASSISTANT BLOOD GASES CORD ART (ISTAT) Routine 05/05/2025 6:06 PM TEMPORARY OFFICE ASSISTANT ENDOTRACHEAL TUBE NOTE Routine 5:25 PM TEMPORARY OFFICE ASSISTANT COAGULATION PANEL W D-DIMER STAT 05/05/2025 5:15 PM TEMPORARY OFFICE ASSISTANT COMPREHENSIVE METABOLIC PANEL STAT 05/05/2025 5:10 PM TEMPORARY OFFICE ASSISTANT CBC W/O DIFFERENTIAL STAT 05/05/2025 5:10 PM TEMPORARY OFFICE ASSISTANT PATHOLOGY TISSUE EXAM (STL) Routine 05/05/2025 5:02 PM TEMPORARY OFFICE ASSISTANT Diagnosis unknown CBC W AUTO DIFFERENTIAL STAT 05/05/20 4:40 PM TEMPORARY OFFICE ASSISTANT COAGULATION PANEL W D-DIMER STAT 05/05/2025 4:40 PM TEMPORARY OFFICE ASSISTANT Vaginal bleeding in (HCC) CULTURE STREP B STAT 05/05/2025 1:06 PM TEMPORARY OFFICE ASSISTANT COAGULATION PANEL W D-DIMER STAT 05/05/2025 12:02 PM TEMPORARY OFFICE ASSISTANT FERRITIN STAT 05/05/2025 12:02 PM TEMPORARY OFFICE ASSISTANT CBC W/O DIFFERENTIAL STAT 05/05/2025 12:02 PM TEMPORARY OFFICE ASSISTANT SONOGRAM - COMPLETE Routine 05/05/2025 8 :01 AM TEMPORARY OFFICE ASSISTANT BLOOD TYPE VERIFICATION Routine 05/04/20 7:33 PM TEMPORARY OFFICE ASSISTANT PREPARE RBC LEUKOREDUCED UNIT Routine 05/04/2025 6:22 PM TEMPORARY OFFICE ASSISTANT ANTIBODY IDENTIFICATION Routine 05/04/20 6:22 PM TEMPORARY OFFICE ASSISTANT PREPARE RBC LEUKOREDUCED UNIT Routine 05/04/2025 6:22 PM TEMPORARY OFFICE ASSISTANT TYPE + SCREEN PANEL Routine 05/04/2025 6 :22 PM TEMPORARY OFFICE ASSISTANT TSH REFLEX FREE T4 Routine 05/04/2025 6: 22 PM TEMPORARY OFFICE ASSISTANT Vaginal bleeding in (HCC) COMPREHENSIVE METABOLIC PANEL STAT 05/04/2025 6:22 PM TEMPORARY OFFICE ASSISTANT Vaginal bleeding in (HCC) CBC W AUTO DIFFERENTIAL STAT 05/04/20 6:22 PM TEMPORARY OFFICE ASSISTANT Vaginal bleeding in (HCC) COAGULATION PANEL W D-DIMER STAT 05/04/2025 6:22 PM TEMPORARY OFFICE ASSISTANT Vaginal bleeding in (HCC) KLEIHAUER BETKE STAIN STAT 05/04/2025 6:22 PM TEMPORARY OFFICE ASSISTANT Vaginal bleeding in (HCC) SECTION (EMERGENCY) Placenta previa from Last 3 Months Results * SLIDE SCAN HEMATOLOGY (05/06/2025 4:48 PM TEMPORARY OFFICE ASSISTANT) Pathologist [facility] RBC Morphology NORMAL 05/06/2025 5:20 PM TEMPORARY OFFICE ASSISTANT [facility] Blood BLOOD SPECIMEN / Unknown Lab Venipuncture / Unknown 05/06/2025 4:48 PM TEMPORARY OFFICE ASSISTANT 05/06/2025 4:51 PM TEMPORARY OFFICE ASSISTANT us Samina Glasgow MD LAB - HEMATOLOGY ORDERABLES Fin al Result [facility] [address] [place] [id number] * (ABNORMAL) CBC W AUTO DIFFERENTIAL (05/06/2025 4:48 PM TEMPORARY OFFICE ASSISTANT) Only the most recent of3 resultswithin the time period is included. WBC 14.5(H) 4.0 - 10.7 x10E9/L 05/06/2025 5:20 PM [facility] RBC Count 2.93(L) 3.90 - 5.20 x10E12/L 05/06/2025 5:20 PM [facility] Hemoglobin 8.7(L) 11.9 - 15.8 g/dL 05/06/2025 5:20 PM [facility] Hematocrit 26.4(L) 34.8 - 46.1 % 05/06/2025 5:20 PM [facility] MCV 90.1 80.0 - 98.0 fL 05/06/2025 5:20 PM [facility] MCH 29.7 26.7 - 33.6 pg 05/06/2025 5:20 PM [facility] MCHC 33.0 31.7 - 36.3 g/dL 05/06/2025 5:20 PM [facility] RDW-CV 14.3 11.3 - 14.8 % 05/06/2025 5:20 PM [facility] Platelet Count 154 150 - 420 x10E9/L 05/06/2025 5:20 PM [facility] MPV 9.4 7.8 - 11.4 fL 05/06/2025 5:20 PM [facility] Neutrophil % 74.0 41.0 - 74.0 % 05/06/2025 5:20 PM [facility] Lymphocyte % 12.9(L) 17.0 - 47.0 % 05/06/2025 5:20 PM [facility] Monocyte % 11.0 3.0 - 11.0 % 05/06/2025 5:20 PM [facility] Eosinophil % 0.1 0.0 - 7.0 % 05/06/2025 5:20 PM [facility] Basophil % 0.1 0.0 - 1.6 % 05/06/2025 5:20 PM [facility] Immature Granulocytes % 1.9(H) 0.0 - 1.0 % 05/06/2025 5:20 PM [facility] Neutrophil Absolute 10.72(H) 1.60 - 7.50 x10E9/L 05/06/2025 5:20 PM [facility] Lymphocyte Absolute 1.87 1.00 - 4.40 x10E9/L 05/06/2025 5:20 PM TEMPORARY OFFICE ASSISTANT [facility] Monocyte Absolute 1.59(H) 0.15 - 1.00 x10E9/L 05/06/2025 5:20 PM TEMPORARY OFFICE ASSISTANT [facility] Eosinophil Absolute 0.01 0.00 - 0.60 x10E9/L 05/06/2025 5:20 PM TEMPORARY OFFICE ASSISTANT [facility] Basophil Absolute 0.02 0.00 - 0.13 x10E9/L 05/06/2025 5:20 PM TEMPORARY OFFICE ASSISTANT [facility] Blood BLOOD SPECIMEN / Unknown Lab Venipuncture / Unknown 05/06/2025 4:48 PM TEMPORARY OFFICE ASSISTANT 05/06/2025 4:51 PM TEMPORARY OFFICE ASSISTANT us Samina Glasgow MD LAB - HEMATOLOGY ORDERABLES Fin al Result Performing Organization Address [facility] Co de Phone Number [facility] [address] [place] [id number] * TRANSFUSE RED BLOOD CELL LEUKOREDUCED UNIT(S) (05/06/2025 1:21 PM TEMPORARY OFFICE ASSISTANT) us Samina Glasgow MD NURSING - BLOOD PROD TRANSFUSIO N Final Result * TRANSFUSE RED BLOOD CELL LEUKOREDUCED UNIT(S) (05/06/2025 9:09 AM TEMPORARY OFFICE ASSISTANT) us Samina Glasgow MD NURSING - BLOOD PROD TRANSFUSIO N Final Result * SCREEN (05/06/2025 4:31 AM TEMPORARY OFFICE ASSISTANT) Screen Qualitative NEG 05/06/2025 6:01 AM TEMPORARY OFFICE ASSISTANT [facility] Blood Bank BLOOD SPECIMEN / Unknown Lab Venipuncture / Unknown 05/06/2025 4:31 AM TEMPORARY OFFICE ASSISTANT 05/06/2025 4:43 AM TEMPORARY OFFICE ASSISTANT us Samina Glasgow MD LAB - BLOOD BANK ORDERABLES Fin al Result Performing Organization Address City/[facility]/ZIP Co de Phone Number [facility] [address] [place], [place] [address] [phone] * (ABNORMAL) CBC W/O DIFFERENTIAL (05/06/2025 4:31 AM TEMPORARY OFFICE ASSISTANT) Only the most recent of3 resultswithin the time period is included. WBC 14.4(H) 4.0 - 10.7 x10E9/L 05/06/2025 4:58 AM [facility] RBC Count 1.94(L) 3.90 - 5.20 x10E12/L 05/06/2025 4:58 AM [facility] Hemoglobin 5.8(LL) 11.9 - 15.8 g/dL 05/06/2025 4:58 AM [facility] Hematocrit 18.0(L) 34.8 - 46.1 % 05/06/2025 4:58 AM [facility] MCV 92.8 80.0 - 98.0 fL 05/06/2025 4:58 AM [facility] MCH 29.9 26.7 - 33.6 pg 05/06/2025 4:58 AM [facility] MCHC 32.2 31.7 - 36.3 g/dL 05/06/2025 4:58 AM [facility] RDW-CV 13.6 11.3 - 14.8 % 05/06/2025 4:58 AM [facility] Platelet Count 160 150 - 420 x10E9/L 05/06/2025 4:58 AM [facility] MPV 9.8 7.8 - 11.4 fL 05/06/2025 4:58 AM [facility] Blood BLOOD SPECIMEN / Unknown Lab Venipuncture / Unknown 05/06/2025 4:31 AM TEMPORARY OFFICE ASSISTANT 05/06/2025 4:43 AM [facility] us Samina Glasgow MD LAB - HEMATOLOGY ORDERABLES Fin al Result [facility] [address] [place] [address] * (ABNORMAL) BLOOD GASES CORD ANA (ISTAT) (05/05/2025 6:09 PM TEMPORARY OFFICE ASSISTANT) pH Cord Venous POCT 7.32 7.28 - 7.40 pH 05/05/2025 6:04 PM [facility] pCO2 Cord Venous POCT 36.9 35 - 45 mm hg 05/05/2025 6:04 PM [facility] pO2 Cord Venous POCT 29 22 - 33 mm hg 05/05/2025 6:04 PM [facility] HCO3 Cord Arterial POCT 19.2(L) 22 - 24 mmol/L 05/05/2025 6:04 PM [facility] BE Cord Venous POCT Calc -6 -6.4 - 1.6 mmol/L 05/05/2025 6:04 PM [facility] TCO2 Cord Venous POCT 20(L) 22 - 30 mmol/L 05/05/2025 6:04 PM [facility] O2 Saturation % Cord Venous Calc POCT 50 % 05/05/2025 6:04 PM [facility] Site CORD ANA 05/05/2025 6:04 PM [facility] Sample iSTAT CORD ANA 05/05/2025 6:04 PM [facility] Blood CORD BLOOD SPECIMEN / Unknown 05/05/2025 6:09 PM TEMPORARY OFFICE ASSISTANT 05/05/2025 6:04 PM [facility] Samina Glasgow MD LAB - POINT OF CARE ORDERABLES Final Result Performing Organization Address City/State/[facility] Co de Phone Number [facility] [address] [place], [place] [id number] * (ABNORMAL) BLOOD GASES CORD ART (ISTAT) (05/05/2025 6:06 PM TEMPORARY OFFICE ASSISTANT) pH Cord Arterial POCT 7.27 7.20 - 7.34 pH 05/05/2025 6:01 PM [facility] pCO2 Cord Arterial POCT 47.5 45 - 55 mm hg 05/05/2025 6:01 PM [facility] pO2 Cord Arterial POCT 17 12 - 25 mm hg 05/05/2025 6:01 PM [facility] HCO3 Cord Arterial POCT 21.7(L) 22 - 24 mmol/L 05/05/2025 6:01 PM [facility] BE Cord Arterial POCT -6(L) -2.9 - 8.3 mmol/L 05/05/2025 6:01 PM [facility] TCO2 Cord Arterial POCT 23 mmol/L 05/05/2025 6:01 PM TEMPORARY OFFICE ASSISTANT [facility] O2 Saturation Cord Art % Calc POCT 20 % 05/05/2025 6:01 PM TEMPORARY OFFICE ASSISTANT [facility] Site CORD ART 05/05/2025 6:01 PM TEMPORARY OFFICE ASSISTANT [facility] Sample iSTAT CORD ART 05/05/2025 6:01 PM TEMPORARY OFFICE ASSISTANT [facility] Blood CORD BLOOD SPECIMEN / Unknown 05/05/2025 6:06 PM TEMPORARY OFFICE ASSISTANT 05/05/2025 6:01 PM TEMPORARY OFFICE ASSISTANT us Samina Glasgow MD LAB - POINT OF CARE ORDERABLES Final Result [facility] [address] [place], [place] [id number] * ETT LINE PERFORMABLE (05/05/2025 5:25 PM TEMPORARY OFFICE ASSISTANT) Narrative Cecil Song APRN-CRNA - 05/05/2025 5:25 PM TEMPORARY OFFICE ASSISTANT Cecil Song APRN-CRNA 05/05/2025 5:26 PM Endotracheal Tube Placement: Patient Location: OR. Intubation Event Date/Time: 05/05/2025 4:52 PM Procedure: intubation (86009) Procedure Section: Sedation: under general anesthesia. Indications for Airway Management: anesthesia Procedure pretreatments used? Nursing documentation on the [facility] Procedure Pretreatments (manual): 100% O2 Induction: rapid sequence and cricoid pressure Patient Position: sniffing Mask Ventilation: not attempted. Blade Type: Video Blade Size: 3 Laryngoscopy View: grade 1 (full cords) Intubation Adjuncts: stylet, cricoid pressure and video laryngoscope Tube: endotracheal tube Placement: oral Tube type: cuff - inflated Tube Size (MM): 7 Depth of Insertion (CM): 22 Measured From: lips Cuff volume (mL): 8 Cuff Inflated With: air Number of Attempts: 1. Placement Verified By: direct visualization, bilateral breath sounds, CO2 monitor and chest auscultation Tube secured with: adhesive tape. Dentition unchanged? Yes Difficult Airway? No. Procedure Start Time: 05/05/2025 4:52 PM. Staff Section Anesthesia Provider: Cecil Song APRN-CRNA, Performed the procedure us Russell Mejias MD GENERAL ANESTHESIA ORDERABLE S Final Result * (ABNORMAL) COAGULATION PANEL W D-DIMER (05/05/2025 5:15 PM TEMPORARY OFFICE ASSISTANT) Only the most recent of4 resultswithin the time period is included. PT 15.3(H) 12.1 - 14.8 sec 05/05/2025 6:35 PM [facility] INR 1.2(H) 0.9 - 1.1 05/05/2025 6:35 PM [facility] PTT 23.9 23.0 - 38.4 sec 05/05/2025 6:35 PM [facility] Fibrinogen 333 200 - 400 mg/dL 05/05/2025 6:35 PM [facility] D-Dimer 1.22(H) 0.27 - 0.50 ug/mL FEU 05/05/2025 6:35 PM [facility] Platelet Count 233 150 - 420 x10E9/L 05/05/2025 6:35 PM [facility] Blood BLOOD SPECIMEN / Unknown Venipuncture / Unknown 05/05/2025 5:15 PM TEMPORARY OFFICE ASSISTANT 05/05/2025 5:22 PM TEMPORARY OFFICE ASSISTANT Narrative [facility] - 05/05/2025 6:35 PM TEMPORARY OFFICE ASSISTANT Conventional Warfarin Anticoagulant Therapy INR Reference Range: 2.0-3.0 Intensive Warfarin Anticoagulant Therapy INR Reference Range: 2.5-3.5 Heparin Therapeutic Range for PTT: 69.0 - 110.0 seconds. In the absence of clinical symptoms, a value less than or equal to 0.5 mcg/mL FEU significantly decreases the probability of PE/DVT (negative predictive value >95%). 1 mcg/ml FEU = 1 Fibrinogen Equivalent Unit (approximates 0.5 mcg/mL of D- dimer). ISTH DIAGNOSTIC SCORING SYSTEM FOR DIC ---- Score 0 1 2 3 Platelet Count (x10^3/uL) > 100 <100 < 50 N/A PT Prolongation above Upper limit of normal 0-3 3-6 > 6 N/A Range (seconds) Fibrinogen (mg/dL) >100 < 100 N/A N/A D-Dimer (mcg/mL FEU) < 0.50 N/A 0.50-5.0 > 5 Calculate Cumulative Score: > or = 5: compatible with overt DIC < 5: suggestive for non-overt DIC N/A = Non applicable Reference: Br. J. Haematol. 145:24-33,2009. us Samina Glasgow MD LAB - COAGULATION ORDERABLES Fi nal Result [facility] [address] [place] [address] * (ABNORMAL) COMPREHENSIVE METABOLIC PANEL (05/05/2025 5:10 PM TEMPORARY OFFICE ASSISTANT) Only the most recent of2 resultswithin the time period is included. Glucose 138(H) 70 - 99 mg/dL 05/05/2025 5:42 PM [facility] Sodium 137 136 - 145 mmol/L 05/05/2025 5:42 PM [facility] Potassium 3.7 3.5 - 5.1 mmol/L 05/05/2025 5:42 PM [facility] Chloride 113(H) 98 - 107 mmol/L 05/05/2025 5:42 PM [facility] CO2 15(L) 22 - 29 mmol/L 05/05/2025 5:42 PM [facility] Calcium 7.7(L) 8.4 - 10.4 mg/dL 05/05/2025 5:42 PM [facility] Anion Gap 9 6 - 16 mmol/L 05/05/2025 5:42 PM [facility] BUN 6 5.3 - 18.7 mg/dL 05/05/2025 5:42 PM [facility] Creatinine 0.50 0.50 - 1.00 mg/dL 05/05/2025 5:42 PM [facility] Alkaline Phosphatase 68 40 - 150 U/L 05/05/2025 5:42 PM [facility] ALT <6(L) 6 - 57 U/L 05/05/2025 5:42 PM [facility] AST 16 10 - 48 U/L 05/05/2025 5:42 PM [facility] Protein Total 5.4(L) 6.4 - 8.3 gm/dL 05/05/2025 5:42 PM [facility] Albumin 2.4(L) 3.1 - 4.5 gm/dL 05/05/2025 5:42 PM [facility] Bilirubin Total 0.4 0.2 - 1.2 mg/dL 05/05/2025 5:42 PM [facility] eGFR by CKD-EPI >90 >=90 mL/min/1.7 3 m2 05/05/2025 5:42 PM [facility] Comment:Estimated Glomerular Filtration Rate (eGFR) calculated using the CKD-EPI Creatinine Equation (2020), per the National [employer] and [place] [employer] recommendations. Blood BLOOD SPECIMEN / Unknown Venipuncture / Unknown 05/05/2025 5:10 PM TEMPORARY OFFICE ASSISTANT 05/05/2025 5:22 PM TEMPORARY OFFICE ASSISTANT us Samina Glasgow MD LAB - CHEMISTRY ORDERABLES Dilcia jay Result [facility] [address] [place] [address] * PATHOLOGY TISSUE EXAM (STL) (05/05/2025 5:02 PM TEMPORARY OFFICE ASSISTANT) Case Report Surgical Pathology Report Case: [id number] Authorizing Provider: Samina Glasgow MD Collected: 05/05/2025 05:02 PM Ordering Location: [facility] Received: 05/07/2025 09:57 AM Pathologist: Tiffanie Barr MD Specimen: Placenta 05/10/2025 10:32 AM [facility] Final Diagnosis Placenta, delivery - Small, hypermature placenta (weight <10th percentile for gestational age) - membranes with no histopathologic abnormality - Three-vessel umbilical cord with no histopathologic abnormality 05/10/2025 10:32 AM [facility] at 1032 TEMPORARY OFFICE ASSISTANT Clinical History The patient is a 34-year-old woman at 32 weeks, 3 days gestation. Procedure: section. 05/10/2025 10:32 AM [facility] Gross Description The requisition and specimen(s) are identified with the patient's name. Received fresh and subsequentially placed in formalin, specimen A, placenta is a 202 g (after membranes and cord removed), 15.0 x 13.0 x 2.0 cm diaz discoid placenta. The membranes are pink-trejo and semitranslucent with a marginal insertion. The trejo-white umbilical cord is 19.5 cm length x 1.7 cm average diameter with normal coiling and a paracentral insertion. Serial sectioning shows a trivascular and edematous cut surface. The surface is dusky blue-pink, and with prominent arborizing vasculature. The maternal surface is lobular, red-brown, and 100% complete with no missing cotyledons. Serial sectioning shows a spongy and red-pink parenchyma. No discrete masses or lesions are identified. Last Sawyer sections are submitted as follows: A1- Membrane roll and umbilical cord A2- Central parenchyma, full thickness A3- Peripheral parenchyma, full thickness./ANC 05/10/2025 10:32 AM [facility] Microscopic Description Microscopic examination substantiates the above diagnosis. 05/10/2025 10:32 AM [facility] Pathologist Location at [facility] 05/10/2025 10:32 AM [facility] Disclaimer All histochemical and/or immunohistochemical results are interpreted with controls that demonstrate appropriate staining reactions before reporting results. Note on use of immunocytochemistry reagents: This test was developed and its performance characteristic determined by [facility], Department of Laboratory Medicine. It has not been cleared or approved by the U.S. Food and Drug Administration (FDA). The FDA has determined that such clearance or approval is not necessary. The test is used for clinical purpose. It should not be regarded as investigational or for research. This laboratory is certified to perform high complexity testing. The performance characteristics of the IHC/OSCAR assays have been validated on formalin-fixed paraffin embedded tissues only. The assays have not been validated on decalcified tissues. Results should be interpreted with caution. 05/10/2025 10:32 AM [facility] Embedded Images 05/10/2025 10:32 AM [facility] Pathology/Cytolo gy ENTIRE PLACENTA / Unknown 05/05/2025 5:02 PM TEMPORARY OFFICE ASSISTANT 05/07/2025 9:57 AM TEMPORARY OFFICE ASSISTANT Comment:Pre-op diagnosis: Placenta previa Samina Glasgow MD LAB - PATHOLOGY/CYTOLOGY ORDERA BLES Final Result [facility] [address] [place] [address] * (ABNORMAL) CULTURE STREP B (05/05/2025 1:06 PM TEMPORARY OFFICE ASSISTANT) Culture Strep B Growth of Streptococcus agalactiae (Group B)(AA) RAYMOND 05/07/2025 9:15 AM [facility] Microbiology MISCELLANEOUS SAMPLES / Unknown Collection / Unknown 05/05/2025 1:06 PM TEMPORARY OFFICE ASSISTANT 05/05/2025 1:21 PM TEMPORARY OFFICE ASSISTANT Narrative [facility] - 05/07/2025 9:15 AM TEMPORARY OFFICE ASSISTANT Susceptibility testing of penicillin, other beta-lactam antibiotics, and vancomycin is not necessary for beta-hemolytic streptococci groups A,B,C and G because resistant strains have not been recognized. Organism Antibiotic Method Susceptibility Streptococcus agalactiae (Group B) Clindamycin RAYMOND <=0.25 ug/mL: Susceptible Streptococcus agalactiae (Group B) Inducible Clindamycin Resistance RAYMOND NEG ug/mL: Neg us Samina Glasgow MD LAB - MICROBIOLOGY ORDERABLES F inal Result Performing Organization Address City/[facility]/ZIP Co de Phone Number [facility] [address] [place] [address], [facility] [phone] * FERRITIN (05/05/2025 12:02 PM TEMPORARY OFFICE ASSISTANT) Ferritin 8 5 - 204 ng/mL 05/05/2025 1:49 PM TEMPORARY OFFICE ASSISTANT [facility] Blood BLOOD SPECIMEN / Unknown Lab Venipuncture / Unknown 05/05/2025 12:02 PM TEMPORARY OFFICE ASSISTANT 05/05/2025 12:21 PM TEMPORARY OFFICE ASSISTANT us Samina Glasgow MD LAB - CHEMISTRY ORDERABLES Dilcia l Result Performing Organization Address City/[facility]/ZIP Co de Phone Number [facility] [address] [place] [address] * Sonogram - Complete (05/05/2025 8:01 AM TEMPORARY OFFICE ASSISTANT) Linked Results Indication ======== Grave?s disease w/o thyroid storm Hyperthyroidism complicating Complete placenta previa with hemorrhage Vaginal bleeding started yesterday with contractions labor (PTL) < 37 weeks anatomy evaluation Vaginal bleeding, unspecified trimester History ====== OB History 5. Para 3 [id number] 1. live 2018. Gest. age 37 w + 0 d. Details: C/S, SGA, Oligohydramnios, Breech 2. miscarriage 2019. Details: 1st trimester, No D&C 3. live 2019. Gest. age 37 w + 0 d. Details: C/S 4. live 2022. Gest. age 38 w + 0 d. Details: C/S, Hyperthyroid Lab Tests Test Date Result NIPT Declined Maternal Assessment Physical Exam Height 155 cm, 5 ft 1 in. Initial weight 53 kg, 116 lb. BMI 23.62 kg/m . Initial BMI 21.92 kg/m Method ====== Transabdominal and transvaginal ultrasound examination. View: Suboptimal view: limited by late gestational age ========= Diaz . Number of fetuses: 1 Dating ====== Date Details Gest. age SHAAN LMP 09/20/2024 32 w + 3 d 06/27/2025 Stated SHAAN 32 w + 3 d 06/27/2025 Previous U/S 11/18/2024 GA, GA 9 w + 0 d 33 w + 0 d 06/23/2025 U/S 05/05/2025 based upon AC, BPD, Femur, HC 31 w + 1 d 07/06/2025 Assigned dating based on the LMP, selected on 12/30/2024 32 w + 3 d 06/27/2025 General Evaluation Cardiac activity present. FHR 153 bpm. Presentation: cephalic Placenta: Placental site: posterior with complete previa . No evidence of placenta accreta spectrum. Umbilical cord: Cord vessels: 3 vessel cord. Insertion site: normal insertion Amniotic fluid: Amount of AF: normal. MVP 5.8 cm. ARIADNA 16.5 cm. Q1 2.7 cm, Q2 4.3 cm, Q3 5.8 cm, Q4 3.8 cm Biometry BPD 69.7 mm 28w 0d <1% Hadlock HC 284.6 mm 31w 2d 3% Hadlock Cerebellum tr 41.9 mm 49% [place] AC 282.9 mm 32w 2d 46% Hadlock Femur 63.3 mm 32w 5d 46% Hadlock Humerus 54.2 mm 31w 4d 31% Estefany HC / AC 1.01 -/- Hadlock Weight Calculation: EFW 1,869 g 26% Hadlock EFW (lb,oz) 4 lb 2 oz EFW by Hadlock ([id number]) appropriate, BPD skewed by head position Growth Overview Exam date GA BPD (mm) HC (mm) AC (mm) FL (mm) HL (mm) EFW (g) 12/30/2024 14w 3d 28.9 79% 108.6 72% 89.8 80% 16.7 66% 114 79% 05/05/2025 32w 3d 69.7 <1% 284.6 3% 282.9 46% 63.3 46% 54.2 31% 1869 26% Anatomy The following structures appear normal: Head / Neck Cranium. Choroid plexus. Midline falx. Cavum septi pellucidi. Cerebellum. Thalami. Heart / Thorax Situs. Aortic arch view. Bicaval view. Ductal arch view. Diaphragm. Abdomen Stomach. Kidneys. Bladder. Bowel. Spine Cervical spine. Thoracic spine. Lumbar spine. Sacral spine. Extremities / Skeleton Right arm. Legs. Right leg. The following structures could not be adequately visualized: Head / Neck Lateral ventricles. Cisterna magna. Face Lips. Profile. Nose. Nasal bone. Orbits. Heart / Thorax 4-chamber view. RVOT view. LVOT view. 3-vessel view. 1-zyoviv-xmqyqds view. Great vessels. Right lung. Left lung. Abdomen Cord insertion. Genitals. Extremities / Skeleton Hands. Left arm. Feet. Left leg. Maternal Structures Cervix reassuring Approach - Transvaginal: Cervical length 2.90 cm Funneling absent Right Ovary Normal Left Ovary Normal Clot/debris (1.4 x 0.8 cm) in the upper cervix, vaginal bleeding observed during exam on u/s probe. Posterior placenta with complete previa. Impression ========= Single live intrauterine at 32w 3d size is within normal limits Normal amniotic fluid volume Complete placenta previa, posterior placenta, without overt sonographic features of placenta previa Debris/clot within the cervical canal, total CL 2.9 cm Several portions of the anatomy survey are suboptimally viewed, limited by late gestational age and position No major malformations are detected at this time Comment ======== ultrasound alone cannot detect all structural, genetic, or functional , placental, or maternal abnormalities. The patient was inpatient at the time of the study. Follow-up ======== Follow up as clinically indicated per the inpatient antepartum team. Dr. Glasgow and the team were present at the time of the scan. 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 Z36.3: Encounter for screening for malformations Procedures 23431: US Preg Uterus Detailed 93424: US Preg Uterus Transvaginal Tech PACS Anatomical Region Laterality Modality Other 05/05/2025 8:01 AM TEMPORARY OFFICE ASSISTANT us Samina Glasgow MD [facility] ORDERABLES Edited Result - Final * BLOOD TYPE VERIFICATION (05/04/2025 7:33 PM TEMPORARY OFFICE ASSISTANT) ABO Rh O NEG 05/04/2025 8:2 5 PM TEMPORARY OFFICE ASSISTANT [facility] Blood Bank BLOOD SPECIMEN / Unknown Lab Venipuncture / Unknown 05/04/2025 7:33 PM TEMPORARY OFFICE ASSISTANT 05/04/2025 7:44 PM TEMPORARY OFFICE ASSISTANT us Samina Glasgow MD LAB - BLOOD BANK ORDERABLES Fin al Result [facility] [address] [place] [address] * PREPARE (CROSSMATCH) RBC UNIT(S), 2 Units (05/04/2025 6:22 PM TEMPORARY OFFICE ASSISTANT) Only the most recent of2 resultswithin the time period is included. Unit Description AS1 LR PRBC [facility] Unit ABO O [facility] Unit Rh NEG [facility] Product Number R02 [facility] Unit Donor # [id number] [facility] Unit Status released [facility] Product Code [id number] [facility] Blood Type Barcode 9500 [facility] Expiration Date S [facility] Unit Description AS1 LR PRBC [facility] Unit ABO O [facility] Unit Rh NEG [facility] Product Number R02 [facility] Unit Donor # [id number] [facility] Unit Status transfused [facility] Product Code [id number] [facility] Blood Type Barcode 9500 [facility] Expiration Date S [facility] Blood Bank BLOOD SPECIMEN / Unknown 05/04/2025 6:22 PM TEMPORARY OFFICE ASSISTANT 05/04/2025 7:10 PM TEMPORARY OFFICE ASSISTANT us Samina Glasgow MD LAB - BLOOD BANK ORDERABLES Fin al Result Performing Organization Address [facility] Co de Phone Number [facility] [address] [place] [address] * TSH REFLEX FREE T4 (05/04/2025 6:22 PM TEMPORARY OFFICE ASSISTANT) Pathologist [facility] TSH 0.776 0.350 - 4.940 uIU/mL 05/04/2025 8:00 PM TEMPORARY OFFICE ASSISTANT [facility] Blood BLOOD SPECIMEN / Unknown Venipuncture / Unknown 05/04/2025 6:22 PM TEMPORARY OFFICE ASSISTANT 05/04/2025 7:10 PM TEMPORARY OFFICE ASSISTANT us Samina Glasgow MD LAB - CHEMISTRY ORDERABLES Dilcia l Result [facility] [address] [place] [address] * KLEIHAUER BETKE STAIN (05/04/2025 6:22 PM TEMPORARY OFFICE ASSISTANT) Number Cells Counted 0 05/04/2025 8:47 PM TEMPORARY OFFICE ASSISTANT [facility] Number of Maternal Cells 4,000 05/04/2025 8:47 PM TEMPORARY OFFICE ASSISTANT [facility] % Cells 0.00 % 05/04/2025 8:47 PM TEMPORARY OFFICE ASSISTANT [facility] Number of Vials 1 05/04/2025 8:47 PM TEMPORARY OFFICE ASSISTANT [facility] /Maternal Ratio 0.0000 <=0.0000 05/04/2025 8:47 PM TEMPORARY OFFICE ASSISTANT [facility] Blood BLOOD SPECIMEN / Unknown Venipuncture / Unknown 05/04/2025 6:22 PM TEMPORARY OFFICE ASSISTANT 05/04/2025 7:10 PM TEMPORARY OFFICE ASSISTANT [facility] - 05/04/2025 8:47 PM TEMPORARY OFFICE ASSISTANT RhoD Immune Globulin Dosing Chart /Adult ratio Maternal Hemorrhage Range (mL) 1500 Unit Dose 0 - 0.0029 0 - 14.9 1 0.003 - 0.0089 15.0 - 44.9 2 0.009 - 0.0149 45.0 - 74.9 3 0.015 - 0.0209 75.0 - 104.9 4 0.021 - 0.0269 105.0 - 134.9 5 0.027 - 0.0329 135.0 - 164.9 6 0.033 - 0.0389 165.0 - 194.9 7 0.039 - 0.0449 195.0 - 224.9 8 0.045 - 0.0509 225.0 - 254.9 9 0.051 - 0.0569 255.0 - 284.9 10 0.057 - 0.0629 285.0 - 314.9 11 0.063 - 0.0689 315.0 - 344.9 12 0.069 - 0.0749 345.0 - 374.9 13 0.075 - 0.0809 375.0 - 404.9 14 0.081 - 0.0869 405.0 - 434.9 15 0.087 - 0.0929 435.0 - 464.9 16 0.093 - 0.0989 465.0 - 494.5 17 0.099 - 0.100 495.0 - 500.0 18 Please note: No RhoD is recommended for mothers who are Rh positive. us Samina Glasgow MD LAB - HEMATOLOGY ORDERABLES Fin al Result Performing Organization Address [facility] Co de Phone Number [facility] [address] [place] [address] * TYPE + SCREEN PANEL (05/04/2025 6:22 PM TEMPORARY OFFICE ASSISTANT) ABO Rh O NEG 05/04/2025 8:30 PM TEMPORARY OFFICE ASSISTANT [facility] Comment:No history; collect retype. Antibody Screen NEG 8:30 PM TEMPORARY OFFICE ASSISTANT [facility] Blood Bank BLOOD SPECIMEN / Unknown Venipuncture / Unknown 05/04/2025 6:22 PM TEMPORARY OFFICE ASSISTANT 05/04/2025 7:10 PM TEMPORARY OFFICE ASSISTANT us Samina Glasgow MD LAB - BLOOD BANK ORDERABLES Fin al Result Performing Organization Address [facility] Co de Phone Number [facility] [address] [place] [address] * ANTIBODY IDENTIFICATION (05/04/2025 6:22 PM TEMPORARY OFFICE ASSISTANT) Antibody 1 POS, Anti-D Passive, RhIg Given 05/04/2025 8:31 PM TEMPORARY OFFICE ASSISTANT [facility] Blood Bank BLOOD SPECIMEN / Unknown Venipuncture / Unknown 05/04/2025 6:22 PM TEMPORARY OFFICE ASSISTANT 05/04/2025 7:10 PM TEMPORARY OFFICE ASSISTANT us Samina Glasgow MD LAB - BLOOD BANK ORDERABLES Fin al Result Performing Organization Address [facility] Co de Phone Number [facility] [address] [place] [address] from Last 3 Months Insurance ANTH * Guarantor: [employer] Account Type Relation to Patient Date of Phone Billing Address Personal/Family Spouse Advance Directives * Full Code (Latest Code Status on File) Date Activated Date Inactivated Comments 05/04/2025 6:08 PM 05/09/2025 2:41 PM
--- OUTSIDE RECORDS SUMMARY | 2025-06-04 11:43 | XMS_ITS | Data Portability ---
Author Organization [place] [facility], Main Office Address [address] [place] [address] Assessment Encounter Date Assessment Date Assessment LastModified by Organization Details LastModified Time 01/09/2023 01/09/2023 The patient gave verbal consent using TelePhonic services and the consent is documented in the medical record prior to using the service. The patient has been informed of what a TeleMedicine visit is. Patient is located at home. Provider is located at office. Names and roles of persons in addition to the patient and provider participating in telemedicine services include none. The patient had a 14 minute TeleMedicine consultation via phone call to discuss the following: EDILIAE- YVON- Tabitha LEAL- 05/30/22 Call office if worse, ER if life threatening illness RTC 4 months and PRN She voices understanding of plan and agrees [email or web address] Not available 01/09/2023 16:23:06 05/14/2023 05/14/2023 ANDREA- [employer]- Tabitha LEAL- 05/30/22 Call office if worse, ER if life threatening illness RTC 4 months and PRN- she plans transfer to Dr. Sheriff She voices understanding of plan and agrees [email or web address] Not available 05/14/2023 11:56:58 Plan of Treatment Reminders Order Date Submit Date Provider Last Modified By Organization Details Last Modified Time Details Appointments None recorded. Lab RIGOBERTO (antinucle ar antibodies ) screen, serum 2024 025 [facility], [address] [address], [place], [address], 08:32:18 C reactive protein, QN, serum or plasma 2024 025 [email or web address], [address] [facility], [facility], [place], [address], 5 08:32:18 ESR (erythrocy te sedimentat ion rate), blood 2024 025 [email or web address] [facility], [address] [facility], [facility], [place], [address], 5 08:32:19 ccp (cyclic citrullina josef peptide) iga+igg, serum 2024 025 [email or web address] [facility], [address] [place] [address], [facility], [place], [address], 5 08:32:19 rf (rheumatoi d factor), serum 2024 025 [facility], [address] [place] [address], [place], [address], 5 08:32:19 CBC w/ auto diff 2024 025 [email or web address], [address] [address], [place], [address], 5 08:32:19 CMP, serum or plasma 2024 025 [email or web address] [facility], [address] [address], [place], [address], 5 08:32:19 cortisol, serum or plasma 2024 025 CARISA [facility], [address] [facility], [facility], [place], [address], 5 10:47:17 CBC w/ auto diff 2023 024 [facility] (Lab), [address] [place], [address], 4 14:07:01 CMP, serum or plasma 2023 024 [facility] (Lab), [address] [place], [address], 4 14:07:01 lipid panel, serum [address] (Lab), [address] [place], [address], 5 09:13:25 TSH + free T4, serum 2023 024 [facility] (Lab), [address] [place], [address], 4 14:07:02 HbA1c (hemoglobi n A1c), blood 2023 024 [facility] (Lab), [address] [place], [address], 5 08:32:18 hepatitis C virus Ab, serum [address] (Lab), [address] [place], [address], 5 09:13:25 lipid panel, serum 2023 024 [facility] (Lab), [address] [place], [address], 4 07:42:30 CBC w/ auto diff 2023 024 CARISA Not available 4 21:29:58 CMP, serum or plasma 2023 024 CARISA Not available 4 21:29:58 HbA1c (hemoglobi n A1c), blood 2023 024 [email or web address] Not available 07:42:[address] referral 2023 brent Newby MD, [address] [place] [address], [place], [address], 07:29:04 Procedures None recorded. Surgeries None recorded. Imaging None recorded. Medication Orders labetalol 100 mg tablet 2024 [facility] #95083, [address], [place], [id number], 5 12:58:24 ondansetro n 4 mg disintegra ting tablet 2024 [facility] #42752, [address], [place], [id number], 12:58:19 labetalol 100 mg tablet 2023 024 [facility] #75187, [address], [place], [id number], 11:20:23 Transderm- Scop 1 mg over 3 days transderma l patch 2023 [facility] #78168, [address], [place], [id number], 4 11:20:21 ondansetro n 4 mg disintegra ting tablet 2023 [facility] #79403, [address], [place], [id number], 4 11:20:17 labetalol 100 mg tablet 2023 024 [facility] #17293, [address], [place], [id number], 4 17:11:26 buspirone 10 mg tablet 2023 024 [facility]76587, [address] [place], [place], [id number], 5 12:05:00 labetalol 100 mg tablet 2022 023 CARISA [facility]51155, [address] [place] [address], [id number], 3 10:48:19 azithromyc in 250 mg tablet 2022 023 brent [facility]03475, [address], [place], [id number], 4 11:07:54 buspirone 10 mg tablet 2022 023 [address] [facility], [address] [place] [address], [id number], 5 12:05:00 buspirone 10 mg tablet 2022 [address] [place] [address] [facility] #89234, [address] [place] [address], [id number], 5 12:05:00 Patient TargetsNo targets recorded. Patient Instructions Encounter Date Encounter Id Patient Instructions Last Modified By Organization Details Last Modified Time 01/09/2023 [id number] Due to the COVID-19 (Novel Coronavirus) pandemic, it is within this context (and with the understanding that this method of patient encounter is in the patient s best interest as well as the health and safety of other patients and the public) that [facility] is being provided for this patient encounter rather than a [id number] visit. This patient encounter is appropriate at this time. This patient has been advised of the potential risks and limitations of this mode of treatment (including, but not limited to, the absence of in-person examination) and has agreed to be treated in a remote fashion despite these risks. Any and all of the patient s /patient s family s questions on this issue have been answered, and I have made no promises or guarantees to the patient. The patient has also been advised to contact this office for worsening conditions or problems, and seek emergency medical treatment and/or call 911 if the patient deems either necessary. HPI and/or vitals, if listed, were provided by the patient. Not available 01/09/2023 16:02:35 08/20/2023 [id number] Follow up in 4 months Labs ordered Prescriptions sent to pharmacy Referral to Cardiology-Dr. Odin gagnon Not available 08/20/2023 17:11:13 03/31/2024 [id number] Follow up in 6 months Prescription sent to pharmacy Obtain labs Tests: Referral: Recommend: Not available 03/31/2024 11:20:08 08/18/2024 [id number] Follow up in 3 months Prescriptions sent to pharmacy Obtain labs Tests: Referral: Recommend: Tetanus vaccine Shingles vaccine Not available 08/18/2024 12:58:07 Reason for Referral [employer] Referral for Ta chycardia Tachycardia, pt feels heart palpitations Referring Physician: Prachi Worley, Internal Medicine, Encounter Date: 08/20/2023 Results Created Date Observation Date Name Description Value Unit Range Abnormal Flag Note LastModifiedBy Organization Detail LastModifiedTime 03/12/20 24 03/11/2024 US, thyro id No observ ation record ed. [email or web address] [address], [place], [address], 03/25/2024 10:34:13 Result Notes None recorded. Problems Name Problem SNOMED Code Status Onset Date Resolution Date Notes Provider Name and Address Organization Details Recorded Time 78415208 Completed 201704/08/2018 Not Available [facility] 3 19:45:29 07196524 Completed 201809/02/2019 Not Available [facility] 3 19:45:29 Generaliz ed anxiety disorder 09568723 Active 2021 Prachi Worley APRN [address], [place], [address] , [facility] [employer] 4 14:52:07 Chronic tonsillit is 81812961 Active 2021 Not Available [facility] 3 22:17:55 Graves' disease 995309768 Active 2021 Prachi Worley APRN [address], [place], [address] , [employer] 4 14:52:10 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 638361523 Active 2021 Prachi Worley APRN [address], [place], [address] , [employer] 4 14:52:37 Acute upper respirato ry infection 39625517 Active 2022 Not Available [facility] 3 22:17:55 Hyperthyr oidism 71963526 Active 2022 Prachi Worley APRN [address], [place], [address] , [employer] 4 14:52:14 Hyperthyr oidism in 09495351094 100 Active 2022 Not Available [facility] 3 22:17:55 Hypothyro idism 60800522 Active 2022 Not Available [facility] 3 22:17:55 Tachycard ia 1552336 Active 2022 Prachi Worley APRN [address], [place], [address] , [employer] 4 14:52:33 New daily persisten t headache 75741053485 9105 Active 2022 LEV Newsome [address], [place], [address] , [employer] 3 15:04:43 Migraine with aura 8748913 Active 2022 Prachi Worley APRN [address], [place], [address] , [place] [facility] 4 14:52:30 Migraine without aura 82580716 Active 2022 LEV Newsome [address], [place], [address] , [place] [facility] 3 15:04:59 Intermitt ent palpitati ons 775653587 Active 2022 Prachi Worley APRN [address], [place], [address] , [place] [facility] 4 14:52:26 Upper respirato ry infection 34644867 Active 2022 Brandy brownlee, [place] [facility] 3 15:15:21 Acute left otitis media 694322451 Active 2022 LEV Newsome [address], [place], [address] , [place] [facility] 3 10:48:02 Acute sinusitis 59295502 Active 2023 Prachi Worley APRN [address], [place], [address] , [place] [facility] 4 10:47:15 Motion sickness 37766202 Active 2023 Prachi Worley APRN [address], [place], [address] , [place] [facility] 4 11:16:06 Autoimmun e disease 43206860 Active 2024 Prachi Worley APRN [address], [place], [address] , [place] [facility] 5 12:50:45 Abnormal cortisol 008327346 Active 2024 Prachi Worley APRN [address], [place], [address] , [employer] 5 12:33:35 Problem Notes None recorded. Procedures Surgical History Date Name Laterality Status Provider Name and Address Organization Details Recorded Time 3 section completed Stacie Son MA [facility] 01/09/2023 16:04:30 0 Date of Last Pap Smear completed Not Available [facility] 08/08/2022 19:44:46 0 section completed Not Available [facility] 08/08/2022 19:44:47 8 section completed Not Available [facility] 08/08/2022 19:44:47 Imaging Results None recorded. Procedure Notes None recorded. Medical Equipment None Reported. Allergies Allergen ID Allergen Name Allergen Category Reaction Reaction Severity Criticality Documentation Date Start Date Code Code System Note Provider Name and Address Organization Details Recorded Time 35557 Product containin g penicilli n (product) medicatio n rash respirato ry distress Not available Not available Not available 08/08/2022 96545 8001 SNOMED Not Available [facility] 3 19:46:05 77419 amoxicill in medicatio n rash respirato ry distress Not available Not available Not available 08/08/2022 723 RxNorm Not Available [facility] 3 19:46:06 Medications Name Sig Start Date Stop Date Status Note LastModified by Organization Details LastModified Time nifedipine ER 30 mg tablet,exte nded release 24 hr TAKE 1 TABLET BY MOUTH DAILY 05/14 completed Not Available Not Available Not Available nystatin 100,000 unit/mL oral suspension TAKE 5 ML BY MOUTH FOUR TIMES DAILY. SWISH AND SWALLOW 01/09 completed Not Available Not Available Not Available doxycycline hyclate 100 mg capsule Take 1 capsule twice a day by oral route. 05/14 completed Not Available Not Available Not Available propylthiou racil 50 mg tablet active Not Available Not Available Not Available Iron (ferrous sulfate) 325 mg (65 mg iron) tablet Take 1 tablet every day by oral route. 09/22 completed Not Available Not Available Not Available azithromyci n 250 mg tablet TAKE 2 TABLETS BY MOUTH FOR 1 DAY THEN TAKE 1 TABLET BY MOUTH DAILY FOR 4 DAYS 03/31 completed Not Available Not Available Not Available hydrocodone 5 mg-acetamin ophen 325 mg tablet 05/09 completed Not Available Not Available Not Available polysacchar shannan iron complex 150 mg iron capsule TAKE 1 CAPSULE BY MOUTH TWICE DAILY WITH MEALS 08/19 completed Not Available Not Available Not Available ondansetron HCl 4 mg tablet TAKE 1 TABLET EVERY 6 HOURS NEEDED NAUSEA 05/14 completed Not Available Not Available Not Available prednisone 20 mg tablet 05/30 completed Not Available Not Available Not Available sumatriptan 50 mg tablet 07/27 completed Not Available Not Available Not Available sulfamethox azole 800 mg-trimetho prim 160 mg tablet Take 1 tablet every 12 hours by oral route for 10 days. 09/22 completed Not Available Not Available Not Available oxycodone-a cetaminophe n 5 mg-325 mg tablet TAKE 1 TABLET BY MOUTH EVERY 6 HOURS NEEDED FOR PAIN 05/14 completed Not Available Not Available Not Available propranolol 40 mg tablet 05/30 completed Not Available Not Available Not Available amitriptyli ne 10 mg tablet Take 1 tablet every day by oral route at bedtime. active Not Available Not Available No t Available buspirone 10 mg tablet TAKE 1 TABLET BY MOUTH TWICE DAILY 08/18 completed Not Available Not Available Not Available methimazole 5 mg tablet TAKE 1 TABLET BY MOUTH EVERY DAY DIRECTED active Not Available Not Available No t Available sertraline 25 mg tablet TAKE 1 TABLET BY MOUTH EVERY DAY 03/08 completed Not Available Not Available Not Available ibuprofen 600 mg tablet TAKE 1 TABLET BY MOUTH EVERY 6 HOURS NEEDED FOR PAIN 05/14 completed Not Available Not Available Not Available scopolamine 1 mg over 3 days transdermal patch APPLY 1 PATCH TOPICALLY TO THE SKIN EVERY 72 HOURS DIRECTED FOR MOTION SICKNESS active Not Available Not Available No t Available labetalol 100 mg tablet TAKE 1/2 TABLET BY MOUTH TWICE DAILY active Not Available Not Available No t Available ondansetron 4 mg disintegrat ing tablet DISSOLVE 2 TABLETS ON THE TONGUE TWICE DAILY FOR 6 DAYS DIRECTED FOR MOTION SICKNESS OR NAUSEA active Not Available Not Available No t Available fluticasone propionate 50 mcg/actuati on nasal spray,suspe nsion SHAKE LIQUID AND USE 2 SPRAYS IN EACH NOSTRIL DAILY active Not Available Not Available No t Available 01/30 completed Not Available Not Available Not Available Estarylla 0.25 mg-0.035 mg tablet TAKE 1 TABLET BY MOUTH EVERY DAY 01/30 completed Not Available Not Available Not Available Afluria Quad 4301-8502 (PF) 60 mcg (15 mcg x 4)/0.5 mL IM syringe ADM 0.5ML IM UTD active Not Available Not Available No t Available Vitals Date Recorded Body height Body mass index (BMI) Body weight Body temperature Heart rate Oxygen saturation Systolic And Diastolic Provider Name and Address Organization Details Last Updated DateTime 5 154.94 cm 21.9 kg/m2 38373.7 1 g 97.6 [degF] 96 /min 99 % 112/70 mm[Hg] Stacie Son MA [facility] [employer] [facility] 5 12:07:58 Date Recorded Body height Heart rate Oxygen saturation Body temperature Body mass index (BMI) Body weight Systolic And Diastolic Provider Name and Address Organization Details Last Updated DateTime 4 154.94 cm 89 /min 98 % 96 [degF] 19.7 kg/m2 57254.6 1 g 118/70 mm[Hg] Kristen Raman CMA [facility] [employer] [facility] 4 16:47:51 Date Recorded Body height Provider Name an d Address Organization Details Last Updated DateTime 01/09/2023 154.94 cm Stacie Son MA [facility] [employer] [facility] 01/09/2023 16:02:49 Date Recorded Body height Body mass index (BMI) Body weight Body temperature Heart rate Oxygen saturation Pain severity - 0-10 verbal numeric rating [Score] - Reported Systolic And Diastolic Provider Name and Address Organization Details Last Updated DateTime 4 154.94 cm 20.6 kg/m2 18979.5 7 g 96.8 [degF] 83 /min 99 % 0 96/70 mm[Hg] Charu Aaron MA [facility] [employer] [facility] 4 11:07:46 Date Recorded Heart rate Provider Name an d Address Organization Details Last Updated DateTime 05/14/2023 90 /min LEV Newsome, [address], [place], [address], [facility] 05/14/2023 11:56:43 Date Recorded Body height Body mass index (BMI) Body weight Body temperature Heart rate Oxygen saturation Systolic And Diastolic Provider Name and Address Organization Details Last Updated DateTime 3 154.94 cm 20.6 kg/m2 57388.5 7 g 97.8 [degF] 74 /min 99 % 114/72 mm[Hg] Stacie Son MA [facility] 3 10:23:53 Social History Question Answer Notes LastModified by Organizat ion Details LastModified Time Tobacco Smoking Status Never Smoker SHAILESH Walsh, [facility] 05/14/2023 09:58:55 What Is Your Level Of Caffeine Consumption? Occasional [id number] Information not available 08/08/2022 In The 14 Days Before Symptom Onset, Have You Had Close Contact With A Laboratory-confir med COVID-19 While That Case Was Ill? No [email or web address] Information not available 05/14/2023 In The 14 Days Before Symptom Onset, Have You Had Close Contact With A Person Who Is Under Investigation For COVID-19 While That Person Was Ill? No [email or web address] Information not available 05/14/2023 What Type Of Diet Are You Following? REGULAR [id number] Information not available 08/08/2022 What Is The Highest Grade Or Level Of School You Have Completed Or The Highest Degree You Have Received? FE40383-4 [email or web address] Information not available 05/14/2023 Have There Been Any Changes To Your Family Or Social Situation? No [email or web address] Information no t available 05/14/2023 What Is The Fluoride Status Of Your Home? Unknown Information not available 05/14/2023 Are There Any Guns Present In Your Home? No [email or web address] Information not available 05/14/2023 Do You Use Insect Repellent Routinely? No [email or web address] Information not available 05/14/2023 Where Do You Live? SingleLevelHouse [email or web address] Information not available 05/14/2023 What Was The Date Of Your Most Recent Tobacco Screening? 08/18/2024 Information not available 08/18/2024 How Many Children Do You Have? 3 Information not available 03/31/2024 Do You Have Any Pets? No [email or web address] Information not available 05/14/2023 What Is Your Relationship Status? [id number] Information not available 08/08/2022 Do You Use Your Seat Belt Or Car Seat Routinely? Yes [email or web address] Information not available 05/14/2023 Do You Have Smoke And Carbon Monoxide Detectors In Your Home? Yes [email or web address] Information not available 05/14/2023 Are You Passively Exposed To Smoke? Yes [email or web address] Information no t available 05/14/2023 Are There Any Smokers In Your House? No [email or web address] Information not available 05/14/2023 Do You Use Sunscreen Routinely? No [email or web address] Information not available 05/14/2023 Have You Recently Traveled Abroad? No [email or web address] Information not available 05/14/2023 Do You Have Any Dietary Restrictions? No Information not available 05/14/2023 Sex: Female Functional Status Question Answer Note LastModified by Organizat ion Details LastModified Time Do you use any illicit or recreational drugs? No [email or web address] Information not available 05/14/2023 Do you or have you ever used any other forms of tobacco or nicotine? No [email or web address] Information not available 05/14/2023 What is your level of alcohol consumption? None [id number] Information not available 08/08/2022 Are you currently employed? 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 None [id number] Information not available 08/08/2022 Mental Status Question Answer Note LastModified by Organization D etails LastModified Time Do you feel stressed (tense, restless, nervous, or anxious, or unable to sleep at night)? [id number] [email or web address] Information not available 05/14/2023 Family History Relationship Description Onset Age of this Age Resolved Age Notes LastModified by Organization Details LastModified Time Mother Hypertensive disorder [id number] Not available 08/08/2022 19:44:48 Maternal Uncle Diabetes mellitus [email or web address] Not available 2023 08:00:52 Sister Hyperthyroid ism [email or web address] Not available 2023 08:00:52 Sister Graves' disease [email or web address] Not available 2023 08:00:52 Father Diabetes mellitus [email or web address] Not available 2023 08:00:52 Medical History Condition Response BLINDNESS N RHEUMATIC FEVER N SLEEP APNEA N MRSA N ALLERGIES/HAYFEVER N INFECTIOUS DISEASE N LUNG DISEASE/DISORDER N HEART ARRHYTHMIA N INSOMNIA N HISTORY OF DRUG ABUSE N RADIATION / CHEMOTHERAPY N COPD N HIGH CHOLESTEROL / HYPERLIPIDEMIA Y EYE PROBLEMS N HYPERTHYROIDISM N BLOOD DISEASES N SURGERY Y EDEMA N EAR OR HEARING PROBLEMS N HYPOTHYROIDISM N SHINGLES N DEPRESSION (INCLUDING POST ) N HAVE YOU BEEN HOSPITALIZED OR SEEN IN [facility] IN THE PAST YEAR ? N STROKE/TIA N THYROID DISEASE Y ULCERS N BENIGN PROSTATIC HYPERPLASIA N OBESITY N EXCESSIVE PERSPIRATION Y GERD/NAUSEA N ANEURYSM N HISTORY WITH COMPLICATIONS WITH ANESTHES IA ? N OSTEOPOROSIS N ARTHRITIS N USE OF BLOOD THINNERS N NO SIGNIFICANT PAST MEDICAL HISTORY N SKIN PROBLEMS N DIABETES, TYPE N PARATHYROID DISEASE N ENT N SEASONAL ALLERGIES N HEARTBURN / REFLUX N BLOOD CLOTS N HEPATITIS / LIVER DISEASE N GOUT N SLEEP DISORDER N ALZHEIMER'S DISEASE N HERPES N RETINOPATHY N SEIZURES/EPILEPSY N HEADACHES/MIGRAINES N GI PROBLEMS N CHF N PACEMAKER N Low Testosterone N DIZZINESS N KIDNEY DISEASE N HEART DISEASE/HEART PROBLEMS N AIDS/HIV N FRACTURES N LIVER DISEASE N HYPERTENSION N CANCER: SPECIFY N TOURETTE'S N ANXIETY DISORDER Y BLOOD TRANSFUSION N ANEMIA/BLOOD DISORDER N ANESTHESIA COMPLICATIONS N CHRONIC EAR INFECTIONS N ATRIAL FIBRILLATION N AUTOIMMUNE DISEASE N TUBERCULOSIS N GLAUCOMA N Gynecological History Statement/Question Response How many live births 2 Date of Last Pap Smear 03/04/2020 Current Control Method None Age at Menarche 15 Date of LMP Obstetrics History GPAL:G 4 P 3 0 1 3 Type Value Multiple Births 0 Full Term 3 Induced 0 Spontaneous 1 Premature 0 Living 3 Ectopics 0 Total 4 Immunizations Vaccine Type Date Status Note Provider Nam e and Address Organization Details Recorded Time Rho(D)-IG 02/03/2018 completed Prachi Worley, [facility] [address] [facility], [facility] [address], [place], [address], [facility] 12/09/2023 08:00:37 Rho(D)-IG 04/08/2018 completed Prachi Worley APRN [address], [place], [address], [facility] [email or web address] [facility] 12/09/2023 08:00:38 Tdap 09/04/2019 completed Prachi Worley APRN [address], [place], [address], [facility] [email or web address] [facility] 12/09/2023 08:00:38 Tdap 04/08/2018 completed Prachi Worley APRN [address], [place], [address], [facility] [email or web address] [facility] [email or web address] [facility] 12/09/2023 08:00:38 Influenza, split virus, quadrivalent, PF 04/24/2018 completed Prachi Worley APRN [address] [facility], [place], [address], [facility] [email or web address] [facility] [email or web address] [facility] 12/09/2023 08:00:38 Past Encounters Encounter ID Performer Location Encounter Start Date Encounter Closed Date Diagnosis/Indication Diagnosis SNOMED-CT Code Diagnosis ICD10 Code Diagnosis IMO Codes Diagnosis Note [id number] S_[facility] _ATHENA_M IGRATION_ DEFAULT_1 _1 , 01/30/2021 00:00:00 01/30/2021 12:17:20 [id number] Erika hagen MD [facility] [address] [place] [address] 02/01/2021 00:00:00 02/01/2021 12:49:43 [id number] MD VALENTINA [facility] [address] [address] 03/08/2021 00:00:00 03/08/2021 17:09:04 [id number] Erika hagen MD Foreign_John Internal Med [facility] [address] [facility] [address] [place] [address] 03/27/2021 00:00:00 03/27/2021 16:34:48 [id number] MD VALENTINA Strange_GMJohn Internal Med [place] [address] [place] [address] [place] [address] 04/05/2021 00:00:00 04/05/2021 14:38:17 [id number] Erika hagen MD Foreign[facility] Internal Med [facility] [address] [facility] [address] [place] [address] 07/27/2021 00:00:00 07/27/2021 20:21:11 [id number] Osmin Jaffe MD Foreign_GMJohn ENT [place] [address] [place] [address] 08/17/2021 00:00:00 08/17/2021 11:22:42 [id number] Erika hagen MD [facility] [address] [place] [address] [place] [address] 08/23/2021 00:00:00 08/23/2021 13:37:24 [id number] MD VALENTINA Strange_[facility] [address] [place] [address] [place] [address] 10/04/2021 00:00:00 10/04/2021 14:50:19 [id number] Erika hagen MD [facility]_John Internal Med [place] [address] [place] [address] [place] [address] 05/09/2022 00:00:00 05/09/2022 17:03:32 [id number] S_Histor ic_Gateway S_GMG [facility] [place] [address] [place] [address] 05/24/2022 00:00:00 05/24/2022 16:42:56 [id number] MD JULISA StrangeS_GMG Internal Med [place] [address] [place] [address] [place] [address] 05/30/2022 00:00:00 05/30/2022 16:14:55 [id number] Lora Miller MD [facility] Endo [place] [address] [place] [address] 07/12/2022 00:00:00 07/12/2022 12:16:51 [id number] Lora Miller MD [facility] [place] [address] [place] [address] 08/03/2022 00:00:00 08/03/2022 15:21:13 [id number] Erika hagen MD [facility] [address] [place] [address] [place] [address] 01/09/2023 16:00:38 01/10/2023 11:02:43 Tachycardia 7557385 R00.0 now off the labetalol since thyroid is in range Migraine without aura 56 551322 G43.009 on sumatripta n prn, she is aware of side effects/ri sks/benefi tscall office if no improvemen t with medsto ER if severe headache Intermitte nt palpitations 314082764 R00.2 follows cardiology - [facility] Generalize d anxiety disorder 98316323 F41.1 she had a reaction to the sertraline scripted by OBGYN (pacing floor, worsening anxiety)on buspar, she is aware of side effects, risks, benefitsre commend counseling - names[facility]numb ers [facility] office if any change in mood or behaviorsh e declines psychiatry referral Graves' disease 92945137 4 E05.01 follows endo- Dr. Lal PTU [id number] Erika hagen MD [facility] Internal Med [place] [address] [place] [address] 05/14/2023 09:53:16 05/14/2023 10:56:12 Tachycardia 1128532 R00.0 restart labetalolc all office in 1 week with update/ keep appt with endo Migraine without aura 56 979783 G43.009 on sumatripta n prn, she is aware of side effects/ri sks/benefi tscall office if no improvemen t with medsto ER if severe headache Intermitte nt palpitations 597387763 R00.2 follows cardiology - [facility] Generalize d anxiety disorder 10233932 F41.1 she had a reaction to the sertraline scripted by OBGYN (pacing floor, worsening anxiety)on buspar, she is aware of side effects, risks, benefitsre commend counseling - names/numb ers provided ([facility], brian)ca ll office if any change in mood or behaviorsh e declines psychiatry referral Graves' disease 46421718 4 E05.01 follows endo- has appt with new endo next week (was following Dr. Miller)on PTUER precaution s Acute left otitis media 879320225 H66.92 Start Z-Morgan Call office if no improvemen t after med [id number] Erika hagen MD [facility] Internal Med [place] [address] [facility] [address] [address] 08/20/2023 16:39:21 08/20/2023 17:16:44 Graves' disease 494882878 E05.01 Follows endocrinol ogy Diabetes m ellitus screening 096815741 Z13.1 Hyperlipid emia screening 410537881 Z13.220 Tachycardia 6872520 R00. 0 Generalize d anxiety disorder 99603769 F41.1 [id number] Erika hagen MD [facility] Internal Med [place] [address] [facility] [address] [address] 03/31/2024 10:58:53 03/31/2024 11:26:05 Hepatitis C screening 934231492 Z11.59 Diabetes m ellitus screening 475226253 Z13.1 Hyperlipid emia screening 071036864 Z13.220 Screening for disorder 558185326 Z13.9 Thyroid di sorder screening 108201460 Z13.29 Tachycardia 0143971 R00. 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 0 Motion sickness 75965321 T75.3XXA Health Concerns Section Related Observation LastModified by Organization Detai ls LastModified Time None Recorded Concern Status LastModified by Organization Details LastModified Time None Recorded Advance Directives Directive None Recorded Payers Insurance Date Sequence Insurance Name Policy Number Policy Warren Covered Member ID Warren Member ID Guarantor Name 08/18/2024 1 [facility] (PP[facility] [id number] Prosper Bishop [id number] Janene Bishop 08/18/2024 1 [facility] (MEDICAID HMO) [id number] Janene Joyner [id number] Janene Bishop Notes Date Note Type Note Provider Name and Address Organization Details Recorded Time 01/09/2023 text/html This is a telehealth visit conducted via telephone audio only. Patient agrees to telehealth visit. Janene presents today via telephone audio only for follow-up. She had her daughter about 2 weeks ago. She has been adjusting to life at home with 3 kids. She reports so far she feels like she is adjusting well. She is able to care for herself and her kids. She feels like her anxiety is well controlled on her buspirone. She feels like this is a good dose for her. She denies any SI or HI today. 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 She does continue to follow with endocrinology for the Graves disease. She continues on the PTU. She reports they recently dropped her dose as her thyroid has been in range. She is overall feeling much better since her thyroid is now better controlled. She has not had any more episodes of tachycardia. JACOB Newsome-Pablito [address] [facility], [address], [place], [address], [facility] [employer] 01/09/2023 16:24:36 05/14/2023 text/html Janene presents today for follow-up. She reports she has an appointment with her new box spring maker next week. She has been out of her labetalol so she has noticed a little bit more tachycardia. She reports on her watch, her heart rate can sometimes get up to the 120s or 130s. Denies any chest pain. She reports right now she is not having any the tachycardia. It tends to happen more in the afternoons after lunch. She reports that her anxiety is well controlled on the buspirone. She feels like this is a good dose for her. She denies any SI or HI today. She complains today of some left ear pain and some left-sided throat pain which she has had for about a week. She reports her rbvyjc-yj-fsf was sick with similar. Denies any fever, difficulty swallowing, difficulty breathing, or shortness of breath. Denies any ear drainage. Denies any difficulty hearing. JACOB Newsome-Pablito [address], [address], [facility] [employer] 05/14/2023 11:58:22 08/20/2023 text/html Janene presents today to establish care and medication refills. She states that she has not had any illness or injury since visit with previous provider. She states that her tachycardia has been under control with the labetalol. She states that she sees an box spring maker for her Graves disease and he monitors her levels and medication. She would also like to have a referral for cardiology due to palpitations and tachycardia. 05/14/2023dina presents today for follow-up. She reports she has an appointment with her new box spring maker next week. She has been out of her labetalol so she has noticed a little bit more tachycardia. She reports on her watch, her heart rate can sometimes get up to the 120s or 130s. Denies any chest pain. She reports right now she is not having any the tachycardia. It tends to happen more in the afternoons after lunch. She reports that her anxiety is well controlled on the buspirone. She feels like this is a good dose for her. She denies any SI or HI today. She complains today of some left ear pain and some left-sided throat pain which she has had for about a week. She reports her aqrkya-ih-igt was sick with similar. Denies any fever, difficulty swallowing, difficulty breathing, or shortness of breath. Denies any ear drainage. Denies any difficulty hearing. Prachi Worley APRN [address], [address], [place], [address], [employer] 08/20/2023 17:11:29 03/31/2024 text/html Janene presents today for 6 month follow up. She is needing her medication refilled. She will be going on a cruise this week and would like to have something to control nausea. 08/20/2023dina presents today to establish care and medication refills. She states that she has not had any illness or injury since visit with previous provider. She states that her tachycardia has been under control with the labetalol. She states that she sees an box spring maker for her Graves disease and he monitors her levels and medication. She would also like to have a referral for cardiology due to palpitations and tachycardia. 05/14/2023dina presents today for follow-up. She reports she has an appointment with her new box spring maker next week. She has been out of her labetalol so she has noticed a little bit more tachycardia. She reports on her watch, her heart rate can sometimes get up to the 120s or 130s. Denies any chest pain. She reports right now she is not having any the tachycardia. It tends to happen more in the afternoons after lunch. She reports that her anxiety is well controlled on the buspirone. She feels like this is a good dose for her. She denies any SI or HI today. She complains today of some left ear pain and some left-sided throat pain which she has had for about a week. She reports her tlghfa-ck-wsh was sick with similar. Denies any fever, difficulty swallowing, difficulty breathing, or shortness of breath. Denies any ear drainage. Denies any difficulty hearing. Prachi GarcianerCHADN [address], [place], [address], [employer] 03/31/2024 11:20:37 08/18/2024 text/html Janene presents today today for 6 month follow up. She states that she has been having pain that will come and go, mainly in her joints. She denies a history of autoimmune disorders. She states that it is bad in the morning. She states that she has been seeing her box spring maker for her Graves disease. They states that her numbers are improving. 4Cdina presents today for 6 month follow up. She is needing her medication refilled. She will be going on a cruise this week and would like to have something to control nausea. 4Cdina presents today to establish care and medication refills. She states that she has not had any illness or injury since visit with previous provider. She states that her tachycardia has been under control with the labetalol. She states that she sees an box spring maker for her Graves disease and he monitors her levels and medication. She would also like to have a referral for cardiology due to palpitations and tachycardia. Prachi Worley, MEMORIAL COUNSELOR [address] [facility], [facility] [address], [place], [address], [facility] [employer] 08/18/2024 12:58:25 OBGyn Episode No OBEpisode recorded.
[2025-06-04 15:49] LABS: Non Pathogenic Casts 0-2
[2025-06-04 16:09] LABS: Add Urine Microscopic? YES; Appearance Urine Cloudy (Clear)
[2025-06-04 16:10] LABS: Glucose Urine UA Negative (Negative); Leukocyte Esterase Ur Negative LEU/UL (Negative); Nitrate Urine Negative (Negative); Specific Grav Ur 1.015 (1.001-1.035)
[2025-06-04 16:12] LABS: Strep Group A RT-PCR NOT DETECTED (Negative)
[2025-06-04 16:12] LABS: Hematocrit 37.3 % (37.0-47.0); Hemoglobin 12.0 g/dL (12.0-15.0); Mean Corpuscular HGB Conc 32.2 g/dl (32-36); Mean Corpuscular Hemoglobin 28.8 pg (26-34); Mean Corpuscular Volume 89.7 fl (80-100); Platelet Count Result 188 k/mm3 (150-375); Red Blood Count 4.16 M/mm3 (4.2-5.4); White Blood Count 6.0 K/mm3 (4.5-10.0)
--- OUTSIDE RECORDS SUMMARY | 2025-06-04 16:21 | XMS_ITS | Clinical Summary ---
Author Organization [facility] Address [address] [place] [address] Care Team Providers Care Med Care Manager Name Role Phone Unavailable Primary Care Provider Unavailabl e Source Comments [facility],non-owned Affiliates and Associated Physician Practices is amultiple site organization consisting of ambulatory clinics and hospital sitesin [place], [place], [place] and [place]. This disclosure is being madepursuant to the Care Everywhere program and may not contain all information available regarding this patient. Last updated 18.[facility] Allergies Active Allergy Reactions Criticality Noted Date [...] naloxone HCl (Narcan) 4 MG/0.1ML nasal spray Arnett 1 (one) spray into the nose as [...] Department Care Team Description 05/17/2025 9:03 AM CLINICAL INTERVIEWER - 05/17/2025 11:59 PM CLINICAL INTERVIEWER Hospital Encounter [facility] [address] [place] [address] Lora Reece APRN-MIGRATION AGENT Discharge Disposition: Home or Self Care 05/17/2025 Travel 05/10/2025 Telephone [facility] [address] [place] [id number] Codie Amezquita RN Hospitalization; Hospital Follow-up 05/05/2025 4:46 PM CLINICAL INTERVIEWER Anesthesia Event [facility] [address] [place], [place] [id number] Russell Mejias MD McGee, Daniel, APRN-LIQUID SUGAR FORTIFIER 05/05/2025 Parent/Baby Shared Documentation [facility] - NICU [address] [place] [address] 05/05/2025 Surgery [facility] [address] [place] [id number] Samina Glasgow MD SECTION (EMERGENCY) 05/04/2025 4:33 PM CLINICAL INTERVIEWER - 05/09/2025 1:30 PM CLINICAL INTERVIEWER Hospital Encounter [facility] MOTHER/BABY [address] [place] [id number] Samina Glasgow MD Maternal Medicine Discharge Disposition: [...] drink = 0.6 oz pur e alcohol) [place] Depression Scale Answer Date Recorded [place] Depression Scale Total 7 05/17/2025 The thought of harming myself has occurred to me . Never 05/17/2025 Overall Financial Resource Strain (CARDIA) Answe r Date Recorded How hard is it for you to pa y for the very basics like food, housing, medical care, and heating? Not very hard 05/04/2025 [facility] - Occupational Stress Questionnaire Answer Date Recorded [...] any time in the past 12 m [facility], were you homeless or living in a assisted (including now)? No 05/04/2025 Education Answer Date [...] Comments Blood Pressure 126/71 05/17/2025 9:10 AM CLINICAL INTERVIEWER Pulse 88 05/17/2025 9:10 AM CLINICAL INTERVIEWER Temperature 36.8 C (98.2 F) 05/09/2025 8:25 AM CLINICAL INTERVIEWER Respiratory Rate 16 05/09/2025 8:25 AM CLINICAL INTERVIEWER Oxygen Saturation 100% 05/09/2025 8:25 AM CLINICAL INTERVIEWER Inhaled Oxygen Concentration - - Weight 52 kg (114 lb 9.6 oz) 05/17/2025 9:05 AM CLINICAL INTERVIEWER Height 154.9 cm (5' 1) 05/04/2025 4:51 PM CLINICAL INTERVIEWER Body Mass Index 21.65 05/04/2025 4:51 PM CLINICAL INTERVIEWER Plan of Treatment Health Maintenance Due Date [...] SLIDE SCAN HEMATOLOGY Routine 05/06/2025 4:48 PM CLINICAL INTERVIEWER CBC W AUTO DIFFERENTIAL Routine 05/06/20 4:48 PM CLINICAL INTERVIEWER TRANSFUSE RED BLOOD CELL LEUKOREDUCED UNIT(S) Routine 05/06/2025 10:49 AM CLINICAL INTERVIEWER TRANSFUSE RED BLOOD CELL LEUKOREDUCED UNIT(S) Routine 05/06/2025 6:27 AM CLINICAL INTERVIEWER SCREEN Routine 05/06/2025 4:31 AM CLINICAL INTERVIEWER CBC W/O DIFFERENTIAL AM Draw 05/06/2025 4:31 AM CLINICAL INTERVIEWER BLOOD GASES CORD ANA (ISTAT) Routine 05/05/2025 6:09 PM CLINICAL INTERVIEWER BLOOD GASES CORD ART (ISTAT) Routine 05/05/2025 6:06 PM CLINICAL INTERVIEWER ENDOTRACHEAL TUBE NOTE Routine 5:25 PM CLINICAL INTERVIEWER COAGULATION PANEL W D-DIMER STAT 05/05/2025 5:15 PM CLINICAL INTERVIEWER COMPREHENSIVE METABOLIC PANEL STAT 05/05/2025 5:10 PM CLINICAL INTERVIEWER CBC W/O DIFFERENTIAL STAT 05/05/2025 5:10 PM CLINICAL INTERVIEWER PATHOLOGY TISSUE EXAM (STL) Routine 05/05/2025 5:02 PM CLINICAL INTERVIEWER Diagnosis unknown CBC W AUTO DIFFERENTIAL STAT 05/05/20 4:40 PM CLINICAL INTERVIEWER COAGULATION PANEL W D-DIMER STAT 05/05/2025 4:40 PM CLINICAL INTERVIEWER Vaginal bleeding in (HCC) CULTURE STREP B STAT 05/05/2025 1:06 PM CLINICAL INTERVIEWER COAGULATION PANEL W D-DIMER STAT 05/05/2025 12:02 PM CLINICAL INTERVIEWER FERRITIN STAT 05/05/2025 12:02 PM CLINICAL INTERVIEWER CBC W/O DIFFERENTIAL STAT 05/05/2025 12:02 PM CLINICAL INTERVIEWER SONOGRAM - COMPLETE Routine 05/05/2025 8 :01 AM CLINICAL INTERVIEWER BLOOD TYPE VERIFICATION Routine 05/04/20 7:33 PM CLINICAL INTERVIEWER PREPARE RBC LEUKOREDUCED UNIT Routine 05/04/2025 6:22 PM CLINICAL INTERVIEWER ANTIBODY IDENTIFICATION Routine 05/04/20 6:22 PM CLINICAL INTERVIEWER PREPARE RBC LEUKOREDUCED UNIT Routine 05/04/2025 6:22 PM CLINICAL INTERVIEWER TYPE + SCREEN PANEL Routine 05/04/2025 6 :22 PM CLINICAL INTERVIEWER TSH REFLEX FREE T4 Routine 05/04/2025 6: 22 PM CLINICAL INTERVIEWER Vaginal bleeding in (HCC) COMPREHENSIVE METABOLIC PANEL STAT 05/04/2025 6:22 PM CLINICAL INTERVIEWER Vaginal bleeding in (HCC) CBC W AUTO DIFFERENTIAL STAT 05/04/20 6:22 PM CLINICAL INTERVIEWER Vaginal bleeding in (HCC) COAGULATION PANEL W D-DIMER STAT 05/04/2025 6:22 PM CLINICAL INTERVIEWER Vaginal bleeding in (HCC) KLEIHAUER BETKE STAIN STAT 05/04/2025 6:22 PM CLINICAL INTERVIEWER Vaginal bleeding in (HCC) SECTION (EMERGENCY) Placenta previa from Last 3 Months Results * SLIDE SCAN HEMATOLOGY (05/06/2025 4:48 PM CLINICAL INTERVIEWER) Pathologist [facility] RBC Morphology NORMAL 05/06/2025 5:20 PM CLINICAL INTERVIEWER [facility] Blood BLOOD SPECIMEN / Unknown Lab Venipuncture / Unknown 05/06/2025 4:48 PM CLINICAL INTERVIEWER 05/06/2025 4:51 PM CLINICAL INTERVIEWER us Samina Glasgow MD LAB - HEMATOLOGY ORDERABLES Fin al Result [facility] [address] [place] [id number] * (ABNORMAL) CBC W AUTO DIFFERENTIAL (05/06/2025 4:48 PM CLINICAL INTERVIEWER) Only the most recent of3 resultswithin the time period is included. WBC 14.5(H) 4.0 - 10.7 x10E9/L 05/06/2025 5:20 PM [facility] RBC Count 2.93(L) 3.90 - 5.20 x10E12/L 05/06/2025 5:20 PM [facility] Hemoglobin 8.7(L) 11.9 - 15.8 g/dL 05/06/2025 5:20 PM [facility] Hematocrit 26.4(L) 34.8 - 46.1 % 05/06/2025 5:20 PM [facility] MCV 90.1 80.0 - 98.0 fL 05/06/2025 5:20 PM [facility] MCH 29.7 26.7 - 33.6 pg 05/06/2025 5:20 PM [facility] MCHC 33.0 31.7 - 36.3 g/dL 05/06/2025 5:20 PM [facility] RDW-CV 14.3 11.3 - 14.8 % 05/06/2025 5:20 PM [facility] Platelet Count 154 150 - 420 x10E9/L 05/06/2025 5:20 PM [facility] MPV 9.4 7.8 - 11.4 fL 05/06/2025 5:20 PM [facility] Neutrophil % 74.0 41.0 - 74.0 % 05/06/2025 5:20 PM [facility] Lymphocyte % 12.9(L) 17.0 - 47.0 % 05/06/2025 5:20 PM [facility] Monocyte % 11.0 3.0 - 11.0 % 05/06/2025 5:20 PM [facility] Eosinophil % 0.1 0.0 - 7.0 % 05/06/2025 5:20 PM [facility] Basophil % 0.1 0.0 - 1.6 % 05/06/2025 5:20 PM [facility] Immature Granulocytes % 1.9(H) 0.0 - 1.0 % 05/06/2025 5:20 PM [facility] Neutrophil Absolute 10.72(H) 1.60 - 7.50 x10E9/L 05/06/2025 5:20 PM [facility] Lymphocyte Absolute 1.87 1.00 - 4.40 x10E9/L 05/06/2025 5:20 PM CLINICAL INTERVIEWER [facility] Monocyte Absolute 1.59(H) 0.15 - 1.00 x10E9/L 05/06/2025 5:20 PM CLINICAL INTERVIEWER [facility] Eosinophil Absolute 0.01 0.00 - 0.60 x10E9/L 05/06/2025 5:20 PM CLINICAL INTERVIEWER [facility] Basophil Absolute 0.02 0.00 - 0.13 x10E9/L 05/06/2025 5:20 PM CLINICAL INTERVIEWER [facility] Blood BLOOD SPECIMEN / Unknown Lab Venipuncture / Unknown 05/06/2025 4:48 PM CLINICAL INTERVIEWER 05/06/2025 4:51 PM CLINICAL INTERVIEWER us Samina Glasgow MD LAB - HEMATOLOGY ORDERABLES Fin al Result Performing Organization Address [facility] Co de Phone Number [facility] [address] [place] [address] * TRANSFUSE RED BLOOD CELL LEUKOREDUCED UNIT(S) (05/06/2025 1:21 PM CLINICAL INTERVIEWER) us Samina Glasgow MD NURSING - BLOOD PROD TRANSFUSIO N Final Result * TRANSFUSE RED BLOOD CELL LEUKOREDUCED UNIT(S) (05/06/2025 9:09 AM CLINICAL INTERVIEWER) us Samina Glasgow MD NURSING - BLOOD PROD TRANSFUSIO N Final Result * SCREEN (05/06/2025 4:31 AM CLINICAL INTERVIEWER) Screen Qualitative NEG 05/06/2025 6:01 AM CLINICAL INTERVIEWER [facility] Blood Bank BLOOD SPECIMEN / Unknown Lab Venipuncture / Unknown 05/06/2025 4:31 AM CLINICAL INTERVIEWER 05/06/2025 4:43 AM CLINICAL INTERVIEWER us Samina Glasgow MD LAB - BLOOD BANK ORDERABLES Fin al Result Performing Organization Address City/[facility]/ZIP Co de Phone Number [facility] [address] [place], [place] [address] [phone] * (ABNORMAL) CBC W/O DIFFERENTIAL (05/06/2025 4:31 AM CLINICAL INTERVIEWER) Only the most recent of3 resultswithin the time period is included. WBC 14.4(H) 4.0 - 10.7 x10E9/L 05/06/2025 4:58 AM [facility] RBC Count 1.94(L) 3.90 - 5.20 x10E12/L 05/06/2025 4:58 AM [facility] Hemoglobin 5.8(LL) 11.9 - 15.8 g/dL 05/06/2025 4:58 AM [facility] Hematocrit 18.0(L) 34.8 - 46.1 % 05/06/2025 4:58 AM [facility] MCV 92.8 80.0 - 98.0 fL 05/06/2025 4:58 AM [facility] MCH 29.9 26.7 - 33.6 pg 05/06/2025 4:58 AM [facility] MCHC 32.2 31.7 - 36.3 g/dL 05/06/2025 4:58 AM [facility] RDW-CV 13.6 11.3 - 14.8 % 05/06/2025 4:58 AM [facility] Platelet Count 160 150 - 420 x10E9/L 05/06/2025 4:58 AM [facility] MPV 9.8 7.8 - 11.4 fL 05/06/2025 4:58 AM [facility] Blood BLOOD SPECIMEN / Unknown Lab Venipuncture / Unknown 05/06/2025 4:31 AM CLINICAL INTERVIEWER 05/06/2025 4:43 AM [facility] us Samina Glasgow MD LAB - HEMATOLOGY ORDERABLES Fin al Result [facility] [address] [place] [address] * (ABNORMAL) BLOOD GASES CORD ANA (ISTAT) (05/05/2025 6:09 PM CLINICAL INTERVIEWER) pH Cord Venous POCT 7.32 7.28 - 7.40 pH 05/05/2025 6:04 PM [facility] pCO2 Cord Venous POCT 36.9 35 - 45 mm hg 05/05/2025 6:04 PM [facility] pO2 Cord Venous POCT 29 22 - 33 mm hg 05/05/2025 6:04 PM [facility] HCO3 Cord Arterial POCT 19.2(L) 22 - 24 mmol/L 05/05/2025 6:04 PM [facility] BE Cord Venous POCT Calc -6 -6.4 - 1.6 mmol/L 05/05/2025 6:04 PM [facility] TCO2 Cord Venous POCT 20(L) 22 - 30 mmol/L 05/05/2025 6:04 PM [facility] O2 Saturation % Cord Venous Calc POCT 50 % 05/05/2025 6:04 PM [facility] Site CORD ANA 05/05/2025 6:04 PM [facility] Sample iSTAT CORD ANA 05/05/2025 6:04 PM [facility] Blood CORD BLOOD SPECIMEN / Unknown 05/05/2025 6:09 PM CLINICAL INTERVIEWER 05/05/2025 6:04 PM [facility] Samina Glasgow MD LAB - POINT OF CARE ORDERABLES Final Result Performing Organization Address City/State/[facility] Co de Phone Number [facility] [address] [place], [place] [phone] * (ABNORMAL) BLOOD GASES CORD ART (ISTAT) (05/05/2025 6:06 PM CLINICAL INTERVIEWER) pH Cord Arterial POCT 7.27 7.20 - 7.34 pH 05/05/2025 6:01 PM [facility] pCO2 Cord Arterial POCT 47.5 45 - 55 mm hg 05/05/2025 6:01 PM [facility] pO2 Cord Arterial POCT 17 12 - 25 mm hg 05/05/2025 6:01 PM [facility] HCO3 Cord Arterial POCT 21.7(L) 22 - 24 mmol/L 05/05/2025 6:01 PM [facility] BE Cord Arterial POCT -6(L) -2.9 - 8.3 mmol/L 05/05/2025 6:01 PM [facility] TCO2 Cord Arterial POCT 23 mmol/L 05/05/2025 6:01 PM CLINICAL INTERVIEWER [facility] O2 Saturation Cord Art % Calc POCT 20 % 05/05/2025 6:01 PM CLINICAL INTERVIEWER [facility] Site CORD ART 05/05/2025 6:01 PM CLINICAL INTERVIEWER [facility] Sample iSTAT CORD ART 05/05/2025 6:01 PM CLINICAL INTERVIEWER [facility] Blood CORD BLOOD SPECIMEN / Unknown 05/05/2025 6:06 PM CLINICAL INTERVIEWER 05/05/2025 6:01 PM CLINICAL INTERVIEWER us Samina Glasgow MD LAB - POINT OF CARE ORDERABLES Final Result [facility] [address] [place], [place] [id number] * ETT LINE PERFORMABLE (05/05/2025 5:25 PM CLINICAL INTERVIEWER) Narrative Cecil Song APRN-CRNA - 05/05/2025 5:25 PM CLINICAL INTERVIEWER Cecil Song APRN-CRNA 05/05/2025 5:26 PM Endotracheal Tube Placement: Patient Location: OR. Intubation Event Date/Time: 05/05/2025 4:52 PM Procedure: intubation ([id number]) Procedure Section: Sedation: under general anesthesia. Indications for Airway Management: anesthesia Procedure pretreatments used? Nursing documentation on the [facility] Procedure Pretreatments (manual): 100% O2 Induction: rapid [...] COAGULATION PANEL W D-DIMER (05/05/2025 5:15 PM CLINICAL INTERVIEWER) Only the most recent of4 resultswithin the time period is included. PT 15.3(H) 12.1 - 14.8 sec 05/05/2025 6:35 PM [facility] INR 1.2(H) 0.9 - 1.1 05/05/2025 6:35 PM [facility] PTT 23.9 23.0 - 38.4 sec 05/05/2025 6:35 PM [facility] Fibrinogen 333 200 - 400 mg/dL 05/05/2025 6:35 PM [facility] D-Dimer 1.22(H) 0.27 - 0.50 ug/mL FEU 05/05/2025 6:35 PM [facility] Platelet Count 233 150 - 420 x10E9/L 05/05/2025 6:35 PM [facility] Blood BLOOD SPECIMEN / Unknown Venipuncture / Unknown 05/05/2025 5:15 PM CLINICAL INTERVIEWER 05/05/2025 5:22 PM CLINICAL INTERVIEWER Narrative [facility] - 05/05/2025 6:35 PM CLINICAL INTERVIEWER Conventional Warfarin Anticoagulant Therapy INR Reference Range: [...] LAB - COAGULATION ORDERABLES Fi nal Result [facility] [address] [place] [address] * (ABNORMAL) COMPREHENSIVE METABOLIC PANEL (05/05/2025 5:10 PM CLINICAL INTERVIEWER) Only the most recent of2 resultswithin the time period is included. Glucose 138(H) 70 - 99 mg/dL 05/05/2025 5:42 PM [facility] Sodium 137 136 - 145 mmol/L 05/05/2025 5:42 PM [facility] Potassium 3.7 3.5 - 5.1 mmol/L 05/05/2025 5:42 PM [facility] Chloride 113(H) 98 - 107 mmol/L 05/05/2025 5:42 PM [facility] CO2 15(L) 22 - 29 mmol/L 05/05/2025 5:42 PM [facility] Calcium 7.7(L) 8.4 - 10.4 mg/dL 05/05/2025 5:42 PM [facility] Anion Gap 9 6 - 16 mmol/L 05/05/2025 5:42 PM [facility] BUN 6 5.3 - 18.7 mg/dL 05/05/2025 5:42 PM [facility] Creatinine 0.50 0.50 - 1.00 mg/dL 05/05/2025 5:42 PM [facility] Alkaline Phosphatase 68 40 - 150 U/L 05/05/2025 5:42 PM [facility] ALT <6(L) 6 - 57 U/L 05/05/2025 5:42 PM [facility] AST 16 10 - 48 U/L 05/05/2025 5:42 PM [facility] Protein Total 5.4(L) 6.4 - 8.3 gm/dL 05/05/2025 5:42 PM [facility] Albumin 2.4(L) 3.1 - 4.5 gm/dL 05/05/2025 5:42 PM [facility] Bilirubin Total 0.4 0.2 - 1.2 mg/dL 05/05/2025 5:42 PM [facility] eGFR by CKD-EPI >90 >=90 mL/min/1.7 3 m2 05/05/2025 5:42 PM [facility] Comment:Estimated Glomerular Filtration Rate (eGFR) calculated using the CKD-EPI Creatinine Equation (2020), per the National Kidney Foundation and [place] [employer]ph[employer] recommendations. Blood BLOOD SPECIMEN / Unknown Venipuncture / Unknown 05/05/2025 5:10 PM CLINICAL INTERVIEWER 05/05/2025 5:22 PM CLINICAL INTERVIEWER us Samina Glasgow MD LAB - CHEMISTRY ORDERABLES Dilcia jay Result [facility] [address] [place] [address] * PATHOLOGY TISSUE EXAM (STL) (05/05/2025 5:02 PM CLINICAL INTERVIEWER) Case Report Surgical Pathology Report Case: [id number] Authorizing Provider: Samina Glasgow MD Collected: 05/05/2025 05:02 PM Ordering Location: [facility] Received: 05/07/2025 09:57 AM Pathologist: Tiffanie Barr MD Specimen: Placenta 05/10/2025 10:32 AM [facility] Final Diagnosis Placenta, delivery - Small, hypermature placenta (weight <10th percentile for gestational age) - membranes with no histopathologic abnormality - Three-vessel umbilical cord with no histopathologic abnormality 05/10/2025 10:32 AM [facility] at 1032 CLINICAL INTERVIEWER Clinical History The patient is a 34-year-old woman at 32 weeks, 3 days gestation. Procedure: section. 05/10/2025 10:32 AM [facility] Gross Description The requisition and specimen(s) [...] No discrete masses or lesions are identified. Visual Basic .Net Developer sections are submitted as follows: A1- Membrane roll and umbilical cord A2- Central parenchyma, full thickness A3- Peripheral parenchyma, full thickness./ANC 05/10/2025 10:32 AM [facility] Microscopic Description Microscopic examination substantiates the above diagnosis. 05/10/2025 10:32 AM [facility] Pathologist Location at [facility] 05/10/2025 10:32 AM [facility] Disclaimer All histochemical and/or immunohistochemical results are interpreted with controls that demonstrate appropriate staining reactions before reporting results. Note on use of immunocytochemistry reagents: This test was developed and its performance characteristic determined by [facility], Department of Laboratory Medicine. It has not [...] be interpreted with caution. 05/10/2025 10:32 AM [facility] Embedded Images 05/10/2025 10:32 AM [facility] Pathology/Cytolo gy ENTIRE PLACENTA / Unknown 05/05/2025 5:02 PM CLINICAL INTERVIEWER 05/07/2025 9:57 AM CLINICAL INTERVIEWER Comment:Pre-op diagnosis: Placenta previa Samina Glasgow MD LAB - PATHOLOGY/CYTOLOGY ORDERA BLES Final Result [facility] [address] [place] [address] * (ABNORMAL) CULTURE STREP B (05/05/2025 1:06 PM CLINICAL INTERVIEWER) Culture Strep B Growth of Streptococcus agalactiae (Group B)(AA) RAYMOND 05/07/2025 9:15 AM [facility] Microbiology MISCELLANEOUS SAMPLES / Unknown Collection / Unknown 05/05/2025 1:06 PM CLINICAL INTERVIEWER 05/05/2025 1:21 PM CLINICAL INTERVIEWER Narrative [facility] - 05/07/2025 9:15 AM CLINICAL INTERVIEWER Susceptibility testing of penicillin, other beta-lactam antibiotics, [...] ORDERABLES F inal Result Performing Organization Address City/[facility]/ZIP Co de Phone Number [facility] [address] [place] [address], [facility] [phone] * FERRITIN (05/05/2025 12:02 PM CLINICAL INTERVIEWER) Ferritin 8 5 - 204 ng/mL 05/05/2025 1:49 PM CLINICAL INTERVIEWER [facility] Blood BLOOD SPECIMEN / Unknown Lab Venipuncture / Unknown 05/05/2025 12:02 PM CLINICAL INTERVIEWER 05/05/2025 12:21 PM CLINICAL INTERVIEWER us Samina Glasgow MD LAB - CHEMISTRY ORDERABLES Dilcia l Result Performing Organization Address City/[facility]/ZIP Co de Phone Number [facility] [address] [place] [address] * Sonogram - Complete (05/05/2025 8:01 AM CLINICAL INTERVIEWER) Linked Results Indication ======== Grave?s disease w/o thyroid storm Hyperthyroidism complicating Complete placenta previa with hemorrhage Vaginal bleeding started yesterday with contractions labor (PTL) < 37 weeks anatomy evaluation Vaginal bleeding, unspecified trimester History ====== OB History 5. Para 3 [id number] 1. live 2018. Gest. age 37 w [...] 4 lb 2 oz EFW by Hadlock ([id number]) appropriate, BPD skewed by head position Growth [...] view. RVOT view. LVOT view. 3-vessel view. 9-jaysut-etyxhzh view. Great vessels. Right lung. Left lung. [...] Z36.3: Encounter for screening for malformations Procedures 90814: US Preg Uterus Detailed 36849: US Preg Uterus Transvaginal Forums™ Network PACS Anatomical Region Laterality Modality Other 05/05/2025 8:01 AM CLINICAL INTERVIEWER us Samina Glasgow MD [facility] ORDERABLES Edited Result - Final * BLOOD TYPE VERIFICATION (05/04/2025 7:33 PM CLINICAL INTERVIEWER) ABO Rh O NEG 05/04/2025 8:2 5 PM CLINICAL INTERVIEWER [facility] Blood Bank BLOOD SPECIMEN / Unknown Lab Venipuncture / Unknown 05/04/2025 7:33 PM CLINICAL INTERVIEWER 05/04/2025 7:44 PM CLINICAL INTERVIEWER us Samina Glasgow MD LAB - BLOOD BANK ORDERABLES Fin al Result [facility] [address] [place] [address] * PREPARE (CROSSMATCH) RBC UNIT(S), 2 Units (05/04/2025 6:22 PM CLINICAL INTERVIEWER) Only the most recent of2 resultswithin the time period is included. Unit Description AS1 LR PRBC [facility] Unit ABO O [facility] Unit Rh NEG [facility] Product Number R02 [facility] Unit Donor # [id number] [facility] Unit Status released [facility] Product Code [id number] [facility] Blood Type Barcode 9500 [facility] Expiration Date S [facility] Unit Description AS1 LR PRBC [facility] ABO O [facility] Unit Rh NEG [facility] Product Number R02 [facility] Donor # [id number] [facility] Unit Status transfused [facility] Product Code [id number] [facility] Blood Type Barcode 9500 [facility] Expiration Date S [facility] Blood Bank BLOOD SPECIMEN / Unknown 05/04/2025 6:22 PM CLINICAL INTERVIEWER 05/04/2025 7:10 PM CLINICAL INTERVIEWER us Samina Glasgow MD LAB - BLOOD BANK ORDERABLES Fin al Result Performing Organization Address [facility] Co de Phone Number [facility] [address] [place] [address] * TSH REFLEX FREE T4 (05/04/2025 6:22 PM CLINICAL INTERVIEWER) Pathologist [facility] TSH 0.776 0.350 - 4.940 uIU/mL 05/04/2025 8:00 PM CLINICAL INTERVIEWER [facility] LABORATORY Blood BLOOD SPECIMEN / Unknown Venipuncture / Unknown 05/04/2025 6:22 PM CLINICAL INTERVIEWER 05/04/2025 7:10 PM CLINICAL INTERVIEWER us Samina Glasgow MD LAB - CHEMISTRY ORDERABLES Dilcia l Result [facility] [address] [place] [address] * KLEIHAUER BETKE STAIN (05/04/2025 6:22 PM CLINICAL INTERVIEWER) Number Cells Counted 0 05/04/2025 8:47 PM CLINICAL INTERVIEWER [facility] Number of Maternal Cells 4,000 05/04/2025 8:47 PM CLINICAL INTERVIEWER [facility] % Cells 0.00 % 05/04/2025 8:47 PM CLINICAL INTERVIEWER [facility] Number of Vials 1 05/04/2025 8:47 PM CLINICAL INTERVIEWER [facility] /Maternal Ratio 0.0000 <=0.0000 05/04/2025 8:47 PM CLINICAL INTERVIEWER [facility] Blood BLOOD SPECIMEN / Unknown Venipuncture / Unknown 05/04/2025 6:22 PM CLINICAL INTERVIEWER 05/04/2025 7:10 PM CLINICAL INTERVIEWER [facility] LABORATORY - 05/04/2025 8:47 PM CLINICAL INTERVIEWER RhoD Immune Globulin Dosing Chart /Adult ratio [...] ORDERABLES Fin al Result Performing Organization Address [facility] Co de Phone Number [facility] [address] [place] [address] * TYPE + SCREEN PANEL (05/04/2025 6:22 PM CLINICAL INTERVIEWER) ABO Rh O NEG 05/04/2025 8:30 PM CLINICAL INTERVIEWER [facility] Comment:No history; collect retype. Antibody Screen NEG 8:30 PM CLINICAL INTERVIEWER [facility] Blood Bank BLOOD SPECIMEN / Unknown Venipuncture / Unknown 05/04/2025 6:22 PM CLINICAL INTERVIEWER 05/04/2025 7:10 PM CLINICAL INTERVIEWER us Samina Glasgow MD LAB - BLOOD BANK ORDERABLES Fin al Result Performing Organization Address [facility] Co de Phone Number [facility] [address] [place] [address] * ANTIBODY IDENTIFICATION (05/04/2025 6:22 PM CLINICAL INTERVIEWER) Antibody 1 POS, Anti-D Passive, RhIg Given 05/04/2025 8:31 PM CLINICAL INTERVIEWER [facility] Blood Bank BLOOD SPECIMEN / Unknown Venipuncture / Unknown 05/04/2025 6:22 PM CLINICAL INTERVIEWER 05/04/2025 7:10 PM CLINICAL INTERVIEWER us Samina Glasgow MD LAB - BLOOD BANK ORDERABLES Fin al Result Performing Organization Address [facility] Co de Phone Number [facility] [address] [place] [address] from Last 3 Months Insurance ANTH * Guarantor: [employer] Account Type Relation to Patient Date of Phone Billing Address Personal/Family Spouse Advance Directives * Full Code (Latest Code Status on File) Date Activated Date Inactivated Comments 05/04/2025 6:08 PM 05/09/2025 2:41 PM
--- OUTSIDE RECORDS SUMMARY | 2025-06-04 16:21 | XMS_ITS | Clinical Summary ---
Author Organization [address] lt Address [address] [place] [address] Care Team Providers Care Dustless Operator Name Role Phone Cecil Dowling MD Primary Care Provider [phone] No, Physician Unavailable Allergies Active Allergy Reactions [...] Description 03/15/2025 8:30 AM CDT Office Visit [facility] [address] [place] [address] Justine Moreno, ADEBAYO Abrasion of left cornea, [...] patient's age to complete this topic Insurance [facility] BL CHOICE PRF PPO [place] Care Teams Dustless Operator Relationship Specialty Start Date End Date Cecil Dowling MD [address] [place] [address] PCP - General Family Medicine 11/23/20 No, Physician 11/23/20
[2025-06-04 16:24] LABS: Influenza A QL RT-PCR Negative (Negative); Influenza B QL RT-PCR Negative (Negative); RSV RNA, RT-PCR Negative (Negative); SARS-CoV-2 RNA PCR Negative (Negative)
[2025-06-04 16:29] LABS: Alanine Aminotransferase 26 U/L (6-35); Albumin Level 4.7 g/dL (3.5-5.1); Alkaline Phosphatase 86 U/L (38-126); Anion Gap 11 mmol/L (4-12); Aspartate Amino Transferase 33 U/L (14-36); Bilirubin,Total 0.5 mg/dL (0.2-1.3); Blood Urea Nitrogen 6 mg/dL (7-17); Calcium 9.8 mg/dL (8.4-10.2); Carbon Dioxide 22 mmol/L (22-30); Chloride 109 mmol/L (98-107); Estimated CRCL calculation 104 ml/min; Estimated Glomerular Filt Rate > 60; Glucose 95 mg/dL (65-110); Potassium 3.5 mmol/L (3.4-5.0); Sodium 142 mmol/L (137-145); Total Protein 8.5 g/dL (6.3-8.2)
[2025-06-04 16:33] LABS: Band Neutrophils Percent 2 % (0-6); Basophils Absolute Manual 0.06 K/mm3 (0.0-0.1); Basophils Percent Manual 1 % (0-1); Eosinophils Absolute Manual 0.06 K/mm3 (0.02-0.50); Eosinophils Percent Manual 1 % (0-4); Lymphocytes Absolute Manual 1.74 K/mm3 (1.1-4.5); Lymphocytes Percent Manual 29 % (18-44); Monocytes Absolute Manual 0.30 K/mm3 (0.1-0.90); Monocytes Percent Manual 5 % (3-9); Neutrophils Absolute Manual 3.84 K/mm3 (1.3-6.7); Neutrophils Percent Manual 62 % (46-73); Total Cells Counted 100
[2025-06-04 16:34] LABS: Burr Cells Occasional; Schistocytes None Seen
[2025-06-04 17:23] LABS: Beta HCG Quantitative 17.65 mIU/ML
--- NOTE | 2025-06-04 17:28 | ED.GENADULT ---
HPI - General Adult General Chief complaint: Recheck/Abnormal Lab/Rx Stated complaint: bleeding post Time Seen by Provider: 06/04/25 15:37 History of Present Illness HPI narrative: Patient is a 34-year-old female who presents ER with vaginal bleeding. She had a 1 month ago at 32 weeks due to placenta previa. She has been doing well. She began having vaginal bleeding on 05/31/2025. Initially spotting and dark but has now increased in amount and has become more bright red. No fevers or chills or sweats. No loss of consciousness. No vaginal discharge. No urinary frequency urgency or dysuria. She has not been sexually active. Her OB is Dr. Lu. Patient is also been having some sore throat and runny nose. Multiple people in her home have strep throat. Related Data Home Medications ?Medication ?Instructions ?Recorded ?Confirmed ?Last Taken ?Type famotidine 20 mg tablet (Acid 20 mg PO DAILY PRN heartburn 05/04/25 06/01/25 05/02/25 History Controller) Allergies Allergy/AdvReac Type Severity Reaction Status Date / Time Penicillins Allergy Severe Hives Verified 06/04/25 11:43 amoxicillin Allergy Intermediate Hives Verified 06/04/25 11:43 Review of Systems Review of Systems: All systems reviewed & are unremarkable except as noted in HPI and below Constitutional: Constitutional: Reports no additional constitutional complaints ENT: Reports system reviewed and no additional complaints, except as documented Gastrointestinal: Gastrointestinal: Reports no additional gastrointestinal complaints Genitourinary: Genitourinary: Reports no additional female genitourinary complaints [facility] Past Medical History Medical History Suppression of menses Thyroid disease Hyperlipidemia Anxiety Healthy female adult Surgical History Surgical History Delivery by section (12/27/22) Delivery by section (09/02/19) Delivery by section (04/07/18) Family History Family History Sibling Graves disease Alex's disease Grandparent Heart disease Hypertension Father Asthma Mother Hypertension Other Unknown family medical history Social History Social History (Reviewed 05/03/25 @ 13:57 by JANIS Charles Smoking status: Never smoker Second hand tobacco smoke exposure: Yes Alcohol intake: never Substance use: never Substance use type: does not use Lack of Transportation: No Lack of Food: Never True Current Housing: I Have Housing Concerned About Future Housing: No Difficulty Paying Gas/Electric Bills: No Difficulty Paying for Meds: No Currently Unemployed: No Education: High School Diploma/GED Difficulty w/ Childcare or Family Care: No Living arrangements: with family Additional living arrangements comments: Occupation/Education: 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 HEAD: Normocephalic, atraumatic. ENT: Mucous membranes moist. CHEST: Clear to auscultation. No respiratory distress. HEART: Regular rate and rhythm. Normal peripheral pulses. ABDOMEN: Soft, nontender, nondistended. Midline vertical scar healing well. : Normal external genitalia. Speculum exam with small amount pulling blood in the posterior vaginal vault. The cervix is closed but using some mucus and bright red blood. No overt hemorrhage. No tears. No discharge. Nontender on exam. EXTREMITIES: Normal range of motion. No edema. SKIN: Warm, dry, no rash. NEURO: N Alert and oriented x3. PSYCH: Normal mood and affect. Course Course Emergency Course: Patient resting comfortably. Informed of retained products of conception diagnosis. Dr. Mejias has been contacted like the patient admitted to his service and then he will take her to the OR in the morning. Patient will be NPO at midnight. No anemia. Vital Signs Vital signs: Vital Signs Temperature 97.4 F L 06/04/25 11:45 Pulse Rate 92 06/04/25 11:45 Respiratory Rate 16 06/04/25 11:45 Blood Pressure 122/77 06/04/25 11:45 Pulse Oximetry 100 06/04/25 11:45 Oxygen Delivery Room Air 06/04/25 11:45 Temperature 97.4 F L 06/04/25 11:45 Pulse Rate 91 06/04/25 18:16 Respiratory Rate 14 06/04/25 18:16 Blood Pressure 129/71 06/04/25 18:16 Pulse Oximetry 98 06/04/25 18:16 Oxygen Delivery Room Air 06/04/25 11:45 [facility] Differential Diagnosis Differential Diagnosis: Menorrhagia, , retained products of conception, menstrual cycle, intravaginal tear. Lab Data [facility] Lab Attestation statement: I personally reviewed the patient's lab results. 06/04/25 16:03 06/04/25 16:03 Labs: Lab Results 06/04/25 06/04/25 06/04/25 Range/Units 15:38 15:41 16:03 WBC 6.0 (4.5-10.0) K/mm3 RBC 4.16 L (4.2-5.4) M/mm3 Hgb 12.0 (12.0-15.0) g/dL Hct 37.3 (37.0-47.0) % MCV 89.7 (80-100) fl MCH 28.8 (26-34) pg MCHC 32.2 (32-36) g/dl RDW 13.2 (11.5-14.5) % Plt Count 188 (150-375) k/mm3 MPV 9.6 (7.4-10.4) fl Immature Gran % (Auto) Not Reportable Neut % (Auto) Not Reportable Lymph % (Auto) Not Reportable Giles % (Auto) Not Reportable Eos % (Auto) Not Reportable Baso % (Auto) Not Reportable Lymph # (Auto) Not Reportable Giles # (Auto) Not Reportable Eos # (Auto) Not Reportable Baso # (Auto) Not Reportable Abs Immat Gran (auto) Not Reportable Absolute Neuts (auto) Not Reportable Absolute Nucleated RBC Not Reportable Total Counted 100 Neutrophils % (Manual) 62 (46-73) % Band Neutrophils % 2 (0-6) % Lymphocytes % (Manual) 29 (18-44) % Monocytes % (Manual) 5 (3-9) % Eosinophils % (Manual) 1 (0-4) % Basophils % (Manual) 1 (0-1) % Nucleated RBC % Not Reportable Abs Neuts (Manual) 3.84 (1.3-6.7) K/mm3 Abs Lymphs (Manual) 1.74 (1.1-4.5) K/mm3 Abs Monocytes (Manual) 0.30 (0.1-0.90) K/mm3 Absolute Eos (Manual) 0.06 (0.02-0.50) K/mm3 Abs Basophils (Manual) 0.06 (0.0-0.1) K/mm3 Platelet Estimate Adequate (Adequate) [place] Cells Occasional Schistocytes None seen Sodium 142 (137-145) mmol/L Potassium 3.5 (3.4-5.0) mmol/L Chloride 109 H (98-107) mmol/L Carbon Dioxide 22 (22-30) mmol/L Anion Gap 11 (4-12) mmol/L BUN 6 L (7-17) mg/dL Creatinine 0.48 L (0.7-1.0) mg/dL Estim Creat Clear Calc 104 ml/min Estimated GFR > 60 (59 - ) Glucose 95 (65-110) mg/dL Calcium 9.8 (8.4-10.2) mg/dL Total Bilirubin 0.5 (0.2-1.3) mg/dL AST 33 (14-36) U/L ALT 26 (6-35) U/L Alkaline Phosphatase 86 (38-126) U/L Total Protein 8.5 H (6.3-8.2) g/dL Albumin 4.7 (3.5-5.1) g/dL Beta HCG, Quant 17.65 mIU/ML Urine Color Red H (Yellow) Urine Appearance Cloudy H (Clear) Urine pH 6.0 (5.0-9.0) Ur Specific [place] 1.015 (1.001-1.035) Urine Protein Trace (Negative) mg/dL Urine Glucose (UA) Negative (Negative) mg/dL Urine Ketones 4+ H (Negative) mg/dL Ur Blood (Man) 4+ H (Negative) Urine Nitrate Negative (Negative) Urine Bilirubin Negative (Negative) Urine Urobilinogen 0.2 (<2.0) mg/dL Leukocyte Esterase Rfl Negative (Negative) EDGARDO/UL Urine RBC >100 H (0-2) /hpf Urine WBC 0-5 (0-3) /hpf Ur Squamous Epith Cells None seen (Few) /hpf Urine Bacteria None seen /hpf Urine Casts 0-2 Influenza A (RT-PCR) Negative (Negative) Influenza B (RT-PCR) Negative (Negative) RSV (RT-PCR) Negative (Negative) SARS-CoV-2 RNA (RT-PCR) Negative (Negative) Group A Strep (PCR) Not detected (Negative) Imaging Data Radiologist's impression: ITS Impressions Pelvis Ultrasound 06/04/25 18:12 IMPRESSION: 1. Thickened heterogeneous endometrium with increased vascularity, consistent with retained products of conception. Discharge Plan Discharge Clinical Impression: Retained products of conception Patient Disposition: Still a Patient Condition: Stable Patient Language: Cymraes Prescriptions: No Action famotidine [Acid Controller] 20 mg tablet 20 mg PO DAILY PRN (Reason: heartburn) Follow-up/Referrals: PHYSICIAN,PREPARED FOODS SUPERVISOR [Primary Care Provider, Internal Medicine]
--- NOTE | 2025-06-04 18:39 | P.HP_ITS ---
H&P: HPI History of Present Illness Date/Time: 06/04/25 18:39 Chief Complaint: vaginal bleeding retained products of conception Narrative: 34-year-old who presents 1 month from repeat . Patient had been doing well without any bleeding issues. She started having bleeding about four days ago. She states the bleeding has increased. Upon evaluation in the ED her beta HCG level was still mildly elevated. Imaging showed concern for possible retained products of conception. She denies any fevers, chills, nausea, vomiting. Review of Systems Constitutional: Constitutional: Reports no additional constitutional complaints Cardiovascular: Cardiovascular: Denies chest pain, Denies leg edema, Denies palpitations, Denies dyspnea and Denies dyspnea on exertion Respiratory: Respiratory: Denies cough, Denies dyspnea and Denies dyspnea on exertion Gastrointestinal: Gastrointestinal: Denies abdominal pain, Denies constipation, Denies diarrhea, Denies nausea and Denies vomiting Genitourinary: Genitourinary: Denies hematuria, Denies urinary frequency, Rashaad es dysuria, Denies pelvic pain, Denies urinary incontinence and Denies vaginal discharge Neurologic: Reports system reviewed and no additional complaints, except as documented Psychiatric: Psychiatric: Reports no additional psychiatric complaints Endocrine: Endocrine: Denies palpitations PMFSH Past Medical History Medical History Suppression of menses Thyroid disease Hyperlipidemia Anxiety Healthy female adult Surgical History Surgical History Delivery by section (12/27/22) Delivery by section (09/02/19) Delivery by section (04/07/18) Family History Family History Sibling Graves disease Alex's disease Grandparent Heart disease Hypertension Father Asthma Mother Hypertension Other Unknown family medical history Social History Social History Smoking status: Never smoker Second hand tobacco smoke exposure: Yes Alcohol intake: never Substance use: never Substance use type: does not use Lack of Transportation: No Lack of Food: Never True Current Housing: I Have Housing Concerned About Future Housing: No Difficulty Paying Gas/Electric Bills: No Difficulty Paying for Meds: No Currently Unemployed: No Education: High School Diploma/GED Difficulty w/ Childcare or Family Care: No Living arrangements: with family Additional living arrangements comments: Occupation/Education: 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 Gender identity (if verbalized by the patient): Female Sexual Orientation (if Verbalized by the Patient): Straight or Heterosexual Spiritual care concerns: No Meds Home Medications and Allergies Home Medications ?Medication ?Instructions ?Recorded ?Confirmed ?Type famotidine 20 mg tablet (Acid 20 mg PO DAILY PRN heart burn 05/04/25 06/01/25 History Controller) Allergies Allergy/AdvReac Type Severity Reaction Status Date / Time Penicillins Allergy Severe Hives Verified 06/04/25 11:43 amoxicillin Allergy Intermediate Hives Verified 06/04/25 11:43 Vital Signs Vital Signs - 24 hr 06/04/25 11:45 06/04/25 15:32 06/04/25 18:16 Temperature 97.4 F L Pulse Rate 92 87 91 Respiratory Rate 16 19 14 Blood Pressure 122/77 127/85 129/71 Pulse Oximetry 100 100 98 Oxygen Delivery Room Air Exam Const: General: no acute distress Eyes: EOM: EOMs intact bilaterally Neck: Neck: supple Thyroid: thyroid normal Chest: Breast/axilla inspection: normal inspection of the breasts Breast/axilla palpation: normal palpation of the breasts, normal palpation of the axillae and no axillary lymphadenopathy Resp: Effort & Inspection: normal respiratory effort Auscultation: clear to auscultation bilaterally Cardio: Rate: regular rate Rhythm: regular rhythm GI: Inspection: non-distended GI Palp: Yes Soft to palpation, No Tenderness to palpation present (GI) and No Guarding due to palpation present (GI) Auscultation: normal bowel sounds : General: No bladder normal to palpation External Female Exam: normal external appearance Speculum Exam - Vagina: normal vaginal discharge and No vaginal bleeding Speculum Exam - Cervix: nontender Bimanual exam- vagina & uterus: No bladder normal to palpation and No Cervical tenderness present OB/external & speculum: No vaginal bleeding Skin: General skin exam: normal color and no rashes or lesions noted Neuro: Cognition (Neuro): normal cognition Speech: normal speech Extrem: General: normal to inspection and no edema Psych: Mental Status: mental status grossly normal Affect: normal affect Results Labs Labs: Short CBC 06/04/25 Range/Units 16:03 WBC 6.0 (4.5-10.0) K/mm3 Hgb 12.0 (12.0-15.0) g/dL Hct 37.3 (37.0-47.0) % Plt Count 188 (150-375) k/mm3 BMP 06/04/25 16:03 Sodium 142 Potassium 3.5 Chloride 109 H Carbon Dioxide 22 BUN 6 L Creatinine 0.48 L Glucose 95 Calcium 9.8 Liver Function 06/04/25 Range/Units 16:03 Total Bilirubin 0.5 (0.2-1.3) mg/dL AST 33 (14-36) U/L ALT 26 (6-35) U/L Alkaline Phosphatase 86 (38-126) U/L Albumin 4.7 (3.5-5.1) g/dL Urine 06/04/25 Range/Units 15:38 Urine Color Red H (Yellow) Urine Appearance Cloudy H (Clear) Urine pH 6.0 (5.0-9.0) Ur Specific [place] 1.015 (1.001-1.035) Urine Protein Trace (Negative) mg/dL Urine Glucose (UA) Negative (Negative) mg/dL Assessment and Plan Assessment and plan (1) Retained products of conception: Status: Acute Assessment and Plan: 34 yo female who presents with vaginal bleeding 1 month after Beta HCG still positive at 17 imaging showed heterogenous material in the uterus measuring 3.4cm imaging suspicious for retained products of conception patients bleeding has been stable H/H stable will plan for suction D&C risks, benefits, alternatives discussed (2) Vaginal bleeding: Code(s): N93.9 - Abnormal uterine and vaginal bleeding, unspecified Status: Acute
[2025-06-04] MEDS: ACETAMINOPHEN 325 MG TABLET 650 MG PO (19:38)
--- NOTE | 2025-06-04 19:41 | WPCEDHO ---
ED Hand Off Checklist All vitals saved:YES IV Site documented:YES All med administrations documented: YES Triage Note Triage Note pt had a 4 weeks ago. 06/04/25 11:41 pt now reports she has vaginal bleeding, started on 05/31, described as light, now much heavier, about one pad per hr Allergies Penicillins Allergy (Severe, Verified 06/04/25 11:43) Hives amoxicillin Allergy (Intermediate, Verified 06/04/25 11:43) Hives Family History (Last Reviewed 05/03/25 @ 13:57 by Jayashree Hinojosa [facility]) Sibling Graves disease Alex's disease Grandparent Heart disease Hypertension Father Asthma Mother Hypertension Other Unknown family medical history Active Medications including assessments/comments Acetaminophen (Acetaminophen 325 Mg Tablet) 650 mg PO Q4H PRN PRN Reason: Mild Pain (1-3) or Fever Last Admin: 06/04/25 19:38 Dose: 650 mg Documented By: KARINE LIU Pain Assessment Document 06/04/25 19:38 KARINE (Rec: 06/04/25 19:38 KARINE [id number]) Pain Evaluation Pain Evaluation Assessment Pain Scale Pain Scale Used Numeric (1 - 10) Order Parameters Order Parameters for Pain Level 1-3 (Mild) Administering this Pain Med Self Report Pain Assessment Reported Pain Level 2 Pain Score Pain Score 2: Self Report Interventions/Assessments General Assessment Start: 06/04/25 11:41 Freq: Status: Active Protocol: Document 06/04/25 15:33 [facility] (Rec: 06/04/25 15:34 [facility] [id number]) [place] Genitourinary Assessment Genitourinary Hematuria,Urgency Symptoms Urine Color Red Urine Clear Characteristics IV / Saline Lock, Insert Start: 06/04/25 11:41 Freq: Status: Active Protocol: Document 06/04/25 19:40 KARINE (Rec: 06/04/25 19:40 KARINE [id number]) IV Assessment Peripheral Access Left Wrist IV Catheter Access Continued IV Site Assessment WNL IV Care and WNL Maintenance Last Vital Signs Temperature 97.7 F 06/04/25 19:40 Pulse Rate 85 06/04/25 19:40 Respiratory Rate 14 06/04/25 19:40 Pulse Oximetry 97 06/04/25 19:40 Blood Pressure 126/78 06/04/25 19:40 Blood Pressure Mean 94 06/04/25 19:40 Blood Pressure Position Sitting 06/04/25 19:40 Oxygen Delivery Room Air 06/04/25 11:45 Weight 49.1 kg 06/04/25 11:45 Last Result - Abnormals Only RBC 4.16 M/mm3 (4.2-5.4) L 06/04/25 16:03 Chloride 109 mmol/L (98-107) H 06/04/25 16:03 BUN 6 mg/dL (7-17) L 06/04/25 16:03 Creatinine 0.48 mg/dL (0.7-1.0) L 06/04/25 16:03 Total Protein 8.5 g/dL (6.3-8.2) H 06/04/25 16:03 Urine Color Red (Yellow) H 06/04/25 15:38 Urine Appearance Cloudy (Clear) H 06/04/25 15:38 Urine Ketones 4+ mg/dL (Negative) H 06/04/25 15:38 Ur Blood (Man) 4+ (Negative) H 06/04/25 15:38 Urine RBC >100 /hpf (0-2) H 06/04/25 15:38 Most Recent Suicide Severity Rating Suicide Severity Rating NO RISK INDICATED 06/04/25 11:41
[2025-06-04] MEDS: SODIUM CHLORIDE 0.9% IV 1,000 ML 125 ML IV CONT (23:26)
[2025-06-05] VITALS (9 sets, daily range): BP systolic 113–135; BP diastolic 57–85; PULSE 54–93; RESP 12–17; TEMP 36.6; O2SAT 98–100
[2025-06-05] MEDS: ONDANSETRON INJ 4 MG/2 ML VIAL IV PUSH (05:56)
--- NOTE | 2025-06-05 07:10 | WPDHPUPDATE1 ---
History and Physical Update Update Date/Time: 06/05/25 07:10 History and Physical has been reviewed, including an updated exam of the patient. There are NO changes in the patient's condition. Risks, benefits, and alternatives have been discussed and questions answered. Patient agrees to proceed with procedure.
--- NOTE | 2025-06-05 07:15 | PC.NURSE ---
0700--Pt. to pre-op via wheelchair.
--- NOTE | 2025-06-05 07:31 | P.PNAN_ITS ---
Anes - Initial Pre Proc Eval Procedure: Operation Date: 06/05/25 07:30 Proposed Procedures p D&C Suction and Sharp - Quintin Mejias MD Date/Time: 06/05/25 07:31 Surgeon: Quintin Mejias MD Pre Op Diagnosis: retained products of conception Patient Data Age: 34 Gender: F Height: 1.55 m Weight: 49.1 kg Last Vital Signs Temp 97.9 F 06/05/25 06:40 Pulse 68 06/05/25 06:40 Resp 15 06/05/25 06:40 BP 118/79 06/05/25 06:40 Pulse Ox 98 06/05/25 06:40 O2 Del Method Room Air 06/04/25 20:36 Allergies Allergy/AdvReac Type Severity Reaction Status Date / Time Penicillins Allergy Severe Hives Verified 06/04/25 11:43 amoxicillin Allergy Intermediate Hives Verified 06/04/25 11:43 Home Medications ?Medication ?Instructions ?Recorded ?Confirmed ?Type famotidine 20 mg tablet (Acid 20 mg PO DAILY PRN heart burn 05/04/25 06/01/25 History Controller) Laboratory Tests 06/04/25 06/04/25 06/04/25 15:38 15:41 16:03 WBC 6.0 K/mm3 (4.5-10.0) RBC 4.16 L M/mm3 (4.2-5.4) Hgb 12.0 g/dL (12.0-15.0) Hct 37.3 % (37.0-47.0) MCV 89.7 fl (80-100) MCH 28.8 pg (26-34) MCHC 32.2 g/dl (32-36) RDW 13.2 % (11.5-14.5) Plt Count 188 k/mm3 (150-375) MPV 9.6 fl (7.4-10.4) Immature Gran % (Auto) Not Reportable Neut % (Auto) Not Reportable Lymph % (Auto) Not Reportable [place] % (Auto) Not Reportable Eos % (Auto) Not Reportable Baso % (Auto) Not Reportable Lymph # (Auto) Not Reportable [place] # (Auto) Not Reportable Eos # (Auto) Not Reportable Baso # (Auto) Not Reportable Abs Immat Gran (auto) Not Reportable Absolute Neuts (auto) Not Reportable Absolute Nucleated RBC Not Reportable Total Counted 100 Neutrophils % (Manual) 62 % (46-73) Band Neutrophils % 2 % (0-6) Lymphocytes % (Manual) 29 % (18-44) Monocytes % (Manual) 5 % (3-9) Eosinophils % (Manual) 1 % (0-4) Basophils % (Manual) 1 % (0-1) Nucleated RBC % Not Reportable Abs Neuts (Manual) 3.84 K/mm3 (1.3-6.7) Abs Lymphs (Manual) 1.74 K/mm3 (1.1-4.5) Abs Monocytes (Manual) 0.30 K/mm3 (0.1-0.90) Absolute Eos (Manual) 0.06 K/mm3 (0.02-0.50) Abs Basophils (Manual) 0.06 K/mm3 (0.0-0.1) Platelet Estimate Adequate (Adequate) [place] Cells Occasional Schistocytes None seen Sodium 142 mmol/L (137-145) Potassium 3.5 mmol/L (3.4-5.0) Chloride 109 H mmol/L (98-107) Carbon Dioxide 22 mmol/L (22-30) Anion Gap 11 mmol/L (4-12) BUN 6 L mg/dL (7-17) Creatinine 0.48 L mg/dL (0.7-1.0) Estim Creat Clear Calc 104 ml/min Estimated GFR > 60 (59 - ) Glucose 95 mg/dL (65-110) Calcium 9.8 mg/dL (8.4-10.2) Total Bilirubin 0.5 mg/dL (0.2-1.3) AST 33 U/L (14-36) ALT 26 U/L (6-35) Alkaline Phosphatase 86 U/L (38-126) Total Protein 8.5 H g/dL (6.3-8.2) Albumin 4.7 g/dL (3.5-5.1) Beta HCG, Quant 17.65 mIU/ML Urine Color Red H (Yellow) Urine Appearance Cloudy H (Clear) Urine pH 6.0 (5.0-9.0) Ur Specific [place] 1.015 (1.001-1.035) Urine Protein Trace mg/dL (Negative) Urine Glucose (UA) Negative mg/dL (Negative) Urine Ketones 4+ H mg/dL (Negative) Ur Blood (Man) 4+ H (Negative) Urine Nitrate Negative (Negative) Urine Bilirubin Negative (Negative) Urine Urobilinogen 0.2 mg/dL (<2.0) Leukocyte Esterase Rfl Negative [place]/UL (Negative) Urine RBC >100 H /hpf (0-2) Urine WBC 0-5 /hpf (0-3) Ur Squamous Epith Cells None seen /hpf (Few) Urine Bacteria None seen /hpf Urine Casts 0-2 Influenza A (RT-PCR) Negative (Negative) Influenza B (RT-PCR) Negative (Negative) RSV (RT-PCR) Negative (Negative) SARS-CoV-2 RNA (RT-PCR) Negative (Negative) Group A Strep (PCR) Not detected (Negative) Patient hx anesthesia problems: none Family hx anesthesia problems: none Results Review: All pre-operative results and documents have been reviewed as part of the pre- operative evaluation. FORMERLY [facility], [facility] Past Medical History Medical History Suppression of menses Thyroid disease Hyperlipidemia Anxiety Healthy female adult Surgical History Surgical History Delivery by section (12/27/22) Delivery by section (09/02/19) Delivery by section (04/07/18) Family History Family History Sibling Graves disease Alex's disease Grandparent Heart disease Hypertension Father Asthma Mother Hypertension Other Unknown family medical history Social History Social History Smoking status: Never smoker Second hand tobacco smoke exposure: Yes Alcohol intake: never Substance use: never Substance use type: does not use Lack of Transportation: No Lack of Food: Never True Current Housing: I Have Housing Concerned About Future Housing: No Difficulty Paying Gas/Electric Bills: No Difficulty Paying for Meds: No Currently Unemployed: No Education: High School Diploma/GED Difficulty w/ Childcare or Family Care: No Living arrangements: with family Additional living arrangements comments: Occupation/Education: 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 Gender identity (if verbalized by the patient): Female Sexual Orientation (if Verbalized by the Patient): Straight or Heterosexual Spiritual care concerns: No Anes - Eval Final PreProcedure Day of Procedure 06/05/25 07:31 Patient weight: normal Lungs: normal air movement Airway: Mallampati scale class II Neurological: alert and oriented Last oral intake: >/= 8 hours ASA classification: I Emergent: no Anesthetic plan: proceed Anesthesia type and monitoring: general GIVS and standard monitoring Results Review: All pre-operative results and documents have been reviewed as part of the pre- operative evaluation. Overall healthy, pt has had recent cough/URI, improving but still w persistent cough. Overall very healthy, no cp or sob w walking 1-2 fos. Informed Consent: The patient's anesthetic plan and its attendant risks and benefits were discussed with the patient/family/POA. Questions were solicited and answers provided to the satisfaction of the patient/family/POA.
--- NOTE | 2025-06-05 07:45 | S_PTH ---
PATIENT: Janene Bishop LOC: [facility] U#:[id number] AGE/SX: 34/F ROOM: 113 RE06/04/[address]: Quintin Mejias MD : 1990 BED: 00 DIS: 06/05/2025 SPEC #: [id number] RECD: 06/07/25 08:09 STATUS: MERRILL REShaina #: [id number] TREVON: 06/05/25 07:[address]: Quintin Mejias DEPT: [facility] [place] Surgical RECD BY: Adry Ceron ENTERED: 06/07/25 08:09 SP TYPE: Surgical OTHR DR: SHOW HOST OR HOSTESS PHYSICIAN Jalil Stokes MD Tissues: A - Uterine Contents Procedures: Hematoxylin and Eosin Stain Gross and Microscopic Level 4
--- NOTE | 2025-06-05 07:52 | W.PM.PROC2 ---
Procedure Note - Detailed Date of Procedure 06/05/25 Pre-op Diagnosis retained products of conception Post-op Diagnosis Same Procedure Performed Suction Dilation & curettage Surgeon Quintin Mejias MD Anesthesia General Indications retained products of conception vaginal bleeding Findings intrauterine products of conception Description of Procedure The patient was taken to the operating room after retained products of conception had been noted on on transvaginal ultrasound. The risks, benefits and alternatives of the procedure were reviewed with the patient and informed consent was obtained. The patient was taken to the OR and anesthesia was noted to be adequate. The patient was placed in the lithotomy position. Pelvic exam was performed with findings noted above. The patient was prepped and draped in the usual sterile fashion. Sterile speculum was placed in the vagina and the cervix was grasped with a tenaculum. The cervix was dilated further to allow for passage of a 8 mm suction curette. The 8 mm suction curette was gently advanced to the fundus, suction was activated, and the tip was rotated while being withdrawn to clear the uterus of products. This suction process was repeated 3 additional times due to the quantity of material in the uterus. The sharp curette was introduced and advanced to the fundus to remove any remaining products. The suction curette was reintroduced one final time to ensure all products had been removed. The tenaculum was removed. Good hemostasis was noted. Instrument, sponge, and sharp counts were correct. Patient tolerated the procedure well and was taken to the recovery room in stable condition. Estimated Blood Loss 10 Drains No Packing No Pathology Yes (products of conception) Complications No immediate complications Condition Stable Disposition Floor [facility] Billing Surgery - Charge Forward: Surgery Billing
--- NOTE | 2025-06-05 07:55 | PM.DS ---
DS: Admitting Diagnosis Discharge Date 06/05/25 Admitting Diagnosis vaginal bleeding retained products of conception DS: Discharge Diagnosis Discharge Diagnosis (1) Retained products of conception: Status: Acute DS: Summary Hospital Course Hospital Course: 34 yo female who presented with vaginal bleeding from . Pelvic imaging suggested retained products of conception. Patient was hemodynamically stable. Patient underwent an uncomplicated suction D&C. Patient was discharged home postoperatively. Status at Discharge Functional status at discharge: independent ambulation Overall status at discharge: patient is back to baseline Time Spent with Patient Time attestation: Total time spent providing and/or coordinating discharge services: Time spent: Less than 30 minutes Exam Const: General: no acute distress Eyes: EOM: EOMs intact bilaterally Neck: Neck: supple Thyroid: thyroid normal Chest: Breast/axilla inspection: normal inspection of the breasts Breast/axilla palpation: normal palpation of the breasts, normal palpation of the axillae and no axillary lymphadenopathy Resp: Effort & Inspection: normal respiratory effort Auscultation: clear to auscultation bilaterally Cardio: Rate: regular rate Rhythm: regular rhythm GI: Inspection: non-distended GI Palp: Yes Soft to palpation, No Tenderness to palpation present (GI) and No Guarding due to palpation present (GI) Auscultation: normal bowel sounds : General: No bladder normal to palpation External Female Exam: normal external appearance Speculum Exam - Vagina: normal vaginal discharge and No vaginal bleeding Speculum Exam - Cervix: nontender Bimanual exam- vagina & uterus: No bladder normal to palpation and No Cervical tenderness present OB/external & speculum: No vaginal bleeding Skin: General skin exam: normal color and no rashes or lesions noted Neuro: Cognition (Neuro): normal cognition Speech: normal speech Extrem: General: normal to inspection and no edema Psych: Mental Status: mental status grossly normal Affect: normal affect DS: Data Data Completed and Pending Pending studies at discharge: Pending at discharge 06/05/25 07:45 Surgical [PTH] Routine Labs on day of discharge: Labs from last 24 hours 06/04/25 06/04/25 06/04/25 16:03 15:41 15:38 WBC 6.0 RBC 4.16 L Hgb 12.0 Hct 37.3 MCV 89.7 MCH 28.8 MCHC 32.2 RDW 13.2 Plt Count 188 MPV 9.6 Immature Gran % (Auto) Not Reportable Neut % (Auto) Not Reportable Lymph % (Auto) Not Reportable [place] % (Auto) Not Reportable Eos % (Auto) Not Reportable Baso % (Auto) Not Reportable Lymph # (Auto) Not Reportable [place] # (Auto) Not Reportable Eos # (Auto) Not Reportable Baso # (Auto) Not Reportable Abs Immat Gran (auto) Not Reportable Absolute Neuts (auto) Not Reportable Absolute Nucleated RBC Not Reportable Total Counted 100 Neutrophils % (Manual) 62 Band Neutrophils % 2 Lymphocytes % (Manual) 29 Monocytes % (Manual) 5 Eosinophils % (Manual) 1 Basophils % (Manual) 1 Nucleated RBC % Not Reportable Abs Neuts (Manual) 3.84 Abs Lymphs (Manual) 1.74 Abs Monocytes (Manual) 0.30 Absolute Eos (Manual) 0.06 Abs Basophils (Manual) 0.06 Platelet Estimate Adequate [place] Cells Occasional Schistocytes None seen Sodium 142 Potassium 3.5 Chloride 109 H Carbon Dioxide 22 Anion Gap 11 BUN 6 L Creatinine 0.48 L Estim Creat Clear Calc 104 Estimated GFR > 60 Glucose 95 Calcium 9.8 Total Bilirubin 0.5 AST 33 ALT 26 Alkaline Phosphatase 86 Total Protein 8.5 H Albumin 4.7 Beta HCG, Quant 17.65 Urine Color Red H Urine Appearance Cloudy H Urine pH 6.0 Ur Specific [place] 1.015 Urine Protein Trace Urine Glucose (UA) Negative Urine Ketones 4+ H Ur Blood (Man) 4+ H Urine Nitrate Negative Urine Bilirubin Negative Urine Urobilinogen 0.2 Leukocyte Esterase Rfl Negative Urine RBC >100 H Urine WBC 0-5 Ur Squamous Epith Cells None seen Urine Bacteria None seen Urine Casts 0-2 Influenza A (RT-PCR) Negative Influenza B (RT-PCR) Negative RSV (RT-PCR) Negative SARS-CoV-2 RNA (RT-PCR) Negative Group A Strep (PCR) Not detected Discharge Plan Discharge Consulting providers: Jalil Stokes Discharging Clinician: Quintin Mejias Patient Disposition: Home Activity: as tolerated and pelvic rest Diet: regular Patient Instructions: Antibiotic Form, Dilation and Curettage (DC) Patient Language: German Stand Alone Forms: General Discharge Information Follow-up/Referrals: Quintin Mejias MD [Physician, BOX LINING MACHINE OPERATOR] - 2 Weeks Discharge Medications: New acetaminophen 500 mg tablet 500 mg PO Q6H PRN (Reason: pain) Qty: 30 0RF ibuprofen 600 mg tablet 600 mg PO Q6H PRN (Reason: pain) Qty: 30 0RF Continued famotidine [Acid Controller] 20 mg tablet 20 mg PO DAILY PRN (Reason: heartburn) Date of admission: 06/04/25 18:47 Primary Care Provider: PHYSICIAN,LEAD SYSTEMS DEVELOPER Admitting Provider: Quintin Mejias Attending physician on admission: Quintin Mejias Condition: Stable
[2025-06-05] MEDS: LACTATED RINGERS 1,000 ML 30 ML IV CONT (07:59)
[2025-06-05] MEDS: DOXYCYCLINE HYCLATE 100 MG TABLET 200 MG PO (08:32)
[2025-06-05] MEDS: oxyCODONE HCL (*CRX) 5 MG TAB IR PO (08:32)
--- NOTE | 2025-06-05 09:39 | PC.NURSE ---
0910--IV DC'd, DC instructions reviewed with pt. and her , both verbalized understanding.
== END 2025-06-05 09:20 | disposition home or self-care (01) ==
LOC: ANHED 18:51 → ANHOBPP 19:43
PROVIDERS: Admitting Provider Student in an Organized Health Care Education/Training Program; Emergency Provider Emergency Medicine; Visit Provider Student in an Organized Health Care Education/Training Program
PROC: (CPT 59160; principal; 2025-06-05 07:30)
DX: O72.2 Delayed and secondary postpartum hemorrhage (principal); O44.13 Complete placenta previa with hemorrhage, third trimester; O02.9 Abnormal product of conception, unspecified; R97.8 Other abnormal tumor markers; Z3A.32 32 weeks gestation of pregnancy; E07.9 Disorder of thyroid, unspecified; E78.5 Hyperlipidemia, unspecified; F41.9 Anxiety disorder, unspecified; Z20.822 Contact with and (suspected) exposure to COVID-19; Z98.891 History of uterine scar from previous surgery
CPT/HCPCS: 59160; 36415; 76856; 80053; 81001; 84702; 85025; 87637; 87651; 88305; 96361; 96374; 99285; A9270; G0378; G0379; J1885; J2003; J2250; J2405; J2704; J7030; J7120